=== PATIENT | male | born 1940 | race Caucasian/White ===

== ENCOUNTER 2016-07-24 09:44 | Inpatient (IN) ==
--- NOTE | 2016-07-21 21:35 | Discharge Summary ---
<Kady Fan - Last Filed: 07/23/16 16:41> Date of Encounter: 07/23/16 - Discharge Diagnosis (1) Loosening of shoulder joint prosthesis Priority: Primary Status: Acute Qualifiers: Encounter type: initial encounter Qualified Code(s): T84.038A - Mechanical loosening of other internal prosthetic joint, initial encounter; Z96.619 - Presence of unspecified artificial shoulder joint (2) CAD (coronary artery disease) Priority: Secondary Status: Chronic Qualifiers: Coronary Disease-Associated Artery/Lesion type: unspecified vessel or lesion type [place] vs. transplanted heart: unspecified whether [place] or transplanted heart Associated angina: angina presence unspecified Qualified Code(s): I25.10 - Atherosclerotic heart disease of [place] coronary artery without angina pectoris (3) MICHAEL (obstructive sleep apnea) Priority: Secondary Status: Chronic Comments: CPAP use at hospital (4) Asthma Priority: Secondary Status: Chronic Qualifiers: Asthma severity: unspecified severity Asthma complication type: uncomplicated Qualified Code(s): J45.909 - Unspecified asthma, uncomplicated (5) GERD (gastroesophageal reflux disease) Priority: Secondary Status: Chronic Qualifiers: Esophagitis presence: esophagitis presence not specified Qualified Code(s) : K21.9 - Gastro-esophageal reflux disease without esophagitis (6) HTN (hypertension) Priority: Secondary Status: Chronic Qualifiers: Hypertension type: essential hypertension Qualified Code(s): I10 - Essential (primary) hypertension - Discharge Medications Home Medications: OxyCODONE Immed Rel [Roxicodone 5 MG] 5 - 10 mg PO Q6HR PRN #40 tablet 07/21/16 [Rx] Acitretin [Soriatane] 10 mg PO DAILY 07/24/16 [History] Atorvastatin [Lipitor] 40 mg PO HS 07/24/16 [History] Cephalexin [Keflex] 500 mg PO BID 07/24/16 [History] Ciclopirox [Loprox] 120 ml TP 3XW 07/24/16 [History] Ergocalciferol (VITAMIN D2) [Vitamin D2] 50,000 unit PO FLORES 07/24/16 [History] Finasteride [Proscar] 5 mg PO DAILY 07/24/16 [History] FluocinoNIDE 0.05% CRM [Lidex] 1 appl TP 3XW 07/24/16 [History] Fluticasone/Salmeterol [Advair Hfa 230-21 Mcg Inhaler] 2 puff IH BID 07/24/16 [ History] Hydrochlorothiazide 25 mg PO DAILY 07/24/16 [History] Ipratropium/Albuterol Neb [Duoneb] 3 ml IH Q6HR PRN 07/24/16 [History] Isosorbide MONOnitrate (24 HR) [Imdur] 60 mg PO DAILY 07/24/16 [History] Levothyroxine [Synthroid] 50 mcg PO 0630 07/24/16 [History] NIFEdipine XL (24 HR) [Procardia XL] 60 mg PO DAILY 07/24/16 [History] Nitroglycerin [Nitrostat] 0.4 mg SL Q5M PRN 07/24/16 [History] Omeprazole [PriLOSEC] 20 mg PO DAILY 07/24/16 [History] Potassium Chloride [Klor-Con] 20 meq PO DAILY 07/24/16 [History] Allergies/Adverse Reactions: Allergies No Known Allergies Allergy (Verified 07/24/16 11:57) Primary care physician: Noel Petty - Patient Status Disposition: Home, Self-Care Condition: Good - Discharge Instructions Follow Up With: Marcellus Butler MD [Partnered Physician] - 08/01/16 1:00 pm Noel Petty DO [Primary Care Provider] - Additional Instructions: Discharge Instructions: Total Shoulder Please call [facility] ([phone]), your Primary Care Physician, or report to the Emergency Room if you have any of the following symptoms: Nausea, vomiting, fever greater that 101.5, swelling, chest pain, shortness of breath, increased pain/redness/drainage/odor for your incision site, numbness/ tingling, or any other concerning symptoms. ACTIVITY: Always keep your arm in the sling. Do not raise your arm away from your body. Do not use your arm to help with getting in or out of bed. No weight bearing permitted. Only perform those exercises given to you by your therapist. MEDICATIONS: Upon discharge resume your home medications. Take all the medications as prescribed. Take a stool softener if taking narcotic pain medications. Stool softeners are only effective if you drink enough fluids. Drink 6-8 glass of water or fluids a day, unless this is not allowed for another health problem. Despite using stool softeners, if you haven't had a bowel movement in 3 days, please switch to a gentle laxative. Gentle laxatives are sold over the counter. You should have a bowel movement within 24 hours, if not call the office. You will be discharged from the hospital with a prescription for pain medication. You are encouraged to decrease the use of narcotic pain medication as tolerated. Should you require a refill, please call the office. [facility] prescribes narcotic pain medication for only 4-6 weeks after surgery. If you require pain medication beyond this time period, you may be referred to your Primary Care Physician or to the Pain Clinic for further evaluation. Plan ahead for refills on pain medication as many narcotics either need to be picked up at the office or mailed. It is best to call 48-72 hours in advance of needing a prescription refill so you don't run out of medication. To help control the post-operative pain, you may take NSAIDs (Aleve,Advil, Motrin, ibuprofen, naprosyn) or Tylenol as prescribed on the bottle in addition to the pain medication. WOUND CARE: Leave the dressing on for 7 days. You may change the dressing if it becomes saturated greater than 50%. You can shower but not a tub bath or submerge your incision in water. Wash your hands with antibacterial soap, rinse and dry prior to any wound care. If you have tiffani the visiting nurse or rehab facility can remove the stapes 10-14 days after surgery and place steri -strips across the wound. Leave the steri-strips in place until they fall off on their won. You may let water from the shower run on top of the steri- stirips. If you do not have a visiting nurse or rehab facility, you will need to return to the office at 10-14 days for the tiffani to be removed. FOLLOW-UP: Please follow up with your surgeon in the orthopedic clinic, as scheduled - Hospital Course Hospital course: Mr. Mazariegos is a 75 year old male - Time Spent with Patient Total time spent providing and/or coordinating discharge services: <Marcellus Butler - Last Filed: 07/25/16 08:40> Date of Encounter: 07/25/16 Time of Encounter: 08:39 - Discharge Diagnosis (1) Loosening of shoulder joint prosthesis Priority: Primary Status: Acute Qualifiers: Encounter type: subsequent encounter Qualified Code(s): T84.038D - Mechanical loosening of other internal prosthetic joint, subsequent encounter; Z96.619 - Presence of unspecified artificial shoulder joint (2) Asthma Priority: Secondary Status: Chronic Qualifiers: Asthma severity: unspecified severity Asthma complication type: uncomplicated Qualified Code(s): J45.909 - Unspecified asthma, uncomplicated (3) CAD (coronary artery disease) Priority: Secondary Status: Chronic Qualifiers: Coronary Disease-Associated Artery/Lesion type: [place] artery [place] vs. transplanted heart: unspecified whether [place] or transplanted heart Associated angina: angina presence unspecified Qualified Code(s): I25.10 - Atherosclerotic heart disease of [place] coronary artery without angina pectoris (4) GERD (gastroesophageal reflux disease) Priority: Secondary Status: Chronic Qualifiers: Esophagitis presence: esophagitis presence not specified Qualified Code(s) : K21.9 - Gastro-esophageal reflux disease without esophagitis (5) HTN (hypertension) Priority: Secondary Status: Chronic Qualifiers: Hypertension type: essential hypertension Qualified Code(s): I10 - Essential (primary) hypertension (6) MICHAEL (obstructive sleep apnea) Priority: Secondary Status: Chronic Primary care physician: Noel Petty - Patient Status Functional capacity at discharge: independent ambulation Overall status at discharge: patient is progressing back to baseline - Hospital Course Hospital course: Mr. Mazariegos is a 75 year old male The patient had an uneventful postoperative course. They received antibiotics and physical therapy and were discharged in stable condition. There will follow -up in the office in 2 weeks. - Time Spent with Patient Total time spent providing and/or coordinating discharge services:
--- NOTE | 2016-07-24 10:04 | History & Physical Report ---
Date of Encounter: 07/24/16 Time of Encounter: 10:03 24 Hour HP Update - Instructions Instructions: If the History and Physical is less than 30 days old and was completed prior to A.M. admission and or procedure and has NOT been updated on calendar day of procedure please complete this update prior to performing procedure. - Update Patient reports changes in Medical Condition: No Changes in assessment/condition: No Changes in Medication: No Preop tests/diagnostics Reviewed: Yes Surgery Remains Indicated: Yes Consent for Planned Operative Procedure(s) Verified: Yes - Pre-Operative Checklist Preoperative Checklist Indicated: No Prophylactic Antibiotic Ordered: Yes Is VTE Prophylaxis Indicated?: Yes
[2016-07-24] MEDS ORDERED: Albuterol 2.5 MG/3 ML NEBULIZER IH ONE (10:10)
[2016-07-24] MEDS ORDERED: CeFAZolin Pre 2,000 MG/100 ML 2,000 MG/100 ML BAG IVPB ONE (10:10)
--- NOTE | 2016-07-24 10:14 | Anesthesia Evaluation PreOp ---
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: Denies Any Significant HX Other Medical History: Denies Any Significant HX, GERD, Other (Skin CA) Anesthesia History: No Prior Anesthetic Complications, Past Anesthesia Alcohol Use: unknown Drug use: none Medications and Allergies Atorvastatin 02/15/15 [History] Clopidogrel 02/15/15 [History] Cyclobenzaprine [Flexeril] 10 mg PO HS PRN #7 tablet 02/15/15 [Rx] Finasteride 02/15/15 [History] Hydrochlorothiazide 02/15/15 [History] Hydrocodone/Acetaminophen [[place] 5-325 Tablet] 1 tab PO Q6H PRN #10 tab [Rx] Levothyroxine 02/15/15 [History] NIFEdipine 02/15/15 [History] Omeprazole 02/15/15 [History] Sulfamethoxazole/Trimeth 02/15/15 [History] Albuterol Sulfate [Albuterol Inhaler] 2 puff IH QID 2 Days 09/06/15 [Rx] Benzonatate [Tessalon] 200 mg PO TID PRN #20 capsule 09/06/15 [Rx] Doxycycline 100 mg PO BID 7 Days 09/06/15 [Rx] MethylPREDNISolone [Medrol] 4 mg PO DAILY 6 Days 09/06/15 [Rx] OxyCODONE Immed Rel [Roxicodone 5 MG] 5 - 10 mg PO Q6HR PRN #40 tablet 07/21/16 [Rx] Allergies No Known Allergies Allergy (Unverified 01/03/15 08:26) - Meds/Allergy Pre-op Review Medications Reviewed: Yes Allergies Reviewed: Yes Beta Blockers on Current Med List: Yes If Beta Blockers taken, Date/Time (Last Dose taken): 07:00 07/24/2016 Anesthesia Results - Labs Laboratory Tests 07/15/16 07/15/16 07/15/16 08:26 08:26 08:26 WBC 8.9 Hgb 12.5 L Hct 38.6 Plt Count 256 INR 1.1 Sodium 140 Potassium 3.7 Chloride 102 Carbon Dioxide 27 BUN 28 H Creatinine 1.53 H Stress 01/03/2015 EFD - 70% No ischemis Echo 01/03/2015 EF 60-65% Mild diastolic dysfunction - Imaging EKG: image reviewed (SR, frequent PVC's and supraventricular premature complexes , RBBB, LAFB, LVH) Anesthesia Exam O2 Sat Height 1.68 m Height 1.68 m Weight 70.307 kg Weight 70.307 kg O2 Sat by Pulse Oximetry 100 Vital Signs Temp Pulse Resp BP Pulse Ox 98.6 F 97 18 157/87 100 07/24/16 10:07 07/24/16 10:07 07/24/16 10:07 07/24/16 10:07/24/16 10:07 - HEENT Pupil (Motor): Pupils equal, EOMI Mallampati: III Teeth: Normal Oral Opening: Greater than 3 - CALCINER OPERATOR LOC: Oriented CALCINER OPERATOR Motor: Normal RUE, Normal LUE, Normal RLE, Normal LLE, Normal Face CALCINER OPERATOR Sensory: Normal: RUE, LUE, RLE, LLE, Face - Cardiac Rhythm: Regular Murmur: None JVD: No Carotid Bruit: No - Pulmonary Breath Sounds: bilateral Clear Respiratory Effort: Symmetrical Anesthesia Assess/Plan ASA Score: 3 Modified [place] Scale for Level of Consciousness: Cooperative, oriented, and tranquil Anesthetic Plan: General, Regional (Left Brachial Plexus Block) Autologous Blood: Yes Monitoring Plan: Standard Monitors Recovery Plan: PACU
[2016-07-24] MEDS ORDERED: Ringers Solution, Lactated 1,000 ML IVC SCH ×3 (10:15→15:29)
[2016-07-24] MEDS ORDERED: *HR* FentaNYL (PF) 100 MCG/2 ML VIAL ONE (10:57)
[2016-07-24] MEDS ORDERED: *HR* Midazolam HCl 2 MG/2 ML VIAL ONE (10:57)
[2016-07-24] MEDS ORDERED: *HR* Propofol 200 MG/20 ML VIAL IVP ONE ×2 (10:58→11:38)
[2016-07-24] MEDS ORDERED: Lidocaine -MPF 2% 2 ML VIAL ONE (10:59)
[2016-07-24] MEDS ORDERED: ROPIVACAINE HCL/PF 0.5% 30 ML VIAL ONE (11:24)
--- NOTE | 2016-07-24 11:42 | Anesthesia Procedures ---
Date of Encounter: 07/24/16 Time of Encounter: 11:40 Procedures: Anesthesia - Nerve Block Procedure Date: 07/24/16 Time: 11:30 Allergies/Adv Reactions: NKA Pre-op Diagnosis: Left Shoulder arthritis Surgical Procedure: Left total shoulder reverse Checklist: Correct Patient Identifier, Correct procedure, History checked Correct side: Left Blood Thinner: No Monitor Applied: EKG, BP, Pulse Oximetry Supplemental Oxygen via Nasal Cannula (L/min): 2 Sedation: Versed (mg): 2 Sedation: Fentanyl (mcg): 100 Indication: Post Op Analgesia Pre-op Neuro Deficits: No Block Type: Supraclavicular, Other (SCP) Catheter placed: No Sterile Technique: Yes Ultrasound used: Yes Anatomy identified: Yes Visual spread of Local: Yes Neuro Stimulation: Yes Nerve Stimulator Range: 0.2 - 0.4 mA Blood on Needle Aspiration: No Smooth Injection of Local: Yes Pain with Injection of Local: No Prep: Chlorhexadine Needle: 22 x 50 mm Stimuplex Local: Ropivacaine (0.5% ) Volume (cc): 30ml Number of Attempts: 1 Complications: None/effective block Vitals: Vital Signs Temperature 98.6 F 07/24/16 10:07 Pulse Rate 97 07/24/16 10:07 Respiratory Rate 18 07/24/16 10:07 Blood Pressure 157/87 07/24/16 10:07 O2 Sat by Pulse Oximetry 100 07/24/16 10:07 Temperature 98.6 F 07/24/16 10:21 Pulse Rate 102 07/24/16 11:36 Respiratory Rate 16 07/24/16 11:36 Blood Pressure 146/79 07/24/16 11:36 O2 Sat by Pulse Oximetry 96 07/24/16 11:36
[2016-07-24] MEDS ORDERED: *HR* Morphine 2 MG/ML SYRINGE IVP PRN (11:43)
[2016-07-24] MEDS ORDERED: *HR* Promethazine 25 MG/ML VIAL IVP PRN (11:43)
[2016-07-24] MEDS ORDERED: Ondansetron 4 MG/2 ML VIAL ONE (13:12)
[2016-07-24] MEDS ORDERED: Dexamethasone 4 MG/ML VIAL ONE (13:12)
--- NOTE | 2016-07-24 13:18 | Orthopedic Operative Note ---
Date of procedure: 07/24/16 Pre-op diagnosis: Catastrophic loosening glenoid component left shoulder Post-op diagnosis: same Procedure: Procedure: Left Revision Total Shoulder replacement reverse Estimated blood loss: 200 cc Hardware: Arthrex: Small glenoid baseplate to 4.5 screws, one 6.5 screw, 5 stem , 15 mL spacer 6 constrained poly-spacer. 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 Patient had a significant cement mantle around humeral component.. Operative procedure: The patient was brought to the operating room and placed on the operating room table. The patient was placed in the modified beachchair position. All pressure points were padded appropriately. And the head was stabilized in the neutral position. The operative extremity was prepped and draped in the sterile surgical fashion. The patient received IV antibiotics prior to skin incision. A standard deltopectoral approach was made to the operative shoulder. Incision was made to the skin and subcutaneous tissue through the old incision,,hemo stasis was obtained with Bovie cautery. Using careful blunt dissection the deltopectoral interval was developed.. The deltopectoral interval was developed and the clavipectoral fascia was incised. An extensive debridement was performed, and the shoulder was dislocated. Cultures were obtained. Using an osteotome to clear out the soft tissue, the humeral component the head was removed first followed by the stem. The patient significant proximal bone loss. Anterior and posterior Bankart retractors were used to expose the glenoid , the glenoid component was removed without incident was completely displaced and fractured. The patient had poor glenoid bone stock. Decision was made to proceed with reverse shoulder replacement. The glenoid guide was seated the centering hole was made the glenoid was reamed with the appropriate reamer. This was positioned with an inferior tilt. The glenoid baseplate was seated and secured and locked in place with the locking screws. The baseplate was irrigated and dried the 36 lateral glenosphere was seated and secured. Attention was then turned to the humeral side. Bone cement was removed with the Stevie. This allowed for seating of a 5 stem. Had good rotational stability in 20 degrees of retroversion. Trial reduction found the shoulder to be relocatable and stable with the 15 metal and 6 constrained Veronika. The trial implants were removed the real implants were seated and secured in the shoulder was reduced. The patient had excellent motion and excellent stability no shuck. Fluoroscopy was used to confirm position of the glenoid component as well as the humeral stem within the humeral shaft. The deep tissue was irrigated with pulse irrigation deltopectoral interval was closed with #2 PDS suture. Superficially the subcutaneous tissue was closed with 0 PDS suture, the skin was closed with Dermabond. The patient placed sterile dressing, postoperative brace extubated and transferred to the recovery room in stable condition. Anesthesia: GETA Surgeon: Marcellus Butler Condition: stable Disposition: PACU
[2016-07-24 14:31] LABS: Hematocrit 36.5 % (37.5-50.1); Hemoglobin 11.9 g/dL (12.9-16.9)
--- NOTE | 2016-07-24 14:35 | Anesthesia Evaluation Post Op ---
Date of Encounter: 07/24/16 Time of Encounter: 14:34 - Vital Signs Vital Signs: Vital Signs/O2 Sat, Most Current Temp Pulse Resp BP Pulse Ox 97.4 F L 85 16 147/89 97 07/24/16 14:25 07/24/16 14:25 07/24/16 14:25 07/24/16 14:25 07/24/16 14:25 - Lungs Lungs: Clear Ascult./Percussion - Airway Airway: Non-obstructed - Cardiovascular Regular Rate - Mental Status Mental Status: Alert & Oriented, Answers Appropriately - Pain Pain Scale: 0 Pain Scale used: Numeric (1 - 10) - Nausea Vomiting Nausea Vomiting: Not Present - Hydration Hydration: Tolerates oral liquids, Has not voided - Discharge PostOp Status: Transfer Patient to floor
[2016-07-24] MEDS ORDERED: Sennosides 8.6 MG TABLET PO PRN (15:29)
[2016-07-24] MEDS ORDERED: *HR* OxyCODONE Immed Rel 5 MG TABLET PO PRN (15:29)
[2016-07-24] MEDS ORDERED: *HR* HYDROmorphone (PF) 1 MG/ML SYRINGE IVP PRN (15:29)
[2016-07-24] MEDS ORDERED: Ondansetron 4 MG/2 ML VIAL IVP PRN (15:29)
[2016-07-24] MEDS ORDERED: Acetaminophen 325 MG TABLET PO PRN (15:29)
[2016-07-24] MEDS ORDERED: MOM Conc 10 ML UD.LIQ PO PRN (15:29)
[2016-07-24] MEDS ORDERED: Naloxone 0.4 MG/ML INJ IVP PRN (15:29)
[2016-07-24] MEDS ORDERED: Temazepam 15 MG CAPSULE PO PRN (15:29)
[2016-07-24] MEDS ORDERED: Nitroglycerin 0.4 MG TAB.SUBL SL PRN (15:29)
[2016-07-24] MEDS ORDERED: Ipratropium/Albuterol Neb 3 ML IH PRN (16:00)
[2016-07-24] MEDS: *HR* OxyCODONE Immed Rel 5 MG TABLET PO PRN (16:39)
[2016-07-24] MEDS ORDERED: *HR* Enoxaparin 30 MG/0.3 ML SYRINGE SQ SCH (18:00)
[2016-07-24] MEDS: ceFAZolin 2,000 MG in D5% in Water 100 ML IVPB SCH (18:26)
[2016-07-24] MEDS: *HR* Enoxaparin 30 MG/0.3 ML SYRINGE SQ SCH (18:26)
[2016-07-24] MEDS: Budesonide/Formoterol 160/4.5 MDI IH SCH (22:18)
[2016-07-25] MEDS: ceFAZolin 2,000 MG in D5% in Water 100 ML IVPB SCH (01:15)
[2016-07-25] MEDS: *HR* OxyCODONE Immed Rel 5 MG TABLET PO PRN ×2 (05:30→09:55)
[2016-07-25] MEDS: *HR* Enoxaparin 30 MG/0.3 ML SYRINGE SQ SCH (05:30)
[2016-07-25 05:41] LABS: Hemoglobin 10.9 g/dL (12.9-16.9)
[2016-07-25 06:27] VITALS: BP 134/87
[2016-07-25] MEDS: Budesonide/Formoterol 160/4.5 MDI IH SCH (08:20)
--- NOTE | 2016-07-25 08:40 | Orthopedics Progress Note ---
Date of Encounter: 07/25/16 Time of Encounter: 08:40 - Assessment and Plan (1) Loosening of shoulder joint prosthesis Current Visit: Yes Status: Acute Qualifiers: Encounter type: subsequent encounter Qualified Code(s): T84.038D - Mechanical loosening of other internal prosthetic joint, subsequent encounter; Z96.619 - Presence of unspecified artificial shoulder joint (2) Asthma Current Visit: Yes Status: Chronic Qualifiers: Asthma severity: unspecified severity Asthma complication type: uncomplicated Qualified Code(s): J45.909 - Unspecified asthma, uncomplicated (3) CAD (coronary artery disease) Current Visit: Yes Status: Chronic Qualifiers: Coronary Disease-Associated Artery/Lesion type: [place] artery [place] vs. transplanted heart: unspecified whether [place] or transplanted heart Associated angina: angina presence unspecified Qualified Code(s): I25.10 - Atherosclerotic heart disease of [place] coronary artery without angina pectoris (4) GERD (gastroesophageal reflux disease) Current Visit: Yes Status: Chronic Qualifiers: Esophagitis presence: esophagitis presence not specified Qualified Code(s) : K21.9 - Gastro-esophageal reflux disease without esophagitis (5) HTN (hypertension) Current Visit: Yes Status: Chronic Qualifiers: Hypertension type: essential hypertension Qualified Code(s): I10 - Essential (primary) hypertension (6) MICHAEL (obstructive sleep apnea) Current Visit: Yes Status: Chronic Subjective Interval history: Patient was seen this morning doing well without complaints. Afebrile vital signs stable. Operative extremity: Neurovascularly intact Dressing clean dry and intact Calves nontender Assessment and plan: Continue with postoperative care Discharged today Objective Vital signs: Vital Signs Temp Pulse Resp BP Pulse Ox 07/25/16 06:25 98.8 F 57 14 134/87 96 07/25/16 03:50 97.4 F L 70 14 134/80 98 07/25/16 00:16 17 96 07/25/16 00:01 98.1 F 92 18 155/88 98 07/24/16 22:20 16 94 L 07/24/16 19:49 98.1 F 95 15 108/58 95 07/24/16 16:33 98 F 108 15 113/70 96 07/24/16 16:02 98 F 82 14 143/79 94 L 07/24/16 15:26 98.1 F 79 12 149/84 97 07/24/16 15:20 98.1 F 79 12 149/84 97 07/24/16 14:25 97.4 F L 85 16 147/89 97 07/24/16 14:15 86 16 148/91 96 07/24/16 14:05 98.0 F 79 16 153/82 97 07/24/16 13:55 85 16 144/89 98 07/24/16 13:45 81 16 149/85 98 07/24/16 13:35 97.0 F L 93 18 150/83 95 07/24/16 11:48 94 16 148/82 96 07/24/16 11:36 102 16 146/79 96 07/24/16 11:13 94 16 157/80 94 L 07/24/16 10:21 98.6 F 97 18 157/87 100 07/24/16 10:07 98.6 F 97 18 157/87 100 Intake and Output 07/24/16 07/25/16 07/25/16 23:59 07:59 15:59 Intake Total 220 / 220 240 / 240 Output Total 150 / 150 Balance 220 / 220 -150 / -150 240 / 240 Intake: IV Fluids 100 / 100 Ancef 2,000 MG In 100 / 100 Dextrose 5% 100 ML @ 200 mls/hr IVPB Q8HR [facility] Rx#: [id number] Oral 120 / 120 240 / 240 Output: Urine 150 / 150 Other: Meal Dinner Breakfast Percent of Meal Consumed 100% 95% - Labs CBC & BMP: 07/25/16 05:15 Labs: Abnormal lab results Hgb 10.9 g/dL (12.9-16.9) L 07/25/16 05:15 Hct 33.0 % (37.5-50.1) L 07/25/16 05:15 POC Glucose 157 (58-89) H 07/24/16 23:48 - VTE Documentation of Mechanical Device: Venous foot pump, device Consult Discharge Plan - Plan Additional Instructions: Discharge Instructions: Total Shoulder Please call [facility] ([phone]), your Primary Care Physician, or report to the Emergency Room if you have any of the following symptoms: Nausea, vomiting, fever greater that 101.5, swelling, chest pain, shortness of breath, increased pain/redness/drainage/odor for your incision site, numbness/ tingling, or any other concerning symptoms. ACTIVITY: Always keep your arm in the sling. Do not raise your arm away from your body. Do not use your arm to help with getting in or out of bed. No weight bearing permitted. Only perform those exercises given to you by your therapist. MEDICATIONS: Upon discharge resume your home medications. Take all the medications as prescribed. Take a stool softener if taking narcotic pain medications. Stool softeners are only effective if you drink enough fluids. Drink 6-8 glass of water or fluids a day, unless this is not allowed for another health problem. Despite using stool softeners, if you haven't had a bowel movement in 3 days, please switch to a gentle laxative. Gentle laxatives are sold over the counter. You should have a bowel movement within 24 hours, if not call the office. You will be discharged from the hospital with a prescription for pain medication. You are encouraged to decrease the use of narcotic pain medication as tolerated. Should you require a refill, please call the office. [facility] prescribes narcotic pain medication for only 4-6 weeks after surgery. If you require pain medication beyond this time period, you may be referred to your Primary Care Physician or to the Pain Clinic for further evaluation. Plan ahead for refills on pain medication as many narcotics either need to be picked up at the office or mailed. It is best to call 48-72 hours in advance of needing a prescription refill so you don't run out of medication. To help control the post-operative pain, you may take NSAIDs (Aleve,Advil, Motrin, ibuprofen, naprosyn) or Tylenol as prescribed on the bottle in addition to the pain medication. WOUND CARE: Leave the dressing on for 7 days. You may change the dressing if it becomes saturated greater than 50%. You can shower but not a tub bath or submerge your incision in water. Wash your hands with antibacterial soap, rinse and dry prior to any wound care. If you have tiffani the visiting nurse or rehab facility can remove the stapes 10-14 days [address] surgery [address] steri -strips across the wound. Leave the steri-strips in place until they fall off on their won. You may let water from the shower run on top of the steri- stirips. If you do not have a visiting nurse or rehab facility, you will need to return to the office at 10-14 days for the tiffani to be removed. FOLLOW-UP: Please follow up with your surgeon in the orthopedic clinic, as scheduled Referrals: Marcellus Butler MD [Partnered Physician] - 08/01/16 1:00 pm Noel Petty DO [Primary Care Provider] -
[2016-07-25] MEDS ORDERED: Isosorbide MONOnitrate (24 HR) 60 MG TAB.ER.24H PO SCH (09:00)
[2016-07-25] MEDS ORDERED: hydroCHLOROthiazide 25 MG TABLET PO SCH (09:00)
[2016-07-25] MEDS ORDERED: NIFEdipine XL (24 HR) 60 MG TAB.ER.24 PO SCH (09:00)
[2016-07-25] MEDS ORDERED: ACITRETIN 10 MG PO SCH (09:00)
[2016-07-25] MEDS ORDERED: Finasteride 5 MG TABLET PO SCH (09:00)
[2016-07-26] MEDS ORDERED: FluocinoNIDE 0.05% CRM 15 GM TUBE TP SCH (09:00)
== END 2016-07-25 11:35 | disposition home or self-care (01) | DRG 483 ==
LOC: SAMDAY 09:44 → 3NENU 15:10
PROVIDERS: ADMIT Orthopaedic Surgery; ATTEND Orthopaedic Surgery

== ENCOUNTER 2016-11-14 02:59 | Observation (INO) ==
[2016-11-14] MEDS ORDERED: 0.9 % Sodium Chloride 1,000 ML IVC ONE (03:31)
[2016-11-14] MEDS ORDERED: GI Cocktail 40 ML EACH PO ONE (03:31)
[2016-11-14] MEDS ORDERED: *HR* Promethazine 25 MG/ML VIAL IVP ONE (03:31)
--- NOTE | 2016-11-14 03:35 | Emergency Department Note ---
Disposition Clinical Impression: Chest pain Qualifiers: Chest pain type: unspecified Qualified Code(s): R07.9 - Chest pain, unspecified Disposition: Admitted As Inpatient Condition: Fair Referrals: Noel Petty DO [Primary Care Provider] - Forms: ED Satisfaction Letter Time of Disposition: 06:48 General Adult HPI - General Chief complaint: ED Chest Pain Stated complaint: Heartburn Time Seen by Provider: 11/14/16 03:25 Source: patient Mode of arrival: wheelchair Limitations: no limitations Nursing Notes Reviewed: Yes Vital Signs Reviewed: Yes - History of Present Illness HPI Narrative: Patient is brought to the emergency department tonight with complaints upper epigastric pain possible chest pain. He states that these symptoms have been ongoing for about 10 days. He states that he has had no fever he does have nausea and severe intense abdominal pain that radiate into the right and left upper quadrant of his abdomen. He denies any diaphoresis at this time. Past medical history is significant for hypertension and is also had a history of ulcers in the past. No abdominal surgeries noted. Onset (ago): week(s) (2) Location: chest, abdomen Radiation: non-radiation Pain Severity: severe Pain Scale: 10 Quality: stabbing Consistency: intermittent Improves with: medication (pEPTO-bISMOL AND/OR ANTACIDS) Worsens with: nothing Associated symptoms: Reports: chest pain, diaphoresis, loss of appetite, nausea/ vomiting. Denies: cough, fever/chills, headaches, malaise, rash, seizure, shortness of breath, syncope, weakness - Related Data Home Medications Medication Instructions Recorded Confirmed Acitretin [Soriatane] 10 mg PO DAILY 07/24/16 07/24/16 Atorvastatin [Lipitor] 40 mg PO HS 07/24/16 07/24/16 Ciclopirox [Loprox] 120 ml TP 3XW 07/24/16 07/24/16 Ergocalciferol (VITAMIN D2) 50,000 unit PO FLORES 07/24/16 07/24/16 [Vitamin D2] Finasteride [Proscar] 5 mg PO DAILY 07/24/16 07/24/16 FluocinoNIDE 0.05% CRM [Lidex] 1 appl TP 3XW 07/24/16 07/24/16 Fluticasone/Salmeterol [Advair Hfa 2 puff IH BID 07/24/16 07/24/16 230-21 Mcg Inhaler] Ipratropium/Albuterol Neb [Duoneb] 3 ml IH Q6HR PRN 07/24/16 07/24/16 Isosorbide MONOnitrate (24 HR) 60 mg PO DAILY 07/24/16 07/24/16 [Imdur] Levothyroxine [Synthroid] 50 mcg PO 0630 07/24/16 07/24/16 NIFEdipine XL (24 HR) [Procardia 60 mg PO DAILY 07/24/16 07/24/16 XL] Nitroglycerin [Nitrostat] 0.4 mg SL Q5M PRN 07/24/16 07/24/16 Omeprazole [PriLOSEC] 20 mg PO DAILY 07/24/16 07/24/16 Potassium Chloride [Klor-Con] 20 meq PO DAILY 07/24/16 07/24/16 cephALEXin [Keflex] 500 mg PO BID 07/24/16 07/24/16 hydroCHLOROthiazide 25 mg PO DAILY 07/24/16 07/24/16 [Hydrochlorothiazide] Previous Rx's Medication Instructions Recorded OxyCODONE Immed Rel [Roxicodone 5 5 - 10 mg PO Q6HR PRN #40 tablet 07/21/16 MG] GI Cocktail [Gi Cocktail] 40 ml PO ONCE 7 Days 11/08/16 Omeprazole [PriLOSEC] 40 mg PO DAILY #30 cap 11/08/16 Sucralfate [Carafate] 1 gm PO QIDAC #120 tablet 11/08/16 Allergies Allergy/AdvReac Type Severity Reaction Status Date / Time No Known Allergies Allergy Verified 11/14/16 03:04 All systems ED: reviewed and negative except as stated. Constitutional: Denies: fever, chills, weakness, weight change Eyes: Denies: eye pain, eye discharge, vision change ENT ED: Denies: ear pain, throat pain, dental pain, hearing loss, epistaxis, congestion, dysphagia Cardiovascular: Reports: chest pain. Denies: palpitations, dyspnea on exertion , orthopnea, paroxysmal nocturnal dyspnea Respiratory: Denies: cough, dyspnea, wheezes, hemoptysis, stridor Gastrointestinal: Reports: abdominal pain, nausea. Denies: vomiting, diarrhea, hematemesis, melena, hematochezia Musculoskeletal: Denies: back pain, neck pain, arthralgia, myalgia Integumentary: Denies: rash, abrasion, lesions Neurological: Denies: headache, weakness, numbness, paresthesias, confusion, abnormal gait, vertigo Psychiatric: Denies: anxiety, depression, suicidal thoughts, homicidal thoughts , auditory hallucinations, visual hallucinations Endocrine: Denies: fatigue Past Medical History - Past Medical History Attestation: Yes The following information was validated with the patient. Source: patient, nursing notes reviewed Medical history: Reports: arthritis, GERD, hyperlipidemia, hypertension Surgical history: Reports: orthopedic, other Psychiatric history: Reports: no psych history - Social History Smoking Status: Never smoker Smokeless Tobacco Status: No Alcohol use: Reports: none Drug use: Reports: none Physical Exam - General Limitations: no limitations General appearance: alert - Head Head exam: atraumatic, normocephalic, normal inspection - Eye Eye exam: Present: normal appearance, PERRL, EOMI - ENT ENT exam: normal exam, normal oropharynx, mucous membranes moist - Neck Neck exam: Present: normal inspection, full ROM, trachea midline - Chest Chest inspection: Present: normal inspection, symmetric chest wall rise - Respiratory Respiratory exam: Present: normal lung sounds bilaterally - Cardiovascular Cardiovascular exam: Present: regular rate, normal rhythm, tachycardia, normal heart sounds. Absent: systolic murmur, diastolic murmur, JVD - Abdominal Exam Abdominal exam: Present: tenderness, diminished bowel sounds. Absent: distention, guarding, rebound Abdominal tenderness: Present: RUQ, LUQ, epigastrium - Extremities Exam Extremities exam: Present: normal inspection, full ROM. Absent: tenderness, pedal edema - Back Exam Back exam: Present: normal inspection, full ROM. Absent: tenderness, muscle spasm - Neurological Exam Neurological exam: Present: alert, oriented X3, CN II-XII intact, normal gait, reflexes normal. Absent: motor sensory deficit - Psychiatric Psychiatric exam: Present: normal affect, normal mood. Absent: depressed, agitated, anxious - Skin Skin exam: Present: warm, dry, intact, normal color Course - Consultations Consultation #1: [id number] paged hospitalist 3 times over the next hour. Once she called back she advised to consult with cardiology. [address] Underwood and she will notify Dr. Gonzales, and admit to hospitalist. Advised hospitalist to admit patient to the hospital . Report to Marine Mcneal PA-C who will assume care of patient in the ED. Time: 06:47 Vital Signs Temperature 97.8 F 11/14/16 03:00 Pulse Rate 104 11/14/16 03:00 Respiratory Rate 18 11/14/16 03:00 Blood Pressure 174/77 11/14/16 03:00 O2 Sat by Pulse Oximetry 98 11/14/16 03:00 Temperature 97.8 F 11/14/16 03:00 Pulse Rate 84 11/14/16 06:12 Respiratory Rate 18 11/14/16 06:12 Blood Pressure 144/93 11/14/16 06:12 O2 Sat by Pulse Oximetry 99 11/14/16 06:12 Oxygen Delivery Oxygen Delivery Room Air Medical Decision Making - MDM Narrative Medical decision making narrative: chest pain abdominal pain - Lab Data Lab results reviewed: Yes I reviewed the patient's lab results. Result diagrams: 11/14/16 03:17 11/14/16 03:17 Lab Results 11/14/16 11/14/16 11/14/16 Range/Units 03:17 03:17 03:17 WBC 9.9 (4.3-11.1) K/mcL RBC 5.04 (4.19-5.50) M/mcL Hgb 13.1 (12.9-16.9) g/dL Hct 41.3 (37.5-50.1) % MCV 81.9 L (83.0-100.0) fL MCH 26.0 L (28.0-33.3) pg MCHC 31.7 (31.6-35.5) g/dL RDW 16.9 H (11.5-14.5) % Plt Count 229 (140-400) K/mcL MPV 10.0 (9.4-12.4) fL Immature Gran % 0.3 (0-4) % Seg Neutrophils % 58.9 % Lymphocytes % 32.0 % Monocytes % 7.3 % Eosinophils % 0.9 % Basophils % 0.6 % Neutrophils # 5.9 (1.6-8.9) K/mcL Lymphocytes # 3.2 (0.6-4.6) K/mcL Monocytes # 0.7 (0.0-1.3) K/mcL Eosinophils # 0.1 (0.0-0.6) K/mcL Basophils # 0.1 (0.0-0.2) K/mcL Sodium 140 (136-145) mEq/L Potassium 3.9 (3.5-4.5) mEq/L Chloride 103 (98-109) mEq/L Carbon Dioxide 25 (19-29) mEq/L BUN 34 H (8-26) mg/dL Creatinine 1.90 H (0.72-1.25) mg/dL Est GFR ( Amer) 42 L (> 60) Est GFR (Non-Af Amer) 34 L (> 60) BUN/Creatinine Ratio 18 (6-26) Glucose 97 (70-99) mg/dL Calculated Osmolality 298 (280-300) Calcium 9.4 (8.6-10.8) mg/dL Total Bilirubin 0.2 (0.2-1.2) mg/dL Direct Bilirubin 0.1 (0.0-0.5) mg/dL Indirect Bilirubin 0.1 (0.0-1.2) mg/dL AST 31 (5-34) Units/L ALT 19 (0-55) Units/L Alkaline Phosphatase 70 (38-126) Units/L Troponin I 0.04 H* (0-0.03) ng/mL Serum Total Protein 6.9 (6.0-8.3) g/dL Albumin 3.7 (3.5-5.0) g/dL Globulin 3.2 (2.4-3.5) g/dL Albumin/Globulin Ratio 1.2 (1.1-2.2) Amylase 70 (25-125) Units/L Lipase 21 (8-78) Units/L Urine Color (Yellow) Urine Clarity (Clear) Urine pH (5.0-8.0) pH Units Ur Specific [place] (1.010-1.025) Urine Protein (Neg-Trace) mg/dL Urine Glucose (UA) (Normal) mg/dL Urine Ketones (Negative) mg/dL Urine Blood (Negative) Urine Nitrite (Negative) Urine Bilirubin (Negative) Urine Urobilinogen (Normal) mg/dL Ur Leukocyte Esterase (Negative) Ur Culture Indicated? (NO) 11/14/16 Range/Units 03:47 WBC (4.3-11.1) K/mcL RBC (4.19-5.50) M/mcL Hgb (12.9-16.9) g/dL Hct (37.5-50.1) % MCV (83.0-100.0) fL MCH (28.0-33.3) pg MCHC (31.6-35.5) g/dL RDW (11.5-14.5) % Plt Count (140-400) K/mcL MPV (9.4-12.4) fL Immature Gran % (0-4) % Seg Neutrophils % % Lymphocytes % % Monocytes % % Eosinophils % % Basophils % % Neutrophils # (1.6-8.9) K/mcL Lymphocytes # (0.6-4.6) K/mcL Monocytes # (0.0-1.3) K/mcL Eosinophils # (0.0-0.6) K/mcL Basophils # (0.0-0.2) K/mcL Sodium (136-145) mEq/L Potassium (3.5-4.5) mEq/L Chloride (98-109) mEq/L Carbon Dioxide (19-29) mEq/L BUN (8-26) mg/dL Creatinine (0.72-1.25) mg/dL Est GFR ( Amer) (> 60) Est GFR (Non-Af Amer) (> 60) BUN/Creatinine Ratio (6-26) Glucose (70-99) mg/dL Calculated Osmolality (280-300) Calcium (8.6-10.8) mg/dL Total Bilirubin (0.2-1.2) mg/dL Direct Bilirubin (0.0-0.5) mg/dL Indirect Bilirubin (0.0-1.2) mg/dL AST (5-34) Units/L ALT (0-55) Units/L Alkaline Phosphatase (38-126) Units/L Troponin I (0-0.03) ng/mL Serum Total Protein (6.0-8.3) g/dL Albumin (3.5-5.0) g/dL Globulin (2.4-3.5) g/dL Albumin/Globulin Ratio (1.1-2.2) Amylase (25-125) Units/L Lipase (8-78) Units/L Urine Color Yellow (Yellow) Urine Clarity Clear (Clear) Urine pH 6.5 (5.0-8.0) pH Units Ur Specific [place] 1.020 (1.010-1.025) Urine Protein Negative (Neg-Trace) mg/dL Urine Glucose (UA) Normal (Normal) mg/dL Urine Ketones Negative (Negative) mg/dL Urine Blood Negative (Negative) Urine Nitrite Negative (Negative) Urine Bilirubin Negative (Negative) Urine Urobilinogen Normal (Normal) mg/dL Ur Leukocyte Esterase Negative (Negative) Ur Culture Indicated? NO (NO) - Radiology Data Radiology results reviewed: Yes I reviewed the patient's radiology results. Attestation Statement - Attestation Attestation: I, Wiliam Garcia, examined this patient and my medical decision-making was reviewed with the MOTORCYCLE SERVICE TECHNICIAN/PA/Advanced Practice Nurse/Resident Physician. I agree with the documented findings, disposition and treatment plan as described except to the extent set forth below. 76-year-old male presents with concerns of pain in his epigastrium. Patient states he has associated shortness of breath, nausea and diaphoresis with this pain. Has a history of coronary artery disease with multiple cardiac catheterizations however he denies history of stenting. Initial EKG showed normal sinus rhythm with a rate of 88 with multiple PACs and PVCs. Initial troponin returned at 0.04. Patient had a repeat episode of chest pain emergency department had a repeat EKG that showed normal sinus rhythm with rate of 96 with PACs however it also showed increased ST depression in V3 and V4. Patient will be admitted to the hospital for further care and evaluation. He is given aspirin emergency department. Cardiology was called by the PA who agreed with the plan.
[2016-11-14 03:43] LABS: Basophils # 0.1 K/mcL (0.0-0.2); Basophils % 0.6 %; Eosinophils # 0.1 K/mcL (0.0-0.6); Eosinophils % 0.9 %; Hematocrit 41.3 % (37.5-50.1); Hemoglobin 13.1 g/dL (12.9-16.9); Immature Granulocytes % 0.3 % (0-4); Lymphocytes # 3.2 K/mcL (0.6-4.6); Mean Corpuscular HGB Conc 31.7 g/dL (31.6-35.5); Mean Corpuscular Volume 81.9 fL (83.0-100.0); Monocytes # 0.7 K/mcL (0.0-1.3); Monocytes % 7.3 %; Neutrophils # 5.9 K/mcL (1.6-8.9); Platelet Count 229 K/mcL (140-400); Red Blood Count 5.04 M/mcL (4.19-5.50); Red Cell Distribution Width 16.9 % (11.5-14.5); Segmented Neutrophils % 58.9 %
[2016-11-14 03:54] LABS: Albumin 3.7 g/dL (3.5-5.0); Albumin/Globulin Ratio 1.2 (1.1-2.2); Bilirubin,Direct 0.1 mg/dL (0.0-0.5); Bilirubin,Indirect 0.1 mg/dL (0.0-1.2); Bilirubin,Total 0.2 mg/dL (0.2-1.2); Calcium 9.4 mg/dL (8.6-10.8); Globulin 3.2 g/dL (2.4-3.5); Potassium 3.9 mEq/L (3.5-4.5); Total Protein 6.9 g/dL (6.0-8.3)
[2016-11-14 04:05] LABS: Bilirubin,Urine Negative (Negative); Blood,Urine Negative (Negative); Clarity,Urine Clear (Clear); Color,Urine Yellow (Yellow); Glucose,Urine (UA) Normal (Normal); Ketones,Urine Negative (Negative); Leukocyte Esterase,Urine Negative (Negative); Nitrite,Urine Negative (Negative); PH,Urine 6.5 pH Units (5.0-8.0); Protein,Urine Negative (Neg-Trace); Urobilinogen,Urine Normal (Normal)
[2016-11-14] MEDS ORDERED: Aspirin 325 MG TABLET PO ONE (04:06)
[2016-11-14] MEDS ORDERED: Naloxone 0.4 MG/ML INJ IVP PRN (07:57)
[2016-11-14] MEDS ORDERED: Acetaminophen 325 MG TABLET PO PRN (07:57)
[2016-11-14] MEDS ORDERED: Ondansetron 4 MG/2 ML VIAL IVP PRN (07:57)
[2016-11-14] MEDS: Finasteride 5 MG TABLET PO SCH (08:39)
[2016-11-14] MEDS: *HR* HYDROcodone/Acet 5/325 mg TABLET PO PRN ×2 (08:39→23:35)
[2016-11-14] MEDS: Pantoprazole 40 MG VIAL IVP SCH ×2 (09:00→16:46)
[2016-11-14] MEDS: *HR* Morphine 2 MG/ML SYRINGE IVP PRN ×2 (09:01→19:41)
--- NOTE | 2016-11-14 09:01 | Internal Med History&Physical ---
Date of Encounter: 11/14/16 Time of Encounter: 09:01 Assessment and Plan (1) Dyspepsia Current visit: Yes Status: Acute Patient with history of Gastric Ulcers, NSAIDS use, and abdominal pain he also endorsed dark stools No hematemesis he hasn't been scoped for years Reports worsening with meals, no nausea or vomiting Pain resolved promptly with GI cocktail Start IV PPI BID GI consult for EGD Abdomen and Pelvis CT showed diverticulosis withput diverticulitis, cholelithiasis, renal cysts, lipase is normal Continue home dose of sucralfate D/C NSAIDS Check lactate, low suspicion for bowel ischemia He is hemodynamically stable,, his Hb is stable (2) Elevated troponin Current visit: Yes Status: Acute Troponin elevated at 0.04 X2 Patient denies chest pain, nausea, dizziness, or diaphoresis he has CKD III, on review of his chart and labs His troponin elevation is unlikely due to ACS, however, will trend Will start Lipitor, ACEI, BB Continue ASA 81mg daily Check Lipid, A1C EKG showed NSR and PACs, unremarkable/non-specific T wave changes Obtain ECHO and consult cardiology prn (3) CAD (coronary artery disease) Current visit: Yes Status: Chronic Non-obstructive Previous LHC with no obstructive lesions or stents As in elevated troponin Qualifiers: Coronary Disease-Associated Artery/Lesion type: [place] artery [place] vs. transplanted heart: unspecified whether [place] or transplanted heart Associated angina: angina presence unspecified Qualified Code(s): I25.10 - Atherosclerotic heart disease of [place] coronary artery without angina pectoris (4) Asthma Current visit: Yes Status: Chronic Not in exacerbation at this time Continue home albuterol,advair, singulair Qualifiers: Asthma severity: unspecified severity Asthma complication type: uncomplicated Qualified Code(s): J45.909 - Unspecified asthma, uncomplicated (5) HTN (hypertension) Current visit: Yes Status: Chronic Controlled Resume home meds Qualifiers: Hypertension type: essential hypertension Qualified Code(s): I10 - Essential (primary) hypertension (6) MICHAEL (obstructive sleep apnea) Current visit: Yes Status: Chronic CPAP at night (7) CKD (chronic kidney disease) stage 3, GFR 30-59 ml/min Current visit: Yes Status: Chronic GFR and Cr close to baseline Avoid nephrotoxins and continue to monitor Internal Medicine - H&P: HPI Chief complaint: Abdominal pain Admitted From: Home Plans for Post Hospital Care: Home History of present illness: Mr. Mazariegos is a 76 year old male with PMH of Tinea capitis, HTN, HLD, Non- obstructive CAD, Peptic Ulcer disease, OA, Patient is seen and examined at bedside along his and son He reports a severe abdominal pain feels like a burning that arises in the infraumbilical region, radiates to the epigastric region and stays right there. When pain occurs, its sometimes colicky, and sometimes burning, he denies radiation to the back or his chest. he denies chest pain, diaphoresis, dizziness , palpitations. he has nausea when the pain starts. At time of review, he had one episode of the abdominal pain that was said to be 5-6/10, colicky and non- radiating. He denies SOB, cough, orthopnea, dyspnea, PND, or ankle swelling No change in his bowel habits Even though he has a history of Peptic Ulcer, he has been taking NSAIDs for OA- Meloxiam and Ibuprofen He endorsed black stool, no hematemesis, no weight loss, no bleeding per rectum He reports he had a similar episode of epigastric pain and went to urgent care during which he received GI cocktail that promptly resolved his pain In the ER, his work up revealed unremarkable CBC, Chem, Cr slighlty elevated above baseline, Initial EKG showed NSR, EKG was repeated during his episode of abdominal pain which showed St depression in V3, V4 1mm. Troponin was levetaed at 0.04 X2 -3 hours. Abdomen/pelvis CT showed diverticulosis without diverticulitis, cholelithiasis , no choleystitis, renal cystst, enlarged prostate with BENNETT. Past Med Surg Social Fam HX - Past Medical History Medical history: arthritis, cancer, GERD, hyperlipidemia, hypertension Psychiatric history: no psych history - Past Surgical History Surgical History: orthopedic, other - Social History Smoking Status: Never smoker Smokeless Tobacco Status: No Alcohol use: none Drug use: none - Family History Mother Living Status: Hx Family Cancer: Yes ("blood") Father Living Status: Hx Family Cardiac Disorders: Yes Internal Medicine - H&P: Meds Acitretin [Soriatane] 10 mg PO DAILY 07/24/16 [History] Atorvastatin [Lipitor] 40 mg PO HS 07/24/16 [History] Ciclopirox [Loprox] 120 ml TP 3XW 07/24/16 [History] Ergocalciferol (VITAMIN D2) [Vitamin D2] 50,000 unit PO FLORES 07/24/16 [History] Finasteride [Proscar] 5 mg PO DAILY 07/24/16 [History] FluocinoNIDE 0.05% CRM [Lidex] 1 appl TP 3XW 07/24/16 [History] Fluticasone/Salmeterol [Advair Hfa 230-21 Mcg Inhaler] 2 puff IH BID 07/24/16 [ History] Ipratropium/Albuterol Neb [Duoneb] 3 ml IH Q6HR PRN 07/24/16 [History] Isosorbide MONOnitrate (24 HR) [Imdur] 60 mg PO DAILY 07/24/16 [History] Levothyroxine [Synthroid] 50 mcg PO 0630 07/24/16 [History] NIFEdipine XL (24 HR) [Procardia XL] 60 mg PO DAILY 07/24/16 [History] Nitroglycerin [Nitrostat] 0.4 mg SL Q5M PRN 07/24/16 [History] Omeprazole [PriLOSEC] 20 mg PO DAILY 07/24/16 [History] Potassium Chloride [Klor-Con] 20 meq PO DAILY 07/24/16 [History] hydroCHLOROthiazide [Hydrochlorothiazide] 25 mg PO DAILY 07/24/16 [History] Aspirin [Lo-Dose Aspirin EC] 81 mg PO DAILY 11/14/16 [History] Calcium Carbonate [Calcium] 500 mg PO DAILY 11/14/16 [History] Fenofibrate Nanocrystallized [Tricor] 145 mg PO DAILY 11/14/16 [History] Ibuprofen [Motrin] 200 mg PO Q6HR PRN 11/14/16 [History] Magnesium Oxide [Magnesium] 400 mg PO BID 11/14/16 [History] Meloxicam [Mobic] 15 mg PO DAILY 11/14/16 [History] Metoprolol XL (24 HR) Succ [Toprol XL] 25 mg PO DAILY 11/14/16 [History] OxyCODONE Immed Rel [Roxicodone 5 MG] 5 mg PO Q6HR PRN 11/14/16 [History] Sucralfate [Carafate] 1 gm PO QIDAC 11/14/16 [History] Allergies No Known Allergies Allergy (Verified 11/14/16 03:04) All Systems PM: A 10-system review of systems was performed and is negative for pertinent findings except as documented above in the HPI. - Constitutional Constitutional: no chills, no fever(s), no night sweats - EENT Eyes: no change in vision, no discharge, no pain, no photophobia Ears: no ear discharge, no ear pain, no tinnitus Nose, mouth and throat: no dysphagia, no nasal discharge, no neck pain, no sore throat - Cardiovascular Cardiovascular ROS IM: as per HPI - Respiratory Respiratory: as per HPI - Gastrointestinal Gastrointestinal: as per HPI - Musculoskeletal Musculoskeletal ROS IM: no numbness, no tingling - Integumentary Integumentary IM: no rash, no unusual bruising - Neurological Neurological ROS: no confusion, no convulsions, no focal weakness, no numbness, no tingling, no tremor(s) - Hematologic/Lymphatic Hematologic/Lymphatic: no easy bruising - Constitutional Vitals: Temp Pulse Resp BP Pulse Ox 97.9 F 79 16 119/74 97 11/14/16 07:49 11/14/16 07:49 11/14/16 07:49 11/14/16 07:49 11/14/16 07:49 General appearance: Present: mild distress, A&O X 3, pleasant - Head Head exam: Present: atraumatic, normocephalic - Eye Eye exam: Present: PERRL, conjuntiva pink, sclera anicteric Pupils: Present: PERRL - Neck Neck exam general surgery: Present: supple, trachea midline. Absent: lymphadenopathy - Respiratory Respiratory exam: Present: CTAB. Absent: accessory muscle use, rales, rhonchi, wheezes - Cardiovascular Cardiovascular exam: Present: RRR, +S1, +S2. Absent: diastolic murmur, gallop, rubs, systolic murmur - GI/Abdominal GI/Abdominal exam: Present: normal bowel sounds, soft, no peritoneal signs. Absent: distended, tenderness - Extremities Exam Extremities exam: Present: warm, radial pulses palpable and symetrical. Absent : calf tenderness, cyanotic, pedal edema - Neurological Exam Neurological exam: Present: alert, CN II-XII intact, oriented X3, no focal deficits. Absent: pronater drift, facial droop, speech deficit - Skin Skin exam: Present: dry, intact Internal Med - H&P Results - Labs CBC & Chem 7: 11/14/16 03:17 11/14/16 03:17
[2016-11-14] MEDS ORDERED: Nitroglycerin 0.4 MG TAB.SUBL SL PRN (09:02)
[2016-11-14] MEDS: 0.9 % Sodium Chloride 1,000 ML IVC SCH (10:46)
[2016-11-14] MEDS: Sucralfate 1 GM TABLET PO SCH ×3 (10:46→22:09)
[2016-11-14 12:25] LABS: Chol/HDL Ratio 4.1 (0-4.9)
[2016-11-14 13:55] LABS: Hemoglobin A1C 5.5 %
--- NOTE | 2016-11-14 14:03 | Gastroenterology Consult Note ---
<CortesArmando winter Janine - Last Filed: 11/14/16 14:00> Date of Encounter: 11/14/16 Time of Encounter: 12:25 - Assessment and plan (1) Dyspepsia Current Visit: Yes Status: Acute Assessment and plan: Continue PPI and Carafate for now. Plan for EGD tomorrow to r/o esophagitis, gastritis, duodenitis, PUD, MW tear, or AVM. NPO at midnight. (2) CAD (coronary artery disease) Current Visit: Yes Status: Chronic Assessment and plan: Management per primary team. Qualifiers: Coronary Disease-Associated Artery/Lesion type: [place] artery [place] vs. transplanted heart: unspecified whether [place] or transplanted heart Associated angina: angina presence unspecified Qualified Code(s): I25.10 - Atherosclerotic heart disease of [place] coronary artery without angina pectoris - Time Spent With Patient Total time spent is greater than 50% in coordination of care (as documented) at patient's floor/unit and/or counseling patient: GI History of Present Illness - Data of Consult Patient: new to practice Consult date: 11/14/16 Requesting Physician: Cynthia Horvath MD - Consult Narrative Reason for consult: dyspepsia, melena History of present illness: Mr. Mazariegos is a 76 year old male with PMHx of arthritis, HTN, HLD, PUD, OA who presented to the ED with epigastric abdominal pain and episode of melena. His abdominal pain has been present for the past 2 weeks, and he states he has noticed black stools for the past 2-3 days. He denies fever, chills, chest pain , SOB, hematemesis, or hematochezia. CT A/P with diverticulosis, cholelithiasis , bilateral renal cysts. We were consulted for dyspepsia and history of gastric ulcers. Procedures: Colonoscopy 02/27/2012 Dr. Petty: BING revealed enlarged prostate otherwise colonoscopy normal. NSAIDs: Mobic, ASA, ibuprofen Anticoagulation: None Past Med Surg Social Fam HX - Past Medical History Medical history: arthritis, cancer, GERD, hyperlipidemia, hypertension Psychiatric history: no psych history - Past Surgical History Surgical History: orthopedic, other - Social History Smoking Status: Never smoker Smokeless Tobacco Status: No Alcohol use: none Drug use: none - Family History Mother Living Status: Hx Family Cancer: Yes ("blood") Father Living Status: Hx Family Cardiac Disorders: Yes - Gastrointestinal Gastrointestinal: Present: as per HPI - Constitutional Constitutional: as per HPI - EENT Eyes: as per HPI Ears: Present: as per HPI Nose, mouth and throat: Present: as per HPI - Cardiovascular Cardiovascular ROS: Present: as per HPI - Respiratory Respiratory IM: Present: as per HPI - Genitourinary Genitourinary: Absent: change in color, Urinary frequency - Neurological ROS Neurological GI: Present: as per HPI - Hematologic/Lymphatic Hematologic/Lymphatic pediatric: Present: as per HPI - Musculoskeletal Musculoskeletal ROS GI: Present: as per HPI - Integumentary Integumentary GI: Present: as per HPI - Psychiatric ROS Psychiatric GI: Present: as per HPI - Endocrine Endocrine IM: Present: as per HPI - Constitutional Vitals: Temp Pulse Resp BP Pulse Ox 97.8 F 70 16 120/62 97 11/14/16 10:59 11/14/16 10:59 11/14/16 10:59 11/14/16 10:59 11/14/16 10:59 General appearance: Present: cooperative, A&O X 3, no acute distress, answers questions appropriately - Head Head exam: Present: atraumatic, normocephalic - Eye Eye exam: Present: normal appearance, sclera anicteric - ENT ENT exam: Present: mucous membranes dry - Neck Neck exam general surgery: Present: normal inspection, trachea midline - Respiratory Respiratory exam: Present: CTAB. Absent: rales, rhonchi, wheezes - Cardiovascular Cardiovascular exam: Present: RRR, +S1, +S2 - GI/Abdominal GI/Abdominal exam: Present: soft, no peritoneal signs. Absent: distended, firm , guarding, tenderness - Rectal Rectal exam: Present: deferred - Extremities Exam Extremities exam: Present: warm - Neurological Exam Neurological exam: Present: no focal deficits - Psychiatric Psychiatric exam: Present: normal affect, normal mood - Skin Skin exam: Present: dry, intact, normal color, warm Results - Labs CBC & Chem 7: 11/14/16 03:17 11/14/16 03:17 Labs: Last Result Calcium 9.4 mg/dL (8.6-10.8) 11/14/16 03:17 Troponin I 0.03 ng/mL (0-0.03) 11/14/16 12:02 Triglycerides 104 mg/dL (< 150) 11/14/16 12:02 Entire Visit Hgb 13.1 g/dL (12.9-16.9) 11/14/16 03:17 Hct 41.3 % (37.5-50.1) 11/14/16 03:17 Total Bilirubin 0.2 mg/dL (0.2-1.2) 11/14/16 03:17 AST 31 Units/L (5-34) 11/14/16 03:17 ALT 19 Units/L (0-55) 11/14/16 03:17 Amylase 70 Units/L (25-125) 11/14/16 03:17 Lipase 21 Units/L (8-78) 11/14/16 03:17 Consult Discharge Plan - Plan Referrals: Akilah Armstrong CNP [Partnered Physician] - 11/20/16 1:25 pm <Refugio Chi - Last Filed: 11/14/16 18:18> Date of Encounter: 11/14/16 Time of Encounter: 17:00 - Time Spent With Patient Total time spent is greater than 50% in coordination of care (as documented) at patient's floor/unit and/or counseling patient: GI History of Present Illness - Data of Consult Requesting Physician: Cynthia Horvath MD - Consult Narrative History of present illness: Mr. Mazariegos is a 76 year old male - Constitutional Vitals: Temp Pulse Resp BP Pulse Ox 98.2 F 73 16 94/55 96 11/14/16 15:34 11/14/16 15:34 11/14/16 15:34 11/14/16 15:34 11/14/16 15:34 Results - Labs CBC & Chem 7: 11/14/16 03:17 11/14/16 03:17 Labs: Last Result Calcium 9.4 mg/dL (8.6-10.8) 11/14/16 03:17 Troponin I 0.03 ng/mL (0-0.03) 11/14/16 12:02 Triglycerides 104 mg/dL (< 150) 11/14/16 12:02 Entire Visit Hgb 13.1 g/dL (12.9-16.9) 11/14/16 03:17 Hct 41.3 % (37.5-50.1) 11/14/16 03:17 Total Bilirubin 0.2 mg/dL (0.2-1.2) 11/14/16 03:17 AST 31 Units/L (5-34) 11/14/16 03:17 ALT 19 Units/L (0-55) 11/14/16 03:17 Amylase 70 Units/L (25-125) 11/14/16 03:17 Lipase 21 Units/L (8-78) 11/14/16 03:17 - Attending Attestation I examined this patient and my medical decision-making was reviewed with the MANAGER CONCRETE/PA/Advanced Practice Nurse/Resident Physician. I agree with the documented findings, disposition and treatment plan as described except to the extent set forth below.
--- NOTE | 2016-11-14 17:46 | Electrocardiograph Report ---
[address] [address] Test Date: 2016-11-14 Pat Name: Gonzales Mazariegos Department: 105 Room: 2A24 Gender: M Documentation Clerk: [id number] : 1940 Requested By: Cynthia Horvath Order Number: [id number] Reading MD: Nela Underwood Measurements Intervals [place] Rate: 88 P: 56 FL: 178 QRS: -48 QRSD: 117 T: 74 QT: 356 QTc: 401 Interpretive Statements SINUS RHYTHM WITH OCCASIONAL SUPRAVENTRICULAR PREMATURE COMPLEXES INCOMPLETE RIGHT BUNDLE BRANCH BLOCK LEFT ANTERIOR FASCICULAR BLOCK VOLTAGE CRITERIA FOR LVH Electronically Signed On 11-14-2016 17:45:03 EDT by Nela Underwood
--- NOTE | 2016-11-14 17:48 | Electrocardiograph Report ---
[address] [place], [place] [address] Test Date: 2016-11-14 Pat Name: Gonzales Mazariegos Department: 105 Room: 2A24 Gender: M Mitten Stitcher: SHANNAN : 1940 Requested By: Cynthia Horvath Order Number: [id number] Reading MD: Nela Underwood Measurements Intervals [place] Rate: 96 P: 68 VA: 186 QRS: -42 QRSD: 122 T: 35 QT: 359 QTc: 412 Interpretive Statements SINUS RHYTHM WITH FREQUENT ECTOPIC PREMATURE COMPLEXES LEFT AXIS DEVIATION INTRAVENTRICULAR CONDUCTION DELAY VOLTAGE CRITERIA FOR LVH ST DEVIATION AND MODERATE T-WAVE ABNORMALITY, CONSIDER ANTERIOR ISCHEMIA Electronically Signed On 11-14-2016 17:46:39 EDT by Nela Underwood
[2016-11-14] MEDS ORDERED: Budesonide/Formoterol 160/4.5 MDI IH SCH (21:00)
[2016-11-15] MEDS: 0.9 % Sodium Chloride 1,000 ML IVC SCH (00:43)
[2016-11-15] MEDS: *HR* Morphine 2 MG/ML SYRINGE IVP PRN (01:05)
[2016-11-15] MEDS ORDERED: *HR* Morphine 2 MG/ML SYRINGE IVP PRN (03:15)
[2016-11-15] MEDS ORDERED: *HR* HYDROmorphone (PF) 1 MG/ML SYRINGE IVP PRN (03:18)
[2016-11-15] MEDS: Pantoprazole 40 MG VIAL IVP SCH (05:45)
[2016-11-15 05:51] LABS: Basophils % 0.3 %; Eosinophils # 0.1 K/mcL (0.0-0.6); Eosinophils % 1.2 %; Hematocrit 35.7 % (37.5-50.1); Immature Granulocytes % 0.4 % (0-4); Lymphocytes # 0.5 K/mcL (0.6-4.6); Lymphocytes % 6.3 %; Mean Corpuscular HGB Conc 31.1 g/dL (31.6-35.5); Mean Corpuscular Hemoglobin 25.8 pg (28.0-33.3); Mean Platelet Volume 10.1 fL (9.4-12.4); Monocytes # 0.2 K/mcL (0.0-1.3); Monocytes % 3.1 %; Neutrophils # 6.5 K/mcL (1.6-8.9); Platelet Count 172 K/mcL (140-400); Red Cell Distribution Width 17.2 % (11.5-14.5); Segmented Neutrophils % 88.7 %
[2016-11-15 06:03] LABS: Potassium 3.5 mEq/L (3.5-4.5)
[2016-11-15 06:06] LABS: Calcium 7.6 mg/dL (8.6-10.8)
[2016-11-15 06:10] LABS: Hemoglobin 11.1 g/dL (12.9-16.9)
[2016-11-15] MEDS: Sucralfate 1 GM TABLET PO SCH ×2 (07:29→11:19)
[2016-11-15] MEDS: Finasteride 5 MG TABLET PO SCH (07:30)
[2016-11-15] MEDS ORDERED: hydroCHLOROthiazide 25 MG TABLET PO SCH (09:00)
[2016-11-15] MEDS ORDERED: Isosorbide MONOnitrate (24 HR) 60 MG TAB.ER.24H PO SCH (09:00)
[2016-11-15] MEDS ORDERED: Aspirin Enteric Coated 81 MG Tablet PO SCH (09:00)
[2016-11-15] MEDS ORDERED: ACITRETIN 10 MG PO SCH (09:00)
[2016-11-15] MEDS ORDERED: Budesonide/Formoterol 160/4.5 MDI IH SCH (10:00)
--- NOTE | 2016-11-15 10:21 | Anesthesia Evaluation PreOp ---
Date of Encounter: 11/15/16 Time of Encounter: 10:19 - Past History Planned Operation: egd Cardiac History: HTN, Hyperlipidemia, Other (echo ef 65, nl rv, no valve dz....TnI elevated, trend neg, ckd) Pulmonary History: Asthma, COPD, MICHAEL Dx [employer] History: Denies Any Significant HX Other Medical History: Renal (ckd stage III), Thyroid, GERD (pud, nsaid use) Anesthesia History: No Prior Anesthetic Complications, Past Anesthesia (shoulder ) Alcohol Use: none Drug use: none Medications and Allergies Acitretin [Soriatane] 10 mg PO DAILY 07/24/16 [History] Atorvastatin [Lipitor] 40 mg PO HS 07/24/16 [History] Ciclopirox [Loprox] 120 ml TP 3XW 07/24/16 [History] Ergocalciferol (VITAMIN D2) [Vitamin D2] 50,000 unit PO FLORES 07/24/16 [History] Finasteride [Proscar] 5 mg PO DAILY 07/24/16 [History] FluocinoNIDE 0.05% CRM [Lidex] 1 appl TP 3XW 07/24/16 [History] Fluticasone/Salmeterol [Advair Hfa 230-21 Mcg Inhaler] 2 puff IH BID 07/24/16 [ History] Ipratropium/Albuterol Neb [Duoneb] 3 ml IH Q6HR PRN 07/24/16 [History] Isosorbide MONOnitrate (24 HR) [Imdur] 60 mg PO DAILY 07/24/16 [History] Levothyroxine [Synthroid] 50 mcg PO 0630 07/24/16 [History] NIFEdipine XL (24 HR) [Procardia XL] 60 mg PO DAILY 07/24/16 [History] Nitroglycerin [Nitrostat] 0.4 mg SL Q5M PRN 07/24/16 [History] Omeprazole [PriLOSEC] 20 mg PO DAILY 07/24/16 [History] Potassium Chloride [Klor-Con] 20 meq PO DAILY 07/24/16 [History] hydroCHLOROthiazide [Hydrochlorothiazide] 25 mg PO DAILY 07/24/16 [History] Aspirin [Lo-Dose Aspirin EC] 81 mg PO DAILY 11/14/16 [History] Calcium Carbonate [Calcium] 500 mg PO DAILY 11/14/16 [History] Fenofibrate Nanocrystallized [Tricor] 145 mg PO DAILY 11/14/16 [History] Ibuprofen [Motrin] 200 mg PO Q6HR PRN 11/14/16 [History] Magnesium Oxide [Magnesium] 400 mg PO BID 11/14/16 [History] Meloxicam [Mobic] 15 mg PO DAILY 11/14/16 [History] Metoprolol XL (24 HR) Succ [Toprol XL] 25 mg PO DAILY 11/14/16 [History] OxyCODONE Immed Rel [Roxicodone 5 MG] 5 mg PO Q6HR PRN 11/14/16 [History] Sucralfate [Carafate] 1 gm PO QIDAC 11/14/16 [History] Allergies No Known Allergies Allergy (Verified 11/14/16 03:04) - Meds/Allergy Pre-op Review Medications Reviewed: Yes Allergies Reviewed: Yes Beta Blockers on Current Med List: Yes If Beta Blockers taken, Date/Time (Last Dose taken): metoprolol 11/14 19:59 Anesthesia Results - Labs 11/15/16 04:35 11/15/16 04:35 - Imaging EKG: report reviewed (sr, lad, ivcd) Anesthesia Exam Vital Signs/O2 Sat/Glucose, Most Current Temp Pulse Resp BP Pulse Ox 11/15/16 10:10 983.6 F H 71 18 162/80 97 11/15/16 08:27 16 99 11/15/16 07:16 97.6 F 61 16 119/61 99 Height: 1.75 Weight: 72 NPO (# of Hours): >8 - HEENT Pupil (Motor): Pupils equal, EOMI Mallampati: III Teeth: Poor dentition Oral Opening: Greater than 3 (good underbite) - [employer] LOC: Oriented [employer] Motor: Normal RUE, Normal LUE, Normal RLE, Normal LLE, Normal Face [employer] Sensory: Normal: RUE, LUE, RLE, LLE, Face - Cardiac Rhythm: Regular Murmur: None - Pulmonary Breath Sounds: bilateral Clear Respiratory Effort: Symmetrical Anesthesia Assess/Plan ASA Score: 3 Modified Beck Scale for Level of Consciousness: Cooperative, oriented, and tranquil Anesthetic Plan: MAC Monitoring Plan: Standard Monitors Recovery Plan: Other
--- NOTE | 2016-11-15 10:53 | Event Note ---
Date of Encounter: 11/15/16 Time of Encounter: 10:00 Patient had EGD done today which was unremarkable. He will be scheduled for colonoscopy as an outpatient. We will start him on low-dose Bentyl 10 mg 2-3 times a day for his abdominal pain as needed
[2016-11-15 11:27] VITALS: BP 101/51
[2016-11-15] MEDS ORDERED: *HR* OxyCODONE Immed Rel 5 MG TABLET PO PRN (11:53)
[2016-11-15] MEDS ORDERED: Ipratropium/Albuterol Neb 3 ML IH PRN (11:55)
--- NOTE | 2016-11-15 14:31 | Discharge Summary ---
Date of Encounter: 11/15/16 Time of Encounter: 14:28 - Discharge Diagnosis (1) Abdominal pain Priority: Primary Status: Resolved Qualifiers: Abdominal location: epigastric Qualified Code(s): R10.13 - Epigastric pain (2) CKD (chronic kidney disease) stage 3, GFR 30-59 ml/min Priority: Secondary Status: Chronic (3) CAD (coronary artery disease) Priority: Secondary Status: Chronic Qualifiers: Coronary Disease-Associated Artery/Lesion type: [place] artery [place] vs. transplanted heart: unspecified whether [place] or transplanted heart Associated angina: angina presence unspecified Qualified Code(s): I25.10 - Atherosclerotic heart disease of [place] coronary artery without angina pectoris (4) MICHAEL (obstructive sleep apnea) Priority: Secondary Status: Chronic (5) Asthma Priority: Secondary Status: Chronic Qualifiers: Asthma severity: unspecified severity Asthma complication type: uncomplicated Qualified Code(s): J45.909 - Unspecified asthma, uncomplicated (6) HTN (hypertension) Priority: Secondary Status: Chronic Qualifiers: Hypertension type: essential hypertension Qualified Code(s): I10 - Essential (primary) hypertension (7) GERD (gastroesophageal reflux disease) Priority: Secondary Status: Chronic Qualifiers: Esophagitis presence: without esophagitis Qualified Code(s): K21.9 - Gastro -esophageal reflux disease without esophagitis (8) Elevated troponin Priority: Secondary Status: Resolved - Discharge Medications Prescriptions: Dicyclomine [Bentyl] 10 mg PO TID PRN #60 capsule PRN Reason: Pain Home Medications: Acitretin [Soriatane] 10 mg PO DAILY 07/24/16 [History] Atorvastatin [Lipitor] 40 mg PO HS 07/24/16 [History] Ciclopirox [Loprox] 120 ml TP 3XW 07/24/16 [History] Ergocalciferol (VITAMIN D2) [Vitamin D2] 50,000 unit PO FLORES 07/24/16 [History] Finasteride [Proscar] 5 mg PO DAILY 07/24/16 [History] FluocinoNIDE 0.05% CRM [Lidex] 1 appl TP 3XW 07/24/16 [History] Fluticasone/Salmeterol [Advair Hfa 230-21 Mcg Inhaler] 2 puff IH BID 07/24/16 [ History] Ipratropium/Albuterol Neb [Duoneb] 3 ml IH Q6HR PRN 07/24/16 [History] Isosorbide MONOnitrate (24 HR) [Imdur] 60 mg PO DAILY 07/24/16 [History] Levothyroxine [Synthroid] 50 mcg PO 0630 07/24/16 [History] NIFEdipine XL (24 HR) [Procardia XL] 60 mg PO DAILY 07/24/16 [History] Nitroglycerin [Nitrostat] 0.4 mg SL Q5M PRN 07/24/16 [History] Potassium Chloride [Klor-Con] 20 meq PO DAILY 07/24/16 [History] hydroCHLOROthiazide [Hydrochlorothiazide] 25 mg PO DAILY 07/24/16 [History] Aspirin [Lo-Dose Aspirin EC] 81 mg PO DAILY 11/14/16 [History] Calcium Carbonate [Calcium] 500 mg PO DAILY 11/14/16 [History] Fenofibrate Nanocrystallized [Tricor] 145 mg PO DAILY 11/14/16 [History] Ibuprofen [Motrin] 200 mg PO Q6HR PRN 11/14/16 [History] Magnesium Oxide [Magnesium] 400 mg PO BID 11/14/16 [History] Meloxicam [Mobic] 15 mg PO DAILY 11/14/16 [History] Metoprolol XL (24 HR) Succ [Toprol Xl] 25 mg PO DAILY 11/14/16 [History] OxyCODONE Immed Rel [Roxicodone 5 MG] 5 mg PO Q6HR PRN 11/14/16 [History] Sucralfate [Carafate] 1 gm PO QIDAC 11/14/16 [History] Dicyclomine [Bentyl] 10 mg PO TID PRN #60 capsule 11/15/16 [Rx] Omeprazole [PriLOSEC] 40 mg PO DAILY@0730 capsule. 11/15/16 [Rx] Allergies/Adverse Reactions: Allergies No Known Allergies Allergy (Verified 11/14/16 03:04) Procedures/tests Complete & Pending: Procedures Performed prior 72 hours Category Date Time Status ECG 12 lead ECG [ECG] Routine Y 11/14/16 03:14 Completed ECG 12 lead ECG [ECG] Routine Y 11/14/16 05:46 Completed EV echocardiogram Routine Y 11/14/16 08:00 Completed Date of admission: 11/14/16 06:54 Primary care physician: Noel Petty Consults: 11/14/16 09:00 Consult to Gastroenterology [CONS] Stat Consulting Provider: [facility] [place] Reason for Consult: Severe dyspepsia, hx of Gastric ulcer, taking NSAIDs, Melena. Call Completed: Yes Discharging clinician: Christian Milian Anticipated date of discharge: 11/15/16 - Patient Status Disposition: Home, Self-Care Condition: Good Functional capacity at discharge: independent ambulation Overall status at discharge: patient is progressing back to baseline - Discharge Instructions Follow Up With: Akilah Armstrong CNP [Partnered Physician] - 11/20/16 1:25 pm - Diet and Activity Activity: increase activity as tolerated Diet: advance to your usual diet Hospital course: Mr. Mazariegos is a 76 year old male with hx of CAD presented to ED with epigastric discomfort. He was evaluated and due to his prior medical history he was placed in observation. Mr. Mazariegos was placed in observation with dyspepsia. He was started on cardiac rule out MA meds as well. His troponin was static and he was seen by GI service. On 11/15 he underwent EGD which was unremarkable. He was started on Bentyl as needed. In the afternoon of 11/15 he was tolerating a diet. He was afebrile with stable vitals and felt ready for discharge home. - Time Spent with Patient Total time spent providing and/or coordinating discharge services: 35min - Constitutional Vitals: Temp Pulse Resp BP Pulse Ox 97.9 F 65 15 101/51 99 11/15/16 11:26 11/15/16 11:26 11/15/16 11:26 11/15/16 11:26 11/15/16 11:26 General appearance: Present: A&O X 3, pleasant, answers questions appropriately - Head Head exam: Present: normocephalic - Eye Eye exam: Present: EOMI, conjuntiva pink - ENT ENT exam: Present: mucous membranes moist - Respiratory Respiratory exam: Present: decreased breath sounds, CTAB. Absent: rhonchi, wheezes - Cardiovascular Cardiovascular exam: Present: RRR. Absent: tachycardia - GI/Abdominal GI/Abdominal exam: Present: soft. Absent: tenderness - Extremities Exam Extremities exam: Present: warm. Absent: tenderness - Neurological Exam Neurological exam: Present: alert, oriented X3, no focal deficits - Psychiatric Psychiatric exam: Present: normal affect, normal mood
[2016-11-15] MEDS ORDERED: Lidocaine -MPF 2% 5 ML VIAL INFILT ONE (16:14)
[2016-11-15] MEDS ORDERED: *HR* Propofol 200 MG/20 ML VIAL IVP ONE (16:14)
== END 2016-11-15 16:15 | disposition home or self-care (01) ==
LOC: 2ANU 02:59 → EMEROO 02:59 → SUATTDRO 06:54 → 2ANU 07:31
PROVIDERS: ADMIT Internal Medicine; ATTEND Internal Medicine
PROC: ENDOEBX (2016-11-15 10:15)

== ENCOUNTER 2016-12-06 13:26 | Inpatient (IN) ==
--- NOTE | 2016-12-06 13:49 | Emergency Department Note ---
Disposition Clinical Impression: Atrial flutter with rapid ventricular response Chest pain Qualifiers: Chest pain type: other chest pain Qualified Code(s): R07.89 - Other chest pain Disposition: Admitted As Inpatient Condition: Fair Time of Disposition: 14:56 Chest Pain HPI - General Chief Complaint: ED Arrhythmia/Palpitations Stated Complaint: chest pain, a-flutter Source: patient, family Limitations: no limitations Vital Signs Reviewed: Yes Nursing Notes Reviewed: Yes - History of Present Illness HPI Narrative: 76-year-old who comes in complaining of pain in his abdomen that starts in his suprapubic region and then it goes up into his chest. He states he's had this for about a month and has had a several evaluations including endoscopy that showed some rawness in his stomach according to the patient. He was started on omeprazole that seemed to help. Today he went to his doctor and was found to have a a flutter with a rapid ventricular response. He was sent here for chest pain but when you talk to the pain starts in the suprapubic region and over 10 minutes goes up into his chest and then it resolves. Had a recent echo that showed an EF of 65% but no recent stress testing the last one I see in the system is from 2014 which showed no acute changes. Pt complaint: chest pain Onset (ago): Just DIRECT[employer] APPOINTMENT Duration: intermittent Onset: during rest Pain Location: other (Starts in the lower abdomen and then comes up into his chest.) Severity scale (1-10): 2 Quality: tightness, aching Pain Radiation: none Improves with: nothing Worsens with: nothing Associated symptoms: Denies: nausea, vomiting Treatments prior to arrival chest pain: none - Related Data Home Medications Medication Instructions Recorded Confirmed Acitretin [Soriatane] 10 mg PO DAILY 07/24/16 11/14/16 Atorvastatin [Lipitor] 40 mg PO HS 07/24/16 11/14/16 Ciclopirox [Loprox] 120 ml TP 3XW 07/24/16 11/14/16 Ergocalciferol (VITAMIN D2) 50,000 unit PO FLORES 07/24/16 11/14/16 [Vitamin D2] Finasteride [Proscar] 5 mg PO DAILY 07/24/16 11/14/16 FluocinoNIDE 0.05% CRM [Lidex] 1 appl TP 3XW 07/24/16 11/14/16 Fluticasone/Salmeterol [Advair Hfa 2 puff IH BID 07/24/16 11/14/16 230-21 Mcg Inhaler] Ipratropium/Albuterol Neb [Duoneb] 3 ml IH Q6HR PRN 07/24/16 11/14/16 Isosorbide MONOnitrate (24 HR) 60 mg PO DAILY 07/24/16 11/14/16 [Imdur] Levothyroxine [Synthroid] [place] [address]/24/16 11/14/16 NIFEdipine XL (24 HR) [Procardia 60 mg PO DAILY 07/24/16 11/14/16 XL] Nitroglycerin [Nitrostat] 0.4 mg SL Q5M PRN 07/24/16 11/14/16 Potassium Chloride [Klor-Con] 20 meq PO DAILY 07/24/16 11/14/16 hydroCHLOROthiazide 25 mg PO DAILY 07/24/16 11/14/16 [Hydrochlorothiazide] Aspirin [Lo-Dose Aspirin EC] 81 mg PO DAILY 11/14/16 11/14/16 Calcium Carbonate [Calcium] 500 mg PO DAILY 11/14/16 11/14/16 Fenofibrate Nanocrystallized 145 mg PO DAILY 11/14/16 11/14/16 [Tricor] Ibuprofen [Motrin] 200 mg PO Q6HR PRN 11/14/16 11/14/16 Magnesium Oxide [Magnesium] 400 mg PO BID 11/14/16 11/14/16 Meloxicam [Mobic] 15 mg PO DAILY 11/14/16 11/14/16 Metoprolol XL (24 HR) Succ [Toprol 25 mg PO DAILY 11/14/16 11/14/16 Xl] OxyCODONE Immed Rel [Roxicodone 5 5 mg PO Q6HR PRN 11/14/16 11/14/16 MG] Sucralfate [Carafate] 1 gm PO QIDAC 11/14/16 11/14/16 Previous Rx's Medication Instructions Recorded Dicyclomine [Bentyl] 10 mg PO TID PRN #60 capsule 11/15/16 Omeprazole [PriLOSEC] 40 mg PO DAILY@0730 capsule. 11/15/16 Allergies Allergy/AdvReac Type Severity Reaction Status Date / Time No Known Allergies Allergy Verified 11/14/16 03:04 All systems ED: reviewed and negative except as stated. Constitutional: Denies: fever, chills, weakness, weight change Eyes: Denies: eye pain, eye discharge, vision change ENT ED: Denies: ear pain, throat pain, dental pain, hearing loss, epistaxis, congestion, dysphagia Cardiovascular: Reports: chest pain. Denies: palpitations, dyspnea on exertion , edema, syncope Respiratory: Denies: cough, dyspnea, wheezes, hemoptysis, stridor Gastrointestinal: Reports: abdominal pain. Denies: nausea, vomiting, diarrhea, constipation, hematemesis, melena, hematochezia Genitourinary: Denies: urgency, dysuria, frequency, hematuria Musculoskeletal: Denies: back pain, neck pain, arthralgia, myalgia Integumentary: Denies: rash, abrasion, lesions Neurological: Denies: headache, weakness, numbness, paresthesias, confusion, abnormal gait, vertigo Psychiatric: Denies: anxiety, depression, suicidal thoughts, homicidal thoughts , auditory hallucinations, visual hallucinations Endocrine: Denies: fatigue Hematological/Lymphatic: Denies: easy bleeding, easy bruising Allergic/Immunologic: Denies: facial swelling, urticaria Chest Pain PMH - Past Medical History Medical history: Reports: arthritis, cancer, GERD, hyperlipidemia, hypertension Surgical history: Reports: orthopedic, other Psychiatric history: Reports: no psych history - Social History Smoking Status: Never smoker Alcohol use: Reports: none Drug use: Reports: none Physical Exam - General Limitations: no limitations General appearance: alert - Head Head exam: atraumatic, normocephalic, normal inspection - Eye Eye exam: Present: normal appearance, PERRL, EOMI - ENT ENT exam: normal exam, normal oropharynx, mucous membranes moist - Neck Neck exam: Present: normal inspection, full ROM, trachea midline - Chest Chest inspection: Present: normal inspection, symmetric chest wall rise - Respiratory Respiratory exam: Present: normal lung sounds bilaterally - Cardiovascular Cardiovascular exam: Present: tachycardia - Abdominal Exam Abdominal exam: Present: soft, Non-Tender. Absent: tenderness, distention, guarding, rebound, rigidity - Extremities Exam Extremities exam: Present: normal inspection, full ROM. Absent: tenderness, pedal edema - Expanded Lower Extremity Exam Neurovascular/Tendon exam: Absent: motor deficit, sensory deficit, tendon deficit Gait: not tested/not observed - Back Exam Back exam: Present: normal inspection, full ROM. Absent: tenderness - Neurological Exam Neurological exam: Present: alert, oriented X3 - Psychiatric Psychiatric exam: Present: normal affect, normal mood - Skin Skin exam: Present: warm, dry, intact, normal color Course - Reevaluation(s) Reevaluation #1: 76-year-old who comes in complaining of some chest pain along with pain is had about a month that starts in his lower abdomen does up into his epigastrium. A workup of his abdominal pain is included a PA and also a CT of the abdomen which is negative. He was found by his family doctor today to be in a flutter with rapid ventricular response. Workup here included a elevated troponin of 0.16. Time: 14:52 Reevaluation #2: Dr Gonzales here evaluating the patient. Time: 15:28 Reevaluation #3: Magnesium came back at less than 0.7, discussed with Dr. Gonzales, recommends 4 g of magnesium. Time: 15:48 - Consultations Consultation #1: Discussed with Dr. Gonzales, recommends heparin and Cardizem and admission. I did review patient's CT scan of his abdomen has no issues there. Time: 14:51 Consultation #2: Discussed with Dr. Horvath, admit. Time: 15:28 Vital Signs Temperature 98.9 F 12/06/16 13:31 Pulse Rate 143 12/06/16 13:31 Respiratory Rate 16 12/06/16 13:31 Blood Pressure 149/98 12/06/16 13:31 O2 Sat by Pulse Oximetry 93 12/06/16 13:31 Temperature 98.9 F 12/06/16 13:31 Pulse Rate 146 12/06/16 14:25 Respiratory Rate 16 12/06/16 14:25 Blood Pressure 129/104 12/06/16 14:25 O2 Sat by Pulse Oximetry 99 12/06/16 14:25 Oxygen Delivery Oxygen Delivery Room Air Chest Pain - Lab Data Lab results reviewed: Yes I reviewed the patient's lab results. Result diagrams: 12/06/16 13:45 12/06/16 13:45 Lab Results 12/06/16 12/06/16 12/06/16 Range/Units 13:45 13:45 13:45 WBC 8.7 (4.3-11.1) K/mcL RBC 4.82 (4.19-5.50) M/mcL Hgb 12.5 L (12.9-16.9) g/dL Hct 39.4 (37.5-50.1) % MCV 81.7 L (83.0-100.0) fL MCH 25.9 L (28.0-33.3) pg MCHC 31.7 (31.6-35.5) g/dL RDW 17.0 H (11.5-14.5) % Plt Count 237 (140-400) K/mcL MPV 10.1 (9.4-12.4) fL Immature Gran % 0.3 (0-4) % Seg Neutrophils % 65.9 % Lymphocytes % 24.8 % Monocytes % 8.5 % Eosinophils % 0.2 % Basophils % 0.3 % Neutrophils # 5.7 (1.6-8.9) K/mcL Lymphocytes # 2.2 (0.6-4.6) K/mcL Monocytes # 0.7 (0.0-1.3) K/mcL Eosinophils # 0.0 (0.0-0.6) K/mcL Basophils # 0.0 (0.0-0.2) K/mcL PT 12.4 H (9.4-12.1) Seconds INR 1.1 APTT 24.7 L (26.0-36.0) Seconds Sodium 142 (136-145) mEq/L Potassium 3.1 L (3.5-4.5) mEq/L Chloride 109 (98-109) mEq/L Carbon Dioxide 24 (19-29) mEq/L BUN 34 H (8-26) mg/dL Creatinine 1.81 H (0.72-1.25) mg/dL Est GFR ( Amer) 44 L (> 60) Est GFR (Non-Af Amer) 36 L (> 60) BUN/Creatinine Ratio 19 (6-26) Glucose 77 (70-99) mg/dL Calculated Osmolality 300 (280-300) Calcium 8.7 (8.6-10.8) mg/dL Magnesium < 0.7 L (1.6-2.6) mg/dL Troponin I (0-0.03) ng/mL 12/06/16 Range/Units 13:45 WBC (4.3-11.1) K/mcL RBC (4.19-5.50) M/mcL Hgb (12.9-16.9) g/dL Hct (37.5-50.1) % MCV (83.0-100.0) fL MCH (28.0-33.3) pg MCHC (31.6-35.5) g/dL RDW (11.5-14.5) % Plt Count (140-400) K/mcL MPV (9.4-12.4) fL Immature Gran % (0-4) % Seg Neutrophils % % Lymphocytes % % Monocytes % % Eosinophils % % Basophils % % Neutrophils # (1.6-8.9) K/mcL Lymphocytes # (0.6-4.6) K/mcL Monocytes # (0.0-1.3) K/mcL Eosinophils # (0.0-0.6) K/mcL Basophils # (0.0-0.2) K/mcL PT (9.4-12.1) Seconds INR APTT (26.0-36.0) Seconds Sodium (136-145) mEq/L Potassium (3.5-4.5) mEq/L Chloride (98-109) mEq/L Carbon Dioxide (19-29) mEq/L BUN (8-26) mg/dL Creatinine (0.72-1.25) mg/dL Est GFR ( Amer) (> 60) Est GFR (Non-Af Amer) (> 60) BUN/Creatinine Ratio (6-26) Glucose (70-99) mg/dL Calculated Osmolality (280-300) Calcium (8.6-10.8) mg/dL Magnesium (1.6-2.6) mg/dL Troponin I 0.16 H* (0-0.03) ng/mL - Radiology Data Radiology results reviewed: Yes I reviewed the patient's radiology results. Chest X-Ray 12/06/16 13:38 IMPRESSION: Stable borderline cardiomegaly. Minimal pulmonary vascular congestion. D/ / Abhishek Royal MD / Abhishek Royal MD Interpreting Provider: Abhishek Royal MD Heart Score - Score History: Moderately Suspicious EKG: Non Specific repolarisation Disturbance Age: Greater than 65 Risk Factors: Equal/Greater than 3 risk factor or history of atherosclerotic disease Troponin: 1-3x normal limit HEART Score Total: 7 Critical Care Time Critical Care Time: Yes Total Critical Care Time: 30 Attestation: The high probability of a clinically significant, sudden or life threatening deterioration of the [cardiovascular] system(s) required my full and direct attention, intervention and personal management. The aggregate critical care time was [30] minutes. This time is in addition to time spent performing reported procedures but includes the following: [x] Data Review and interpretation [x] Patient assessment and monitoring of vital signs [x] Documentation [x] Medication orders and management
[2016-12-06 13:57] LABS: Basophils % 0.3 %; Eosinophils % 0.2 %; Hematocrit 39.4 % (37.5-50.1); Hemoglobin 12.5 g/dL (12.9-16.9); Immature Granulocytes % 0.3 % (0-4); Lymphocytes # 2.2 K/mcL (0.6-4.6); Lymphocytes % 24.8 %; Mean Corpuscular HGB Conc 31.7 g/dL (31.6-35.5); Mean Corpuscular Hemoglobin 25.9 pg (28.0-33.3); Mean Corpuscular Volume 81.7 fL (83.0-100.0); Mean Platelet Volume 10.1 fL (9.4-12.4); Monocytes # 0.7 K/mcL (0.0-1.3); Monocytes % 8.5 %; Neutrophils # 5.7 K/mcL (1.6-8.9); Platelet Count 237 K/mcL (140-400); Red Blood Count 4.82 M/mcL (4.19-5.50); Segmented Neutrophils % 65.9 %
[2016-12-06 14:03] LABS: INR 1.1; Prothrombin Time 12.4 Seconds (9.4-12.1)
[2016-12-06 14:06] LABS: Activated Partial Thrombo Time 24.7 Seconds (26.0-36.0)
[2016-12-06 14:10] LABS: BUN/Creatinine Ratio 19 (6-26); Blood Urea Nitrogen 34 mg/dL (8-26); Calcium 8.7 mg/dL (8.6-10.8); Carbon Dioxide 24 mEq/L (19-29); Chloride 109 mEq/L (98-109); Glucose 77 mg/dL (70-99); Osmolality,Calculated 300 (280-300); Potassium 3.1 mEq/L (3.5-4.5); Sodium 142 mEq/L (136-145); eGFR For African Americans 44 (> 60); eGFR For Non-African Americans 36 (> 60)
--- NOTE | 2016-12-06 15:15 | Cardiology Consult Note ---
Date of Encounter: 12/06/16 Time of Encounter: 14:45 Assessment and Plan (1) Atrial flutter with rapid ventricular response Current Visit: Yes Status: Acute Per cardiology: -New onset atrial flutter with RVR. -HRs currently 140s. -Cardizem drip has been ordered, however not started yet. -CHads 2vasc score 4 (age, HTN, vascular disease). Recommend local [employer] anticoagulation. Per discussion with ER physician, patient will be started on heparin drip. Will determine mcc anticoagulation pending clinical coarse. -K 3.1. -Agree with cardizem drip and heparin drip. -Will replace potassium. -Will check magnesium and TSH. -Will continue to monitor BP and HR. -Will start beta violet. (2) Elevated troponin Current Visit: No Status: Acute Per cardiology: -Troponin 0.16. -ECG with atrial flutter. -Patient being started on heparin drip. -Admits to pain, however states starts in abdomen and travels to chest. States pain is relieved by omeprazole. -Echo 11/14/16 with LVEF 65%, mild concentric LVH, mild diastolic dysufnction. -Recommend trending troponins. -Will continue to monitor. (3) CAD (coronary artery disease) Current Visit: No Status: Chronic Per cardiology: -Known CAD with [facility] 10/2013 with 50% mid LAD diffusely diseased, 30% proximal circumflex, 50% mid circ small vessel, 50% OM1, 60% proximal RCA with FFR 0.95, 40% distal RCA, 40% PDA, 40% PL. -On asa at home. -Intolerant to statins. -Will continue to monitor. -Will start beta violet. (4) Chest pain Current Visit: Yes Status: Acute Per cardiology: -Patient admits to pain that starts in abdomen and travels to chest. -Pateint states he has had this pain intermittently for 2 months. -Pateint states pain is relieved by omeprazole. -Will trend troponins and continue to monitor. Discussion w patient/family: The assessment and plan as outlined above was discussed with the patient and/or family members who expressed understanding and agreement. All questions were answered. Thank you for involving us in the care of your patient. Please call with any questions. Discussed and reviewed with . History of Present Illness Consult date: 12/06/16 Requesting physician: Karthikeyan Shah Consult reason: a.flutter RVR Chief complaint: abdominal/chest pain History of present illness: Mr. Mazariegos is a 76 year old male with a relevant past medical history of CAD , HTN, hyperlipidemia, GERD, barretts esophagus, MICHAEL. Patient states he has been having intermittent abdominal pain that radiates to his chest for the past two months. Patient was recently admitted for this pain. Patient was at his PCPs office today when he was noted to be tachycardic. ECG was done at PCPs office and noted to be atrial flutter with RVR. Patient was sent to ER. Cardiology has been consulted for a.flutter. Patient denies palpitations/ fluttering. Patient admits to pain that starts in lower abdomen and radiates to his chest. Patient states omeprazole is the only thing that relieves pain. Patient states he has taken nitro for pain before with no relief. Patient denies aggervating factors. Patient denies bleeding or blood loss. Past Med Surg Social Fam HX - Past Medical History Attestation: Yes The following information was validated with the patient. Source: patient, old records reviewed, obtained from family Medical history: arthritis, cancer, GERD, hyperlipidemia, hypertension Psychiatric history: no psych history - Past Surgical History Surgical History: orthopedic, other - Social History Smoking Status: Never smoker Smokeless Tobacco Status: No Alcohol use: none Drug use: none - Family History Mother Living Status: Hx Family Cancer: Yes ("blood") Father Living Status: Hx Family Cardiac Disorders: Yes Medications and Allergies Acitretin [Soriatane] 10 mg PO DAILY 07/24/16 [History] Atorvastatin [Lipitor] 40 mg PO HS 07/24/16 [History] Ciclopirox [Loprox] 120 ml TP 3XW 07/24/16 [History] Ergocalciferol (VITAMIN D2) [Vitamin D2] 50,000 unit PO FLORES 07/24/16 [History] Finasteride [Proscar] 5 mg PO DAILY 07/24/16 [History] FluocinoNIDE 0.05% CRM [Lidex] 1 appl TP 3XW 07/24/16 [History] Fluticasone/Salmeterol [Advair Hfa 230-21 Mcg Inhaler] 2 puff IH BID 07/24/16 [ History] Ipratropium/Albuterol Neb [Duoneb] 3 ml IH Q6HR PRN 07/24/16 [History] Isosorbide MONOnitrate (24 HR) [Imdur] 60 mg PO DAILY 07/24/16 [History] Levothyroxine [Synthroid] 50 mcg PO 0630 07/24/16 [History] NIFEdipine XL (24 HR) [Procardia XL] 60 mg PO DAILY 07/24/16 [History] Nitroglycerin [Nitrostat] 0.4 mg SL Q5M PRN 07/24/16 [History] Potassium Chloride [Klor-Con] 20 meq PO DAILY 07/24/16 [History] hydroCHLOROthiazide [Hydrochlorothiazide] 25 mg PO DAILY 07/24/16 [History] Aspirin [Lo-Dose Aspirin EC] 81 mg PO DAILY 11/14/16 [History] Calcium Carbonate [Calcium] 500 mg PO DAILY 11/14/16 [History] Fenofibrate Nanocrystallized [Tricor] 145 mg PO DAILY 11/14/16 [History] Ibuprofen [Motrin] 200 mg PO Q6HR PRN 11/14/16 [History] Magnesium Oxide [Magnesium] 400 mg PO BID 11/14/16 [History] Meloxicam [Mobic] 15 mg PO DAILY 11/14/16 [History] Metoprolol XL (24 HR) Succ [Toprol Xl] 25 mg PO DAILY 11/14/16 [History] OxyCODONE Immed Rel [Roxicodone 5 MG] 5 mg PO Q6HR PRN 11/14/16 [History] Sucralfate [Carafate] 1 gm PO QIDAC 11/14/16 [History] Dicyclomine [Bentyl] 10 mg PO TID PRN #60 capsule 11/15/16 [Rx] Omeprazole [PriLOSEC] 40 mg PO DAILY@0730 capsule. 11/15/16 [Rx] Allergies No Known Allergies Allergy (Verified 11/14/16 03:04) All Systems Review: A 10-system review of systems was performed and is negative for pertinent findings except as documented above in the HPI. - Cardiovascular Cardiovascular: as per HPI - Gastrointestinal Gastrointestinal: abdominal pain Physical Examination Vital Signs, Last 4 Hours Temp Pulse Resp BP Pulse Ox 12/06/16 14:25 146 16 129/104 99 12/06/16 13:31 98.9 F 143 16 149/98 93 General: Conversant, No Apparent Distress HEENT: Atraumatic, Normocephaly, Mucus Membranes Moist Neck: No JVD, Normal carotid pulses Cardiac: Other (Irregularly, irregular. Tachycardic. ) Lungs: Normal Breath Sounds, No Wheeze, Rales, Rhonchi Neuro: Alert and responsive, No focal deficits noted Abdomen: Soft, Other (Abdomen tender to palpation. ) Skin: No rashes noted on visualized skin Musculoskeletal: No Chest Wall Tenderness Extremities: No Clubbing, No Cyanosis, No Edema, Normal Pulses Results 12/06/16 13:45 12/06/16 13:45 Lab Results Impressions Chest X-Ray 12/06/16 13:38 IMPRESSION: Stable borderline cardiomegaly. Minimal pulmonary vascular congestion. D/ / Abhishek Royal MD / Abhishek Royal MD Interpreting Provider: Abihshek Royal MD Active Medications Diltiazem HCl 125 mg/ Dextrose 125 mls @ 5 mls/hr IVC .Q24H THELMA; 5 MG/HR PRN Reason: Protocol Stop: 06/07/17 14:01 Laboratory Tests 11/14/16 11/15/16 12/06/16 03:17 04:35 13:45 Hgb 12.5 L Potassium Creatinine 1.90 H 2.13 H Troponin I 12/06/16 12/06/16 13:45 13:45 Hgb Potassium 3.1 L Creatinine 1.81 H Troponin I 0.16 H* - Imaging and Cardiology Chest Xray: report reviewed Echo: report reviewed Cardiac cath: report reviewed - EKG Interpretation EKG results cardiology: personally reviewed (ECG with atrial flutter with RVR, HR 145.) Consult Discharge Plan - Plan Referrals: Noel Petty DO [Primary Care Provider] -
[2016-12-06] MEDS ORDERED: *HR* Heparin 5,000 UNIT/ML VIAL IVP PRN ×3 (15:25→15:43)
[2016-12-06] MEDS ORDERED: *HR* Heparin 5,000 UNIT/ML VIAL IVP ONE (15:25)
[2016-12-06] MEDS ORDERED: Heparin 25,000 UNIT/500 ML D5W 25,000 UNIT/500 ML MLS IVC SCH (15:30)
[2016-12-06 15:45] LABS: Magnesium < 0.7 mg/dL (1.6-2.6)
[2016-12-06] MEDS ORDERED: Magnesium Sulfate 4 GM in D5% in Water 100 ML IVPB ONE (15:47)
[2016-12-06 16:17] LABS: Thyroid Stimulating Hormone 2.092 mcIU/mL (0.350-4.840)
[2016-12-06] MEDS: Heparin 25,000 UNIT/500 ML D5W 25,000 UNIT/500 ML MLS IVC SCH (16:56)
[2016-12-06] MEDS ORDERED: Ondansetron 4 MG/2 ML VIAL IVP PRN (16:56)
[2016-12-06] MEDS ORDERED: Acetaminophen 325 MG TABLET PO PRN (16:56)
[2016-12-06] MEDS ORDERED: Naloxone 0.4 MG/ML INJ IVP PRN (16:56)
[2016-12-06] MEDS ORDERED: Nitroglycerin 0.4 MG TAB.SUBL SL PRN (17:05)
[2016-12-06] MEDS: Magnesium Sulfate 2 GM in D5% in Water 100 ML IVPB SCH ×2 (17:22→18:20)
[2016-12-06] MEDS ORDERED: *HR* Morphine 2 MG/ML SYRINGE IVP PRN (17:26)
--- NOTE | 2016-12-06 17:34 | Internal Med History&Physical ---
Date of Encounter: 12/06/16 Time of Encounter: 16:00 Assessment and Plan (1) Epigastric pain Current visit: Yes Status: Acute Etiology is undetermined. Patient was admitted recently and workup including EGD has been done. - Continue antiacid treatment. - Troponin elevated, need to rule out ACS, will trend 3 sets of troponin. Cardiology on this case already (2) HTN (hypertension) Current visit: No Status: Chronic Continue home medication and the patient is on Cardizem drip. Closely monitor blood pressure Qualifiers: Hypertension type: essential hypertension Qualified Code(s): I10 - Essential (primary) hypertension (3) Dyspepsia Current visit: No Status: Acute Continue antiacid medication with omeprazole and Carafate (4) Elevated troponin Current visit: No Status: Acute Probably due to rapid ventricular response caused demand ischemia. However, patient has epigastric pain, also need to rule out ACS. We will trend 3 sets of troponin. (5) Atrial flutter with rapid ventricular response Current visit: Yes Status: Acute We will continue Cardizem drip and heparin drip for anticoagulation. - Cardiology consult appreciated, recommendation will be followed. (6) DVT prophylaxis Current visit: Yes Status: Acute Patient is on heparin drip Internal Medicine - H&P: HPI Chief complaint: Epigastric pain Admitted From: Home Plans for Post Hospital Care: Home History of present illness: Mr. Mazariegos is a 76 year old male seen the from primary care doctor office to ER for high blood pressure. Patient complaining of epigastric pain for 2 months. He was recently admitted to our hospital and serial workup has been done including echo and EGD. Patient said that the pain is intermittent, sharp , cramping, starting from the lower abdominal and goes to epigastric area, with nausea, lasts about 10 minutes, and a come back every 1-1/2 hour. Patient said that he has shortness of breath and diaphoresis along with the pain. Pain is responding to omeprazole but not nitroglycerin. Patient went to see PCP today and was found BP is high, he was suggested to go to emergency room. In ER, his BP is acceptable, however, he was found A flatter with rapid ventricular response and elevated troponin. Cardio consult was called, Cardizem and heparin drip was started per cardiology. Patient was admitted for A flutter with RVR and elevated troponin. Past Med Surg Social Fam HX - Past Medical History Medical history: arthritis, cancer, GERD, hyperlipidemia, hypertension Psychiatric history: no psych history - Past Surgical History Surgical History: orthopedic, other - Social History Smoking Status: Never smoker Smokeless Tobacco Status: No Alcohol use: none Drug use: none - Family History Mother Living Status: Hx Family Cancer: Yes ("blood") Father Living Status: Hx Family Cardiac Disorders: Yes Internal Medicine - H&P: Meds Acitretin [Soriatane] 10 mg PO BID 07/24/16 [History] Atorvastatin [Lipitor] 40 mg PO HS 07/24/16 [History] Ciclopirox [Loprox] 120 ml TP 3XW 07/24/16 [History] Ergocalciferol (VITAMIN D2) [Vitamin D2] 50,000 unit PO FLORES 07/24/16 [History] Finasteride [Proscar] 5 mg PO DAILY 07/24/16 [History] FluocinoNIDE 0.05% CRM [Lidex] 1 appl TP 3XW 07/24/16 [History] Fluticasone/Salmeterol [Advair Hfa 230-21 Mcg Inhaler] 2 puff IH BID 07/24/16 [ History] Isosorbide MONOnitrate (24 HR) [Imdur] 60 mg PO DAILY 07/24/16 [History] Levothyroxine [Synthroid] 50 mcg PO 0630 07/24/16 [History] NIFEdipine XL (24 HR) [Procardia XL] 60 mg PO DAILY 07/24/16 [History] Nitroglycerin [Nitrostat] 0.4 mg SL Q5M PRN 07/24/16 [History] Potassium Chloride [Klor-Con] 20 meq PO DAILY 07/24/16 [History] hydroCHLOROthiazide [Hydrochlorothiazide] 25 mg PO DAILY 07/24/16 [History] Aspirin [Lo-Dose Aspirin EC] 81 mg PO DAILY 11/14/16 [History] Fenofibrate Nanocrystallized [Tricor] 145 mg PO DAILY 11/14/16 [History] Ibuprofen [Motrin] 200 mg PO Q6HR PRN 11/14/16 [History] Metoprolol XL (24 HR) Succ [Toprol Xl] 25 mg PO DAILY 11/14/16 [History] Sucralfate [Carafate] 1 gm PO QIDAC 11/14/16 [History] Dicyclomine [Bentyl] 10 mg PO TID PRN #60 capsule 11/15/16 [Rx] Omeprazole [PriLOSEC] 40 mg PO DAILY@0730 capsule. 11/15/16 [Rx] Albuterol Neb [Proventil Neb] 2.5 mg IH BID 12/06/16 [History] cephALEXin [Keflex] 500 mg PO BID 12/06/16 [History] Allergies No Known Allergies Allergy (Verified 11/14/16 03:04) All Systems PM: A 10-system review of systems was performed and is negative for pertinent findings except as documented above in the HPI. - Constitutional Vitals: Temp Pulse Resp BP Pulse Ox 98.9 F 146 16 140/113 99 12/06/16 13:31 12/06/16 14:25 12/06/16 16:20 12/06/16 16:20 12/06/16 14:25 - Head Head exam: Present: atraumatic, normocephalic - Eye Eye exam: Present: PERRL, conjuntiva pink, sclera anicteric Pupils: Present: PERRL - Neck Neck exam general surgery: Present: supple, trachea midline. Absent: lymphadenopathy - Respiratory Respiratory exam: Present: CTAB. Absent: accessory muscle use, rales, rhonchi, wheezes - Cardiovascular Cardiovascular exam: Present: RRR, +S1, +S2, tachycardia. Absent: diastolic murmur, gallop, rubs, systolic murmur - GI/Abdominal GI/Abdominal exam: Present: normal bowel sounds, soft, tenderness (Epigastric tenderness), no peritoneal signs. Absent: distended - Extremities Exam Extremities exam: Present: warm, radial pulses palpable and symetrical. Absent : calf tenderness, cyanotic, pedal edema - Neurological Exam Neurological exam: Present: CN II-XII intact, oriented X3, no focal deficits. Absent: pronater drift, facial droop, speech deficit - Skin Skin exam: Present: dry, intact Internal Med - H&P Results - Labs CBC & Chem 7: 12/06/16 13:45 12/06/16 13:45
[2016-12-06] MEDS ORDERED: ACITRETIN 10 MG PO SCH (21:00)
[2016-12-06] MEDS: Sucralfate 1 GM TABLET PO SCH (21:39)
[2016-12-06] MEDS ORDERED: Albuterol 2.5 MG/3 ML NEBULIZER IH SCH (22:00)
[2016-12-06] MEDS ORDERED: Budesonide/Formoterol 160/4.5 MDI IH SCH (22:00)
[2016-12-06] MEDS ORDERED: 0.9 % Sodium Chloride 500 ML ONE (23:36)
[2016-12-07 04:27] LABS: Basophils % 0.4 %; Eosinophils # 0.1 K/mcL (0.0-0.6); Eosinophils % 0.9 %; Hematocrit 40.2 % (37.5-50.1); Immature Granulocytes % 0.4 % (0-4); Lymphocytes % 23.2 %; Mean Corpuscular HGB Conc 32.3 g/dL (31.6-35.5); Mean Corpuscular Hemoglobin 26.5 pg (28.0-33.3); Mean Corpuscular Volume 81.9 fL (83.0-100.0); Mean Platelet Volume 10.4 fL (9.4-12.4); Monocytes # 0.6 K/mcL (0.0-1.3); Monocytes % 7.5 %; Neutrophils # 5.8 K/mcL (1.6-8.9); Platelet Count 230 K/mcL (140-400); Red Blood Count 4.91 M/mcL (4.19-5.50); Segmented Neutrophils % 67.6 %
[2016-12-07 07:04] LABS: Calcium 9.3 mg/dL (8.6-10.8)
[2016-12-07 07:15] LABS: Activated Partial Thrombo Time 120.6 Seconds (26.0-36.0)
[2016-12-07 07:29] LABS: Heparin anti-factor XA UFH 0.64 IU/mL (0.30-0.70)
[2016-12-07] MEDS: Sucralfate 1 GM TABLET PO SCH ×4 (07:39→21:01)
[2016-12-07] MEDS ORDERED: Magnesium Sulfate 1 GM in D5% in Water 100 ML IVPB ONE (07:45)
[2016-12-07] MEDS ORDERED: Metoprolol XL (24 HR) Succ 25 MG TAB.ER.24H PO SCH (09:00)
[2016-12-07] MEDS ORDERED: Isosorbide MONOnitrate (24 HR) 60 MG TAB.ER.24H PO SCH (09:00)
[2016-12-07] MEDS ORDERED: hydroCHLOROthiazide 25 MG TABLET PO SCH (09:00)
[2016-12-07] MEDS: Finasteride 5 MG TABLET PO SCH (09:33)
[2016-12-07] MEDS: Fenofibrate 54 MG TABLET PO SCH (09:33)
[2016-12-07] MEDS: Aspirin Enteric Coated 81 MG Tablet PO SCH (09:33)
--- NOTE | 2016-12-07 09:42 | Cardiology Progress Note ---
Date of Encounter: 12/07/16 Time of Encounter: 09:00 Assessment and Plan (1) Atrial flutter with rapid ventricular response Current Visit: Yes Status: Acute Per cardiology: -New onset atrial flutter with RVR. -Average HR previous 12 hours noted to be 118, atrial flutter. -Cardizem drip at 10mg/hour. -CHads 2vasc score 4 (age, HTN, vascular disease). 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 On heparin drip. -K 3.1 on admission and was replaced. -Magnesium <0.7 on admission, today 1.4. Was given 4gm magnesium in ER and another rider ordered this morning. -TSH within normal limits. -Beta violet was started yesterday, however it appears this was discontinued. -BPs 100-120s systolic. -Recommend titrating cardizem drip. -Will start beta violet. -Will continue to monitor BP and HR. (2) Elevated troponin Current Visit: No Status: Acute Per cardiology: -Troponin 0.16, 0.14, 0.19. -ECG with atrial flutter. -Patient being started on heparin drip. -Admits to pain, however states starts in abdomen and travels to chest. States pain is relieved by omeprazole. Patient denies pain today. -Echo 11/14/16 with LVEF 65%, mild concentric LVH, mild diastolic dysufnction. -DO not suspect NSTEMI, suspect demand ischemia related to atrial flutter with RVR. No cardiac rehab warranted. (3) CAD (coronary artery disease) Current Visit: No Status: Chronic Per cardiology: -Known CAD with [facility] 10/2013 with 50% mid LAD diffusely diseased, 30% proximal circumflex, 50% mid circ small vessel, 50% OM1, 60% proximal RCA with FFR 0.95, 40% distal RCA, 40% PDA, 40% PL. -On asa at home. -Intolerant to statins. -Will continue to monitor. -Will start beta violet. Qualifiers: Coronary Disease-Associated Artery/Lesion type: [place] artery [place] vs. transplanted heart: [place] heart Associated angina: angina presence unspecified Qualified Code(s): I25.10 - Atherosclerotic heart disease of [place] coronary artery without angina pectoris (4) Chest pain Current Visit: Yes Status: Acute Per cardiology: -Patient admits to pain that starts in abdomen and travels to chest. -Pateint states he has had this pain intermittently for 2 months. -Pateint states pain is relieved by omeprazole. -Pateint denies pain today. Discussion w patient/family: The assessment and plan as outlined above was discussed with the patient who expressed understanding and agreement. All questions were answered. Thank you for involving us in the care of your patient. Please call with any questions. Discussed and reviewed with . Subjective Principal diagnosis: atrial flutter Interval history: Patient currently on cardizem drip. Patient states he feels better today. Patient denies palpitations or fluttering. Patient states pain is imrpoved. Objective Vital Signs, Last 4 Hours Temp Pulse Resp BP Pulse Ox 12/07/16 09:25 110 117/72 100 12/07/16 07:33 97.9 F 147 18 100/71 98 General: Conversant, No Apparent Distress HEENT: Atraumatic, Normocephaly, Mucus Membranes Moist Neck: No JVD, Normal carotid pulses Cardiac: Normal S1 and S2, No Murmur, Other (Irregularly, irregular. ) Lungs: Normal Breath Sounds, No Wheeze, Rales, Rhonchi Neuro: Alert and responsive, No focal deficits noted Abdomen: Soft, Non-Tender Skin: No rashes noted on visualized skin Musculoskeletal: No Chest Wall Tenderness Extremities: No Clubbing, No Cyanosis, No Edema, Normal Pulses Results 12/07/16 04:00 12/07/16 06:39 Lab Results Impressions Chest X-Ray 12/06/16 13:38 IMPRESSION: Stable borderline cardiomegaly. Minimal pulmonary vascular congestion. D/ / Abhishek Royal MD / Abhishek Royal MD Interpreting Provider: Abhishek Royal MD Active Medications Acetaminophen (Tylenol) 650 mg PO Q6HR PRN PRN Reason: Mild Pain (1-3) Stop: 06/07/17 16:57 Aspirin (Aspirin Ec) 81 mg PO DAILY [facility] Stop: 06/08/17 09:01 Last Admin: 12/07/16 09:33 Dose: 81 mg Atorvastatin Calcium (Lipitor) 40 mg PO HS [facility] Stop: 06/07/17 21:01 Last Admin: 12/06/16 21:39 Dose: 40 mg Dicyclomine HCl (Bentyl) 10 mg PO TID PRN PRN Reason: Pain Stop: 06/07/17 17:06 Fenofibrate (Tricor) 162 mg PO DAILY [facility] Stop: 06/08/17 09:01 Last Admin: 12/07/16 09:33 Dose: 162 mg Finasteride (Proscar) 5 mg PO DAILY [facility] PRN Reason: Protocol Stop: 06/08/17 09:01 Last Admin: 12/07/16 09:33 Dose: 5 mg Heparin Sodium (Porcine) (Heparin) 5,200 unit 70 unit/kg (5200 unit) IVP Q6HR PRN PRN Reason: SEE COMMENTS Stop: 06/07/17 15:44 Heparin Sodium (Porcine) (Heparin) 2,600 unit 35 unit/kg (2600 unit) IVP Q6H PRN PRN Reason: SEE COMMENTS Stop: 06/07/17 15:44 Diltiazem HCl 125 mg/ Dextrose 125 mls @ 5 mls/hr IVC .Q24H [facility]; 5 MG/HR PRN Reason: Protocol Stop: 06/07/17 14:01 Last Admin: 12/07/16 02:13 Dose: 10 mg/hr, 10 mls/hr Heparin Sodium/Dextrose (Heparin 25,000 Unit/500 Ml D5w) 25,000 unit in 500 mls @ 20.956 mls/hr IVC .[id number] [facility]; 14 UNIT/KG/HR PRN Reason: Protocol Stop: 06/07/17 15:46 Last Titration: 12/07/16 09:15 Dose: 8 unit/kg/hr, 11.975 mls/hr Ipratropium [place] (Atrovent Neb) 0.5 mg IH [id number] [facility] Stop: 06/08/17 10:01 Levalbuterol HCl (Xopenex) 0.63 mg IH [id number] [facility] Stop: 06/08/17 10:01 Levothyroxine Sodium (Synthroid) 50 mcg PO 0630 [facility] Stop: 06/08/17 06:31 Last Admin: 12/07/16 05:31 Dose: 50 mcg Naloxone HCl (Narcan) 0.4 mg IVP Q2MIN PRN PRN Reason: Opioid Reversal Stop: 06/07/17 16:57 Nitroglycerin (Nitroglycerin) 0.4 mg SL Q5M PRN PRN Reason: Chest Pain Stop: 06/07/17 17:06 Omeprazole (Prilosec) 40 mg PO DAILY@0730 [facility] PRN Reason: Protocol Stop: 06/08/17 07:31 Last Admin: 12/07/16 07:39 Dose: 40 mg Ondansetron HCl (Zofran) 4 mg IVP Q8HR PRN PRN Reason: Nausea And Vomiting Stop: 06/07/17 16:57 Potassium Chloride (Potassium Chloride) 20 meq PO DAILY [facility] Stop: 06/08/17 09:01 Last Admin: 12/07/16 09:33 Dose: 20 meq Sucralfate (Carafate) 1 gm PO QIDAC [facility] Stop: 06/07/17 22:01 Last Admin: 12/07/16 07:39 Dose: 1 gm Laboratory Tests 11/14/16 11/15/16 12/06/16 03:17 04:35 13:45 Hgb Potassium 3.1 L Creatinine 1.90 H 2.13 H 1.81 H Magnesium < 0.7 L Troponin I TSH 2.092 12/06/16 12/06/16 12/07/16 13:45 20:49 04:00 Hgb Potassium Creatinine Magnesium Troponin I 0.16 H* 0.14 H* 0.19 H* TSH 12/07/16 12/07/16 12/07/16 04:00 04:00 06:39 Hgb 13.0 Potassium 4.0 Creatinine 1.79 H Magnesium 1.4 L Troponin I TSH - Imaging and Cardiology Chest Xray: report reviewed Echo: report reviewed - EKG Interpretation EKG results cardiology: other (Telemetry reviewed with average HR 118, atrial flutter. PVCs noted.) Consult Discharge Plan - Plan Referrals: Noel Petty DO [Primary Care Provider] -
[2016-12-07] MEDS: Metoprolol XL (24 HR) Succ 25 MG TAB.ER.24H PO SCH (11:47)
[2016-12-07] MEDS: Levalbuterol Neb 0.63 MG/3 ML IH SCH ×2 (12:15→16:33)
[2016-12-07] MEDS: Ipratropium Neb 0.5 MG NEBULIZER IH SCH ×2 (12:15→16:33)
--- NOTE | 2016-12-07 14:00 | Internal Med Progress Note ---
Date of Encounter: 12/07/16 Time of Encounter: 10:45 - Assessment and plan (1) Atrial flutter with rapid ventricular response Current Visit: Yes Status: Acute Assessment and plan: new onset afib. cHADs-VASC score is 4. appreciate cardioogy input. HR still not controlled. continue cardizem and heparin drip. resume metoprolol home dose. 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 continue home meds. Qualifiers: Coronary Disease-Associated Artery/Lesion type: [place] artery [place] vs. transplanted heart: [place] heart Associated angina: angina presence unspecified Qualified Code(s): I25.10 - Atherosclerotic heart disease of [place] coronary artery without angina pectoris (4) CKD (chronic kidney disease) stage 3, GFR 30-59 ml/min Current Visit: No Status: Chronic Assessment and plan: at baseline. (5) HTN (hypertension) Current Visit: No Status: Chronic Assessment and plan: controlled. Qualifiers: Hypertension type: essential hypertension Qualified Code(s): I10 - Essential (primary) hypertension (6) MICHAEL (obstructive sleep apnea) Current Visit: No Status: Chronic (7) Hypomagnesemia Current Visit: Yes Status: Acute Assessment and plan: replete (8) Hypokalemia Current Visit: Yes Status: Acute Assessment and plan: replete - Subjective Interval history: patient reports chest palpitations. - Constitutional Vitals: Temp Pulse Resp BP Pulse Ox 97.9 F 146 18 95/75 95 12/07/16 12:01 12/07/16 13:31 12/07/16 12:01 12/07/16 13:31 12/07/16 13:31 General appearance: Present: cooperative, A&O X 3, pleasant, no acute distress, answers questions appropriately - Neck Neck exam general surgery: Present: supple, trachea midline. Absent: lymphadenopathy - Respiratory Respiratory exam: Present: CTAB - Cardiovascular Cardiovascular exam: Present: irregular rhythm, tachycardia - GI/Abdominal GI/Abdominal exam: Present: normal bowel sounds, soft. Absent: distended, tenderness - Extremities Exam Extremities exam: Absent: pedal edema - Neurological Exam Neurological exam: Present: alert, oriented X3. Absent: facial droop, speech deficit Internal Medicine: Result - Labs CBC & Chem 7: 12/07/16 04:00 12/07/16 06:39 Labs: Short CBC 12/07/16 Range/Units 04:00 WBC 8.5 (4.3-11.1) K/mcL Hgb 13.0 (12.9-16.9) g/dL Hct 40.2 (37.5-50.1) % Plt Count 230 (140-400) K/mcL Neutrophils # 5.8 (1.6-8.9) K/mcL BMP 12/07/16 06:39 Sodium 140 Potassium 4.0 Chloride 106 Carbon Dioxide 26 BUN 30 H Creatinine 1.79 H Glucose 96 Calcium 9.3 Cardiac Enzymes 12/06/16 12/07/16 Range/Units 20:49 04:00 Troponin I 0.14 H* 0.19 H* (0-0.03) ng/mL - ABG Interpretation ABG results: PT/INR, D-dimer PT 12.4 Seconds (9.4-12.1) H 12/06/16 13:45 Consult Discharge Plan - Plan Referrals: Noel Petty DO [Primary Care Provider] -
[2016-12-07] MEDS: Heparin 25,000 UNIT/500 ML D5W 25,000 UNIT/500 ML MLS IVC SCH (15:30)
[2016-12-07] MEDS ORDERED: Levalbuterol Neb 0.63 MG/3 ML IH PRN (16:54)
[2016-12-07] MEDS ORDERED: Ipratropium Neb 0.5 MG NEBULIZER IH PRN (16:54)
[2016-12-07 18:40] LABS: Magnesium 1.5 mg/dL (1.6-2.6); Potassium 3.8 mEq/L (3.5-4.5)
[2016-12-07] MEDS ORDERED: Magnesium Sulfate 2 GM in D5% in Water 100 ML IVPB ONE (18:46)
[2016-12-07] MEDS: *HR* Heparin 5,000 UNIT/ML VIAL IVP PRN (21:52)
[2016-12-08 01:09] LABS: Basophils # 0.1 K/mcL (0.0-0.2); Basophils % 0.6 %; Eosinophils # 0.1 K/mcL (0.0-0.6); Eosinophils % 1.4 %; Hematocrit 37.1 % (37.5-50.1); Hemoglobin 11.6 g/dL (12.9-16.9); Immature Granulocytes % 0.4 % (0-4); Lymphocytes % 25.3 %; Mean Corpuscular HGB Conc 31.3 g/dL (31.6-35.5); Mean Platelet Volume 10.1 fL (9.4-12.4); Monocytes # 0.7 K/mcL (0.0-1.3); Monocytes % 8.4 %; Neutrophils # 5.1 K/mcL (1.6-8.9); Platelet Count 227 K/mcL (140-400); Red Blood Count 4.47 M/mcL (4.19-5.50); Red Cell Distribution Width 17.2 % (11.5-14.5); Segmented Neutrophils % 63.9 %
[2016-12-08 01:25] LABS: Calcium 8.6 mg/dL (8.6-10.8)
[2016-12-08] MEDS: Finasteride 5 MG TABLET PO SCH (07:23)
[2016-12-08] MEDS: Sucralfate 1 GM TABLET PO SCH ×4 (07:24→21:09)
[2016-12-08] MEDS: Fenofibrate 54 MG TABLET PO SCH (07:24)
[2016-12-08] MEDS: Metoprolol XL (24 HR) Succ 25 MG TAB.ER.24H PO SCH (07:24)
[2016-12-08] MEDS: Aspirin Enteric Coated 81 MG Tablet PO SCH (07:24)
--- NOTE | 2016-12-08 10:22 | Cardiology Progress Note ---
Date of Encounter: 12/08/16 Time of Encounter: 09:30 Assessment and Plan (1) Atrial flutter with rapid ventricular response Current Visit: Yes Status: Acute Per cardiology: -New onset atrial flutter with RVR. -Average HR previous 12 hours noted to be 118, atrial flutter. -Cardizem drip at 20mg/hour. -CHads 2vasc score 4 (age, HTN, vascular disease). 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 On heparin drip. -K 3.1 on admission and was replaced. -Magnesium <0.7 on admission, today 2. -TSH within normal limits. -ON beta violet. -BPs 80-100s systolic. -Unable to titrate beta violet further due to hypotension. -Will make NPO after midnight for possible cardioversion in am. -Will continue to monitor. (2) Elevated troponin Current Visit: No Status: Acute Per cardiology: -Troponin 0.16, 0.14, 0.19. -ECG with atrial flutter. -Patient being started on heparin drip. -Admits to pain, however states starts in abdomen and travels to chest. States pain is relieved by omeprazole. Patient denies pain today. -Echo 11/14/16 with LVEF 65%, mild concentric LVH, mild diastolic dysufnction. -DO not suspect NSTEMI, suspect demand ischemia related to atrial flutter with RVR. No cardiac rehab warranted. (3) CAD (coronary artery disease) Current Visit: No Status: Chronic Per cardiology: -Known CAD with [facility] 10/2013 with 50% mid LAD diffusely diseased, 30% proximal circumflex, 50% mid circ small vessel, 50% OM1, 60% proximal RCA with FFR 0.95, 40% distal RCA, 40% PDA, 40% PL. -On asa and beta violet. -Intolerant to statins. -Will continue to monitor. (4) Chest pain Current Visit: Yes Status: Acute Per cardiology: -Patient admits to pain that starts in abdomen and travels to chest. -Pateint states he has had this pain intermittently for 2 months. -Pateint states pain is relieved by omeprazole. -Pateint denies pain today. Discussion w patient/family: The assessment and plan as outlined above was discussed with the patient who expressed understanding and agreement. All questions were answered. Thank you for involving us in the care of your patient. Please call with any questions. Discussed and reviewed with . Subjective Principal diagnosis: atrial flutter Interval history: Patient currently on cardizem drip. Patient states he feels better today. Patient denies palpitations or fluttering. Patient states pain is gone today. Average HR overnight on telemetry noted to be 118, atrial flutter. Objective Vital Signs, Last 4 Hours Temp Pulse Resp BP Pulse Ox 12/08/16 07:19 98.0 F 125 16 86/72 98 12/08/16 07:00 112 12/08/16 06:53 24 100 General: Conversant, No Apparent Distress HEENT: Atraumatic, Normocephaly, Mucus Membranes Moist Neck: No JVD, Normal carotid pulses Cardiac: No Murmur, Other (Irregularly irregular) Lungs: Normal Breath Sounds, No Wheeze, Rales, Rhonchi Neuro: Alert and responsive, No focal deficits noted Abdomen: Soft, Non-Tender Skin: No rashes noted on visualized skin Musculoskeletal: No Chest Wall Tenderness Extremities: No Clubbing, No Cyanosis, No Edema, Normal Pulses Results 12/08/16 00:53 12/08/16 00:53 Lab Results Active Medications Acetaminophen (Tylenol) 650 mg PO Q6HR PRN PRN Reason: Mild Pain (1-3) Stop: 06/07/17 16:57 Aspirin (Aspirin Ec) 81 mg PO DAILY [facility] Stop: 06/08/17 09:01 Last Admin: 12/08/16 07:24 Dose: 81 mg Atorvastatin Calcium (Lipitor) 40 mg PO HS [facility] Stop: 06/07/17 21:01 Last Admin: 12/07/16 21:01 Dose: 40 mg Dicyclomine HCl (Bentyl) 10 mg PO TID PRN PRN Reason: Pain Stop: 06/07/17 17:06 Fenofibrate (Tricor) 162 mg PO DAILY [facility] Stop: 06/08/17 09:01 Last Admin: 12/08/16 07:24 Dose: 162 mg Finasteride (Proscar) 5 mg PO DAILY [facility] PRN Reason: Protocol Stop: 06/08/17 09:01 Last Admin: 12/08/16 07:23 Dose: 5 mg Guaifenesin (Mucinex) 600 mg PO BID [facility] Stop: 06/09/17 09:31 Heparin Sodium (Porcine) (Heparin) 5,200 unit 70 unit/kg (5200 unit) IVP Q6HR PRN PRN Reason: SEE COMMENTS Stop: 06/07/17 15:44 Heparin Sodium (Porcine) (Heparin) 2,600 unit 35 unit/kg (2600 unit) IVP Q6H PRN PRN Reason: SEE COMMENTS Stop: 06/07/17 15:44 Last Admin: 12/07/16 21:52 Dose: 2,600 unit Diltiazem HCl 125 mg/ Dextrose 125 mls @ 5 mls/hr IVC .Q24H [facility]; 5 MG/HR PRN Reason: Protocol Stop: 06/07/17 14:01 Last Admin: 12/08/16 07:49 Dose: 20 mg/hr, 20 mls/hr Heparin Sodium/Dextrose (Heparin 25,000 Unit/500 Ml D5w) 25,000 unit in 500 mls @ 20.956 mls/hr IVC .[id number] [facility]; 14 UNIT/KG/HR PRN Reason: Protocol Stop: 06/07/17 15:46 Last Titration: 12/08/16 10:15 Dose: 10 unit/kg/hr, 14.969 mls/hr Ipratropium [place] (Atrovent Neb) 0.5 mg IH [id number] PRN PRN Reason: Tachyarrhythmias Stop: 06/08/17 10:01 Last Admin: 12/08/16 06:53 Dose: 0.5 mg Levalbuterol HCl (Xopenex) 0.63 mg IH [id number] PRN PRN Reason: Tachyarrhythmias Stop: 06/08/17 10:01 Last Admin: 12/08/16 06:53 Dose: 0.63 mg Levothyroxine Sodium (Synthroid) 50 mcg PO 0630 [facility] Stop: 06/08/17 06:31 Last Admin: 12/08/16 06:00 Dose: 50 mcg Metoprolol Succinate (Toprol Xl) 12.5 mg PO DAILY [facility] Stop: 06/08/17 10:01 Last Admin: 12/08/16 07:24 Dose: 12.5 mg Naloxone HCl (Narcan) 0.4 mg IVP Q2MIN PRN PRN Reason: Opioid Reversal Stop: 06/07/17 16:57 Nitroglycerin (Nitroglycerin) 0.4 mg SL Q5M PRN PRN Reason: Chest Pain Stop: 06/07/17 17:06 Omeprazole (Prilosec) 40 mg PO DAILY@0730 [facility] PRN Reason: Protocol Stop: 06/08/17 07:31 Last Admin: 12/08/16 07:24 Dose: 40 mg Ondansetron HCl (Zofran) 4 mg IVP Q8HR PRN PRN Reason: Nausea And Vomiting Stop: 06/07/17 16:57 Potassium Chloride (Potassium Chloride) 20 meq PO DAILY [facility] Stop: 06/08/17 09:01 Last Admin: 12/08/16 07:24 Dose: 20 meq Sucralfate (Carafate) 1 gm PO QIDAC [facility] Stop: 06/07/17 22:01 Last Admin: 12/08/16 07:24 Dose: 1 gm - Imaging and Cardiology Chest Xray: report reviewed Echo: report reviewed - EKG Interpretation EKG results cardiology: other (Telemetry reviewed with average HR previous 12 hours noted to be 118 atrial flutter. PVCs and couplets noted.) Consult Discharge Plan - Plan Referrals: Noel Petty DO [Primary Care Provider] -
--- NOTE | 2016-12-08 15:30 | Electrocardiograph Report ---
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
--- NOTE | 2016-12-08 16:39 | Internal Med Progress Note ---
Date of Encounter: 12/08/16 Time of Encounter: 07:45 - Assessment and plan (1) Atrial flutter with rapid ventricular response Current Visit: Yes Status: Acute Assessment and plan: new onset afib. cHADs-VASC score is 4. 6/: Echocardiogram showed LVEF 65%, mild concentric LVH, mild LV diastolic dysfunction appreciate cardioogy input. HR still not controlled. plan for DCCV/ANTONINO. 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 continue home meds. Qualifiers: Coronary Disease-Associated Artery/Lesion type: [place] artery [place] vs. transplanted heart: [place] heart Associated angina: angina presence unspecified Qualified Code(s): I25.10 - Atherosclerotic heart disease of [place] coronary artery without angina pectoris (4) CKD (chronic kidney disease) stage 3, GFR 30-59 ml/min Current Visit: No Status: Chronic Assessment and plan: at baseline. (5) HTN (hypertension) Current Visit: No Status: Chronic Assessment and plan: controlled. Qualifiers: Hypertension type: essential hypertension Qualified Code(s): I10 - Essential (primary) hypertension (6) MICHAEL (obstructive sleep apnea) Current Visit: No Status: Chronic (7) Hypomagnesemia Current Visit: Yes Status: Resolved Assessment and plan: replete (8) Hypokalemia Current Visit: Yes Status: Resolved Assessment and plan: replete - Subjective Interval history: patient denies any chest pain. He had an episode of shortness of breath this morning that resolved with nebs. - Constitutional Vitals: Temp Pulse Resp BP Pulse Ox 97.7 F 141 16 104/80 94 12/08/16 15:10 12/08/16 16:00 12/08/16 15:10 12/08/16 16:00 12/08/16 15:10 General appearance: Present: cooperative, A&O X 3, pleasant, no acute distress, answers questions appropriately - Respiratory Respiratory exam: Present: CTAB - Cardiovascular Cardiovascular exam: Present: irregular rhythm, tachycardia - GI/Abdominal GI/Abdominal exam: Present: normal bowel sounds, soft. Absent: distended, tenderness - Extremities Exam Extremities exam: Absent: pedal edema - Back Exam Back exam: Absent: CVA tenderness (L), CVA tenderness (R) - Neurological Exam Neurological exam: Present: alert, oriented X3, strengths equal and symetr throughout. Absent: facial droop, speech deficit Internal Medicine: Result - Labs CBC & Chem 7: 12/08/16 00:53 12/08/16 00:53 Labs: Short CBC 12/08/16 Range/Units 00:53 WBC 8.0 (4.3-11.1) K/mcL Hgb 11.6 L (12.9-16.9) g/dL Hct 37.1 L (37.5-50.1) % Plt Count 227 (140-400) K/mcL Neutrophils # 5.1 (1.6-8.9) K/mcL BMP 12/07/16 12/08/16 18:26 00:53 Sodium 140 Potassium 3.8 4.0 Chloride 109 Carbon Dioxide 25 BUN 34 H Creatinine 2.06 H Glucose 99 Calcium 8.6 - ABG Interpretation ABG results: PT/INR, D-dimer PT 12.4 Seconds (9.4-12.1) H 12/06/16 13:45 Consult Discharge Plan - Plan Referrals: Noel Petty DO [Primary Care Provider] -
[2016-12-08] MEDS: *HR* Heparin 5,000 UNIT/ML VIAL IVP PRN (19:42)
[2016-12-09 02:05] LABS: Basophils # 0.1 K/mcL (0.0-0.2); Basophils % 0.5 %; Eosinophils # 0.2 K/mcL (0.0-0.6); Eosinophils % 2.5 %; Hematocrit 40.2 % (37.5-50.1); Hemoglobin 12.5 g/dL (12.9-16.9); Immature Granulocytes % 0.3 % (0-4); Lymphocytes # 2.6 K/mcL (0.6-4.6); Lymphocytes % 28.7 %; Mean Corpuscular HGB Conc 31.1 g/dL (31.6-35.5); Mean Corpuscular Volume 83.6 fL (83.0-100.0); Mean Platelet Volume 10.4 fL (9.4-12.4); Monocytes # 0.7 K/mcL (0.0-1.3); Monocytes % 7.7 %; Neutrophils # 5.5 K/mcL (1.6-8.9); Platelet Count 268 K/mcL (140-400); Red Blood Count 4.81 M/mcL (4.19-5.50); Red Cell Distribution Width 17.2 % (11.5-14.5); Segmented Neutrophils % 60.3 %
[2016-12-09 02:18] LABS: Calcium 9.2 mg/dL (8.6-10.8); Magnesium 1.4 mg/dL (1.6-2.6); Potassium 4.2 mEq/L (3.5-4.5)
[2016-12-09] MEDS: Heparin 25,000 UNIT/500 ML D5W 25,000 UNIT/500 ML MLS IVC SCH (05:39)
[2016-12-09] MEDS: Metoprolol XL (24 HR) Succ 25 MG TAB.ER.24H PO SCH (08:08)
[2016-12-09] MEDS: Fenofibrate 54 MG TABLET PO SCH (08:08)
[2016-12-09] MEDS: Finasteride 5 MG TABLET PO SCH (08:09)
[2016-12-09] MEDS: Sucralfate 1 GM TABLET PO SCH ×4 (08:09→20:54)
[2016-12-09] MEDS: Aspirin Enteric Coated 81 MG Tablet PO SCH (08:09)
--- NOTE | 2016-12-09 09:37 | Electrophysiology Consult Note ---
Date of Encounter: 12/09/16 Time of Encounter: 09:00 Assessment and Plan (1) Atrial flutter with rapid ventricular response Current Visit: Yes Status: Acute Per electrophysiology: Atrial flutter with RVR. Timing of onset unknown. he is asymptomatic. EKG one month ago showed SR with PAC. Previous cardiac testing: TTE 11/14/16: EF 65%, mild LVH, normal RV, no significant valvular disease, no pulmonary hypertension. Pharmacologic Stress test 01/03/15: Negative for ischemia or infarct. Gated EF 70 %. 24 hour telemetry review shows avg HR 135 bpm over last 12 hours. Currently on cardizem drip at 20mg/hour and toprol XL 12.5 mg BID. B/p marginal. Electrolytes replaced. Magnesium 1.5. Continue to replace. TSH normal. Discussed possible ANTONINO with DCCV today. Indications, benefits and risks discussed. Patient agrees. In regards to anticoagulation CHADs vasc score = 4 (age, HTN, CAD). Currently on heparin gtt. I discussed nursing home anticoagulation. Patient has NICO on CKD currently. Candidate for eliquis 5 mg BID. Will need wilder check. Discussion w patient/family: The assessment and plan as outlined above was discussed with the patient and/or family members who expressed understanding and agreement. All questions were answered. Thank you for involving us in the care of your patient. Please call with any questions. History of Present Illness Consult date: 12/09/16 Requesting physician: Armando Gonzales Consult reason: Atrial flutter with RVR Chief complaint: Abdominal pain History of present illness: Mr. Mazariegos is a 76 year old male with a past medical history of moderate non -obstructive CAD, HTN, CKD, hypothyroidism< MICHAEL untreated, and asthma who presented to his PCP with abdominal pain. He was seen to have atrial flutter with RVR and sent to the hospital. He reports being told by a nurse three months ago he had an irregular heart rhythm. He denies palpitations. Denies chest pain currently. He does admit to mid-sternal chest tightness with ambulation that is relieved with rest associated with SOB. He c/o right groin pain radiating to his abdomen on admission. His pain is now relieved. On admission to the hospital he was found to have electrolyte derangement. Potassium was 3.1 and magnesium was <0.7. His potassium and magnesium was replaced. EGD was completed in October. Liver US showed no evidence of cholecytitis. His abdominal pain is resolved. He was found to have mild adynamic troponin elevation. NSTEMI not suspected, likely demand ischemia due to atrial flutter per primary cardiology team. Previous cardiac testing. TTE 11/14/16: EF 65%, mild LVH, normal RV, no significant valvular disease, no pulmonary hypertension. Pharmacologic Stress test 01/03/15: Negative for ischemia or infarct. Gated EF 70 %. [facility] 10/2013: 50% stenosis mLAD, 30% stenosis pCX, 50% stenosis m CX, 50% stenosis OM1, 60% pRCA (FFR 0.95), 40% stenosis dRCA, 40% stenosis PDA, 40% stenosis in the PL. Past Med Surg Social Fam HX - Past Medical History Medical history: arthritis, cancer, coronary artery disease, GERD, hyperlipidemia, hypertension Psychiatric history: no psych history - Past Surgical History Surgical History: orthopedic, other - Social History Smoking Status: Never smoker Smokeless Tobacco Status: No Alcohol use: none Drug use: none - Family History Mother Name: HARRIS MAZARIEGOS Living Status: Age at : 56 Cause of : CANCER (BLOOD) Hx Family Cancer: Yes ("blood") Father Name: JACQUELINE MAZARIEGOS Living Status: Age at : 57 Cause of : CVA Hx Family Cardiac Disorders: Yes Hx Family Respiratory Disorders: No Hx Family Cancer: No Hx Family GI Disorders: No Hx Family Genitourinary Disorders: No Hx Family Endocrine Disorder: No (GRANDMOTHER WAS DIABETIC) Hx Family Musculoskeletal Disorders: No Hx Family Neuromuscular Disorders: No Hx Family Neurologic Disorders: No Hx Family HEENT Disorders: No Hx Family Autoimmune Disorders: No Hx Family Reproductive Disorders: No Hx Family Psychosocial Disorders: No Hx Family Medical Disorders: No Medications and Allergies Acitretin [Soriatane] 10 mg PO BID 07/24/16 [History] Atorvastatin [Lipitor] 40 mg PO HS 07/24/16 [History] Ciclopirox [Loprox] 120 ml TP 3XW 07/24/16 [History] Ergocalciferol (VITAMIN D2) [Vitamin D2] 50,000 unit PO FLORES 07/24/16 [History] Finasteride [Proscar] 5 mg PO DAILY 07/24/16 [History] FluocinoNIDE 0.05% CRM [Lidex] 1 appl TP 3XW 07/24/16 [History] Fluticasone/Salmeterol [Advair Hfa 230-21 Mcg Inhaler] 2 puff IH BID 07/24/16 [ History] Isosorbide MONOnitrate (24 HR) [Imdur] 60 mg PO DAILY 07/24/16 [History] Levothyroxine [Synthroid] 50 mcg PO 0630 07/24/16 [History] NIFEdipine XL (24 HR) [Procardia XL] 60 mg PO DAILY 07/24/16 [History] Nitroglycerin [Nitrostat] 0.4 mg SL Q5M PRN 07/24/16 [History] Potassium Chloride [Klor-Con] 20 meq PO DAILY 07/24/16 [History] hydroCHLOROthiazide [Hydrochlorothiazide] 25 mg PO DAILY 07/24/16 [History] Aspirin [Lo-Dose Aspirin EC] 81 mg PO DAILY 11/14/16 [History] Fenofibrate Nanocrystallized [Tricor] 145 mg PO DAILY 11/14/16 [History] Ibuprofen [Motrin] 200 mg PO Q6HR PRN 11/14/16 [History] Metoprolol XL (24 HR) Succ [Toprol Xl] 25 mg PO DAILY 11/14/16 [History] Sucralfate [Carafate] 1 gm PO QIDAC 11/14/16 [History] Dicyclomine [Bentyl] 10 mg PO TID PRN #60 capsule 11/15/16 [Rx] Omeprazole [PriLOSEC] 40 mg PO DAILY@0730 capsule. 11/15/16 [Rx] Albuterol Neb [Proventil Neb] 2.5 mg IH BID 12/06/16 [History] cephALEXin [Keflex] 500 mg PO BID 12/06/16 [History] Allergies No Known Allergies Allergy (Verified 11/14/16 03:04) All Systems Review: A 10-system review of systems was performed and is negative for pertinent findings except as documented above in the HPI. Physical Examination Vital Signs, Last 4 Hours Temp Pulse Resp BP Pulse Ox 12/09/16 08:20 98.6 F 142 18 109/78 98 12/09/16 07:56 98.6 F 142 18 107/90 98 General: Conversant, No Apparent Distress HEENT: Atraumatic, Normocephaly, Mucus Membranes Moist Neck: No JVD, Normal carotid pulses Cardiac: Other (Irregularly irregular) Lungs: Normal Breath Sounds, No Wheeze, Rales, Rhonchi Neuro: Alert and responsive, No focal deficits noted Abdomen: Soft, Non-Tender Skin: No rashes noted on visualized skin Musculoskeletal: No Chest Wall Tenderness Extremities: No Clubbing, No Cyanosis, No Edema, Other (2/4+ pulses in RLE, 1/4 + Pulses LLE. ) Results 12/09/16 01:38 12/09/16 01:38 Lab Results 12/08/16 12/08/16 12/09/16 09:16 18:17 01:38 WBC 9.1 Hgb 12.5 L Hct 40.2 Plt Count 268 APTT 58.7 H 54.0 H Sodium Potassium Chloride Carbon Dioxide BUN Creatinine Glucose Calcium Magnesium 12/09/16 12/09/16 01:38 01:38 WBC Hgb Hct Plt Count APTT 94.1 H D Sodium 138 Potassium 4.2 Chloride 107 Carbon Dioxide 22 BUN 36 H Creatinine 2.21 H Glucose 88 Calcium 9.2 Magnesium 1.4 L - Imaging and Cardiology Stress Test: report reviewed Echo: report reviewed Cardiac cath: report reviewed - EKG Interpretation EKG results cardiology: personally reviewed (Atrial flutter with RVR, HR 145, incomplete RBBB. Compared to previous EKG from 10/2016 patient had baseline EKG changes in leads V2-V5 that are more pronounced with current EKG in the setting of tachycardia.) Consult Discharge Plan - Plan Referrals: Noel Petty DO [Primary Care Provider] -
[2016-12-09] MEDS ORDERED: Magnesium Sulfate 2 GM in D5% in Water 100 ML IVPB ONE (10:16)
--- NOTE | 2016-12-09 13:33 | Internal Med Progress Note ---
Date of Encounter: 12/09/16 Time of Encounter: 10:30 - Assessment and plan (1) Atrial flutter with rapid ventricular response Current Visit: Yes Status: Acute Assessment and plan: new onset afib. cHADs-VASC score is 4. 6/: Echocardiogram showed LVEF 65%, mild concentric LVH, mild LV diastolic dysfunction Appreciate cardiology input. HR still not controlled. plan for DCCV/ANTONINO today. continue cardizem drip ,heparin drip and metoprolol home dose. nurse monitoring (2) Acute worsening of stage 3 chronic kidney disease Current Visit: Yes Status: Acute Assessment and plan: could be secondary to dehydration +/- cardiorenal from afib rvr. BUN and cr are trending up. Start gentle Iv fluid hydration. repeat BMP in the afternoon. Good urine output. (3) Elevated troponin Current Visit: No Status: Acute Assessment and plan: due to demand ischemia (4) CAD (coronary artery disease) Current Visit: No Status: Chronic Assessment and plan: stable. continue home meds. Qualifiers: Coronary Disease-Associated Artery/Lesion type: [place] artery [place] vs. transplanted heart: [place] heart Associated angina: angina presence unspecified Qualified Code(s): I25.10 - Atherosclerotic heart disease of [place] coronary artery without angina pectoris (5) HTN (hypertension) Current Visit: No Status: Chronic Assessment and plan: controlled. Qualifiers: Hypertension type: essential hypertension Qualified Code(s): I10 - Essential (primary) hypertension (6) MICHAEL (obstructive sleep apnea) Current Visit: No Status: Chronic (7) Hypomagnesemia Current Visit: Yes Status: Resolved Assessment and plan: replete (8) Hypokalemia Current Visit: Yes Status: Resolved Assessment and plan: replete - Subjective Interval history: Patient denies any chest pain, shortness of breath or dizziness. - Constitutional Vitals: Temp Pulse Resp BP Pulse Ox 98.4 F 139 20 111/86 97 12/09/16 12:30 12/09/16 12:30 12/09/16 12:30 12/09/16 12:30 12/09/16 12:30 General appearance: Present: cooperative, A&O X 3, pleasant, no acute distress, answers questions appropriately - Neck Neck exam general surgery: Present: supple, trachea midline. Absent: lymphadenopathy - Respiratory Respiratory exam: Present: CTAB - Cardiovascular Cardiovascular exam: Present: RRR - GI/Abdominal GI/Abdominal exam: Present: normal bowel sounds, soft. Absent: distended, tenderness - Extremities Exam Extremities exam: Absent: pedal edema - Back Exam Back exam: Absent: CVA tenderness (L), CVA tenderness (R) - Neurological Exam Neurological exam: Present: alert, oriented X3, no focal deficits, strengths equal and symetr throughout. Absent: facial droop, speech deficit - Skin Skin exam: Absent: rash Internal Medicine: Result - Labs CBC & Chem 7: 12/09/16 01:38 12/09/16 01:38 Labs: Short CBC 12/09/16 Range/Units 01:38 WBC 9.1 (4.3-11.1) K/mcL Hgb 12.5 L (12.9-16.9) g/dL Hct 40.2 (37.5-50.1) % Plt Count 268 (140-400) K/mcL Neutrophils # 5.5 (1.6-8.9) K/mcL BMP 12/09/16 01:38 Sodium 138 Potassium 4.2 Chloride 107 Carbon Dioxide 22 BUN 36 H Creatinine 2.21 H Glucose 88 Calcium 9.2 - ABG Interpretation ABG results: PT/INR, D-dimer PT 12.4 Seconds (9.4-12.1) H 12/06/16 13:45 Consult Discharge Plan - Plan Referrals: Noel Petty DO [Primary Care Provider] - 12/18/16 10:00 am ()
[2016-12-09 17:48] LABS: Calcium 9.1 mg/dL (8.6-10.8); Potassium 4.3 mEq/L (3.5-4.5)
[2016-12-09] MEDS: dilTIAZem HCl 60 MG TABLET PO SCH (23:59)
[2016-12-10 06:11] LABS: Basophils % 0.5 %; Eosinophils # 0.1 K/mcL (0.0-0.6); Eosinophils % 1.7 %; Hematocrit 37.6 % (37.5-50.1); Immature Granulocytes % 0.1 % (0-4); Lymphocytes # 2.4 K/mcL (0.6-4.6); Lymphocytes % 29.7 %; Mean Corpuscular HGB Conc 31.9 g/dL (31.6-35.5); Mean Corpuscular Hemoglobin 26.6 pg (28.0-33.3); Mean Corpuscular Volume 83.4 fL (83.0-100.0); Mean Platelet Volume 11.4 fL (9.4-12.4); Monocytes # 0.6 K/mcL (0.0-1.3); Monocytes % 7.6 %; Neutrophils # 4.9 K/mcL (1.6-8.9); Platelet Count 231 K/mcL (140-400); Red Blood Count 4.51 M/mcL (4.19-5.50); Red Cell Distribution Width 17.2 % (11.5-14.5); Segmented Neutrophils % 60.4 %
[2016-12-10 06:21] LABS: Calcium 9.2 mg/dL (8.6-10.8); Magnesium 1.5 mg/dL (1.6-2.6); Potassium 4.5 mEq/L (3.5-4.5)
[2016-12-10] MEDS: Aspirin Enteric Coated 81 MG Tablet PO SCH (08:11)
[2016-12-10] MEDS: Metoprolol XL (24 HR) Succ 25 MG TAB.ER.24H PO SCH (08:11)
[2016-12-10] MEDS: dilTIAZem HCl 60 MG TABLET PO SCH ×3 (08:11→22:01)
--- NOTE | 2016-12-10 08:54 | Event Note ---
Date of Encounter: 12/10/16 Time of Encounter: 08:30 - Cardiology Event Note Patient with a.flutter with RVR, difficult to rate control due to labile blood pressures. HR currently 130-140s. BP 100-110s systolic. However, BP dropped to 80 systolic this am with cardizen drip at 20mg/hour. Cardizem now at 10mg/hour. Plan for ANTONINO/Cardioversion today due to difficult to rate control. Milligan check for eliquis sent to pharmacy. Risk versus benefits of ANTONINO and cardioversion explained to patient and family. Patient agreeable to proceed with ANTONINO and cardioversion. Mg today 1.5, replaced. Further recommendations pending ANTONINO/ CArdioversion.
[2016-12-10] MEDS ORDERED: Magnesium Sulfate 2 GM in D5% in Water 100 ML IVPB ONE (08:55)
[2016-12-10] MEDS ORDERED: Tetracaine/Benzocaine/Butamben 200MG/SPRAY (100SPY/BOT) MM ONE (09:19)
[2016-12-10] MEDS ORDERED: 0.9 % Sodium Chloride 500 ML IVC ONE (09:19)
[2016-12-10] MEDS: *HR* Midazolam HCl 5 MG/5 ML VIAL IVP PRN ×2 (10:30→10:35)
[2016-12-10] MEDS: *HR* FentaNYL (PF) 100 MCG/2 ML VIAL IVP PRN ×2 (10:30→10:35)
[2016-12-10] MEDS: Heparin 25,000 UNIT/500 ML D5W 25,000 UNIT/500 ML MLS IVC SCH (12:15)
--- NOTE | 2016-12-10 15:14 | Internal Med Progress Note ---
Date of Encounter: 12/10/16 Time of Encounter: 14:00 - Assessment and plan (1) Epigastric pain Current Visit: Yes Status: Acute Assessment and plan: Resolved now. Patient had EGD on last admission recently. Results is unremarkable. (2) HTN (hypertension) Current Visit: No Status: Chronic Assessment and plan: controlled. Qualifiers: Hypertension type: essential hypertension Qualified Code(s): I10 - Essential (primary) hypertension (3) Dyspepsia Current Visit: No Status: Acute Assessment and plan: We will continue PPI and Carafate. (4) Elevated troponin Current Visit: No Status: Acute Assessment and plan: due to demand ischemia (5) Atrial flutter with rapid ventricular response Current Visit: Yes Status: Acute Assessment and plan: new onset afib. cHADs-VASC score is 4. 6/: Echocardiogram showed LVEF 65%, mild concentric LVH, mild LV diastolic dysfunction Appreciate cardiology input. HR controlled after cardiac conversion. Patient is on heparin drip. Need a long-term anticoagulation upon discharge. The patient is at high risk because he is on heparin drip. Need to closely monitoring (6) DVT prophylaxis Current Visit: Yes Status: Acute Assessment and plan: Patient is on heparin drip - Time Spent With Patient Greater than 35 minutes - Subjective Interval history: Patient came with epigastric pain, a flutter with a rapid ventricular response. I saw and examined patient after cardiac conversion. Patient feels fine. Denies chest pain, shortness of breath, abdominal pain. Heart rate 47. BP is stable. Will continue current treatment. Closely monitor patient. - Constitutional Vitals: Temp Pulse Resp BP Pulse Ox 97.9 F 47 18 103/60 98 12/10/16 12:00 12/10/16 12:00 12/10/16 12:00 12/10/16 12:12/10/16 12:00 General appearance: Present: cooperative, A&O X 3, pleasant, no acute distress, answers questions appropriately - Head Head exam: Present: atraumatic, normocephalic - Eye Eye exam: Present: PERRL, conjuntiva pink, sclera anicteric Pupils: Present: PERRL - Neck Neck exam general surgery: Present: supple, trachea midline. Absent: lymphadenopathy - Respiratory Respiratory exam: Present: CTAB. Absent: accessory muscle use, rales, rhonchi, wheezes - Cardiovascular Cardiovascular exam: Present: RRR, +S1, +S2. Absent: diastolic murmur, gallop, rubs, systolic murmur - GI/Abdominal GI/Abdominal exam: Present: normal bowel sounds, soft, no peritoneal signs. Absent: distended, tenderness - Extremities Exam Extremities exam: Present: warm, radial pulses palpable and symetrical. Absent : calf tenderness, cyanotic, pedal edema - Neurological Exam Neurological exam: Present: CN II-XII intact, oriented X3, no focal deficits. Absent: pronater drift, facial droop, speech deficit - Skin Skin exam: Present: dry, intact Internal Medicine: Result - Labs CBC & Chem 7: 12/10/16 05:19 12/10/16 05:19 Labs: Short CBC 12/10/16 Range/Units 05:19 WBC 8.2 (4.3-11.1) K/mcL Hgb 12.0 L (12.9-16.9) g/dL Hct 37.6 (37.5-50.1) % Plt Count 231 (140-400) K/mcL Neutrophils # 4.9 (1.6-8.9) K/mcL BMP 12/09/16 12/10/16 17:13 05:19 Sodium 137 137 Potassium 4.3 4.5 Chloride 108 107 Carbon Dioxide 24 21 BUN 32 H 34 H Creatinine 2.04 H 1.87 H Glucose 117 H 88 Calcium 9.1 9.2 - ABG Interpretation ABG results: PT/INR, D-dimer PT 12.4 Seconds (9.4-12.1) H 12/06/16 13:45 Consult Discharge Plan - Plan Referrals: Noel Petty DO [Primary Care Provider] - 12/18/16 10:00 am ()
--- NOTE | 2016-12-10 15:42 | Event Note ---
Date of Encounter: 12/10/16 Time of Encounter: 15:40 - Cardiology Event Note Patient is status post ANTONINO/Cardioversion. Patient in junctional bradycardia. ECG ordered. Repeat ECG ordered in am. Eliquis noted to be $88/month, unaffordable for patient. Patient agreeable for coumadin. Will order coumadin pharmacy to dose while inpatient. Will continue to follow.
[2016-12-10 17:37] LABS: Prothrombin Time 10.8 Seconds (9.4-12.1)
--- NOTE | 2016-12-10 17:47 | Electrocardiograph Report ---
[address] [address] Test Date: 2016-12-09 Pat Name: Gonzales Mazariegos Department: 110 Room: 2N07 Gender: M Manager Credit: [id number] : 1940 Requested By: Cynthia Horvath Order Number: [id number] Reading MD: Nela Underwood Measurements Intervals [place] Rate: 139 P: -48 LA: 167 QRS: -52 QRSD: 111 T: 61 QT: 278 QTc: 359 Interpretive Statements CONSIDER ATRIAL FLUTTER WITH RVR INCOMPLETE RIGHT BUNDLE BRANCH BLOCK POSSIBLE LEFT VENTRICULAR HYPERTROPHY ST DEVIATION AND MODERATE T-WAVE ABNORMALITY, CONSIDER ANTEROLATERAL ISCHEMIA Electronically Signed On 12-10-2016 17:45:19 EDT by Nela Underwood
[2016-12-10] MEDS ORDERED: Warfarin perPT PO PRN (18:00)
--- NOTE | 2016-12-10 18:10 | Electrocardiograph Report ---
[place] [address] Test Date: 2016-12-10 Pat Name: Gonzales Mazariegos Department: 110 Room: 2N07 Gender: M Care Worker: [id number] : [id number] Requested By: Cynthia Horvath Order Number: [id number] Reading MD: Adina Taylor Measurements Intervals [place] Rate: 140 P: 110 TN: 137 QRS: -57 QRSD: 138 T: 119 QT: 286 QTc: 368 Interpretive Statements SINUS TACHYCARDIA, POSSIBLE ATRIAL FLUTTER RIGHT BUNDLE BRANCH BLOCK LEFT ANTERIOR FASCICULAR BLOCK LEFT VENTRICULAR HYPERTROPHY AND ST-T CHANGE Electronically Signed On 12-10-2016 18:08:37 EDT by Adina Taylor
[2016-12-10] MEDS: Sucralfate 1 GM TABLET PO SCH ×2 (21:39→21:52)
[2016-12-10] MEDS: *HR* Warfarin 5 MG TABLET PO SCH (22:01)
[2016-12-11 06:14] LABS: Basophils % 0.3 %; Eosinophils # 0.1 K/mcL (0.0-0.6); Eosinophils % 1.4 %; Hemoglobin 10.8 g/dL (12.9-16.9); Immature Granulocytes % 0.3 % (0-4); Lymphocytes # 1.9 K/mcL (0.6-4.6); Lymphocytes % 26.7 %; Mean Corpuscular HGB Conc 31.8 g/dL (31.6-35.5); Mean Corpuscular Hemoglobin 26.8 pg (28.0-33.3); Mean Corpuscular Volume 84.4 fL (83.0-100.0); Mean Platelet Volume 10.7 fL (9.4-12.4); Monocytes # 0.5 K/mcL (0.0-1.3); Monocytes % 7.2 %; Neutrophils # 4.6 K/mcL (1.6-8.9); Platelet Count 216 K/mcL (140-400); Red Blood Count 4.03 M/mcL (4.19-5.50); Red Cell Distribution Width 17.2 % (11.5-14.5); Segmented Neutrophils % 64.1 %
[2016-12-11 06:21] LABS: Prothrombin Time 11.1 Seconds (9.4-12.1)
[2016-12-11 06:28] LABS: Calcium 8.7 mg/dL (8.6-10.8); Magnesium 1.6 mg/dL (1.6-2.6); Potassium 4.6 mEq/L (3.5-4.5)
[2016-12-11] MEDS: Sucralfate 1 GM TABLET PO SCH ×6 (06:45→20:43)
[2016-12-11] MEDS: dilTIAZem HCl 60 MG TABLET PO SCH (07:51)
[2016-12-11] MEDS: Aspirin Enteric Coated 81 MG Tablet PO SCH (07:51)
[2016-12-11] MEDS: Metoprolol XL (24 HR) Succ 25 MG TAB.ER.24H PO SCH (07:51)
[2016-12-11] MEDS: Fenofibrate 54 MG TABLET PO SCH ×2 (07:53→19:54)
[2016-12-11] MEDS: Finasteride 5 MG TABLET PO SCH ×2 (07:54→19:53)
--- NOTE | 2016-12-11 09:47 | Cardiology Progress Note ---
Date of Encounter: 12/11/16 Time of Encounter: 09:30 Assessment and Plan (1) Atrial flutter with rapid ventricular response Current Visit: Yes Status: Acute Per cardiology: -Atrial flutter with RVR. Timing of onset unknown. he is asymptomatic. EKG one month ago showed SR with PAC. -Previous cardiac testing: -TTE 11/14/16: EF 65%, mild LVH, normal RV, no significant valvular disease, no pulmonary hypertension. -Pharmacologic Stress test 01/03/15: Negative for ischemia or infarct. Gated EF 70%. -24 hour telemetry review shows avg HR 55, sinus bradycardia. -TSH normal. -In regards to anticoagulation CHADs vasc score = 4 (age, HTN, CAD). Currently on heparin gtt. Coumadin was started yesterday. -ECG today with sinus bradycardia, HR 55. -Mg today 1.6. -Will decrease metoprolol to 12.5 BID. -WIll stop cardizem. -Coumadin clinic referral sent to cardiology office. [place] [facility]ology will monitor INR/coumadin dosing until seen by coumadin clinic. -Will defer discontinuation of heparin drip to hospitalist team. No need for bridging to coumadin from cardiology standpoint. -Cardiology will sign off and will follow in outpatient setting. Follow up set. (2) Elevated troponin Current Visit: No Status: Acute Per cardiology: -Troponin 0.16, 0.14, 0.19. -ECG with atrial flutter. -Patient being started on heparin drip. -Admits to pain, however states starts in abdomen and travels to chest. States pain is relieved by omeprazole. Patient denies pain today. -Echo 11/14/16 with LVEF 65%, mild concentric LVH, mild diastolic dysufnction. -DO not suspect NSTEMI, suspect demand ischemia related to atrial flutter with RVR. No cardiac rehab warranted. (3) CAD (coronary artery disease) Current Visit: No Status: Chronic Per cardiology: -Known CAD with [facility] 10/2013 with 50% mid LAD diffusely diseased, 30% proximal circumflex, 50% mid circ small vessel, 50% OM1, 60% proximal RCA with FFR 0.95, 40% distal RCA, 40% PDA, 40% PL. -On asa and beta violet. -Intolerant to statins. -Will continue to monitor. Qualifiers: Coronary Disease-Associated Artery/Lesion type: [place] artery [place] vs. transplanted heart: [place] heart Associated angina: angina presence unspecified Qualified Code(s): I25.10 - Atherosclerotic heart disease of [place] coronary artery without angina pectoris (4) Chest pain Current Visit: Yes Status: Acute Per cardiology: -Patient admits to pain that starts in abdomen and travels to chest. -Pateint states he has had this pain intermittently for 2 months. -Pateint states pain is relieved by omeprazole. -Pateint denies pain today. Discussion w patient/family: The assessment and plan as outlined above was discussed with the patient and family who expressed understanding and agreement. All questions were answered. Thank you for involving us in the care of your patient. Please call with any questions. Discussed and reviewed with . Subjective Principal diagnosis: atrial flutter Interval history: Patient states he feels better this morning. Patient states he is anxious to go home. Objective Vital Signs, Last 4 Hours Temp Pulse Resp BP Pulse Ox 12/11/16 08:00 98.0 F 65 18 151/90 99 General: Conversant, No Apparent Distress HEENT: Atraumatic, Normocephaly, Mucus Membranes Moist Neck: No JVD, Normal carotid pulses Cardiac: Reg Rate and Rhythm, Normal S1 and S2, No Murmur Lungs: Normal Breath Sounds, No Wheeze, Rales, Rhonchi Neuro: Alert and responsive, No focal deficits noted Abdomen: Soft, Non-Tender Skin: No rashes noted on visualized skin Musculoskeletal: No Chest Wall Tenderness Extremities: No Clubbing, No Cyanosis, No Edema, Normal Pulses Results 12/11/16 05:37 12/11/16 05:37 Lab Results Active Medications Acetaminophen (Tylenol) 650 mg PO Q6HR PRN PRN Reason: Mild Pain (1-3) Stop: 06/07/17 16:57 Aspirin (Aspirin Ec) 81 mg PO DAILY THELMA Stop: 06/08/17 09:01 Last Admin: 12/11/16 07:51 Dose: 81 mg Atorvastatin Calcium (Lipitor) 40 mg PO HS THELMA Stop: 06/07/17 21:01 Last Admin: 12/10/16 21:38 Dose: 40 mg Dicyclomine HCl (Bentyl) 10 mg PO TID PRN PRN Reason: Pain Stop: 06/07/17 17:06 Fenofibrate (Tricor) 162 mg PO DAILY [facility] Stop: 06/08/17 09:01 Last Admin: 12/11/16 07:53 Dose: 162 mg Finasteride (Proscar) 5 mg PO DAILY THELMA PRN Reason: Protocol Stop: 06/08/17 09:01 Last Admin: 12/11/16 07:54 Dose: 5 mg Guaifenesin (Mucinex) 600 mg PO BID [facility] Stop: 06/09/17 09:31 Last Admin: 12/11/16 07:53 Dose: 600 mg Heparin Sodium (Porcine) (Heparin) 5,200 unit 70 unit/kg (5200 unit) IVP Q6HR PRN PRN Reason: SEE COMMENTS Stop: 06/07/17 15:44 Heparin Sodium (Porcine) (Heparin) 2,600 unit 35 unit/kg (2600 unit) IVP Q6H PRN PRN Reason: SEE COMMENTS Stop: 06/07/17 15:44 Last Admin: 12/08/16 19:42 Dose: 2,600 unit Heparin Sodium/Dextrose (Heparin 25,000 Unit/500 Ml D5w) 25,000 unit in 500 mls @ 20.956 mls/hr IVC .[id number] THELMA; 14 UNIT/KG/HR PRN Reason: Protocol Stop: 06/07/17 15:46 Last Titration: 12/11/16 07:06 Dose: 10 unit/kg/hr, 14.969 mls/hr Sodium Chloride (0.45% Sodium Chloride 1000 Ml 1000 Ml) 1,000 mls @ 50 mls/hr IVC .Q20H THELMA Stop: 06/10/17 09:16 Last Admin: 12/11/16 03:05 Dose: 50 mls/hr Ipratropium Delight (Atrovent Neb) 0.5 mg IH [id number] PRN PRN Reason: Tachyarrhythmias Stop: 06/08/17 10:01 Last Admin: 12/08/16 06:53 Dose: 0.5 mg Levalbuterol HCl (Xopenex) 0.63 mg IH [id number] PRN PRN Reason: Tachyarrhythmias Stop: 06/08/17 10:01 Last Admin: 12/08/16 06:53 Dose: 0.63 mg Levothyroxine Sodium (Synthroid) 50 mcg PO 0630 [facility] Stop: 06/08/17 06:31 Last Admin: 12/11/16 06:45 Dose: 50 mcg Metoprolol Tartrate (Lopressor) 12.5 mg PO BID [facility] Stop: 06/12/17 21:01 Naloxone HCl (Narcan) 0.4 mg IVP Q2MIN PRN PRN Reason: Opioid Reversal Stop: 06/07/17 16:57 Nitroglycerin (Nitroglycerin) 0.4 mg SL Q5M PRN PRN Reason: Chest Pain Stop: 06/07/17 17:06 Omeprazole (Prilosec) 40 mg PO DAILY@0730 THELMA PRN Reason: Protocol Stop: 06/08/17 07:31 Last Admin: 12/11/16 06:46 Dose: 40 mg Ondansetron HCl (Zofran) 4 mg IVP Q8HR PRN PRN Reason: Nausea And Vomiting Stop: 06/07/17 16:57 Potassium Chloride (Potassium Chloride) 20 meq PO DAILY [facility] Stop: 06/08/17 09:01 Last Admin: 12/10/16 08:11 Dose: 20 meq Sucralfate (Carafate) 1 gm PO QIDAC [facility] Stop: 06/07/17 22:01 Last Admin: 12/11/16 06:45 Dose: 1 gm Warfarin Sodium (Coumadin Perpt) 1 each PO DAILY@1800 PRN PRN Reason: SEE COMMENTS Stop: 06/11/17 18:01 Warfarin Sodium (Coumadin) 5 mg PO DAILY@1800 [facility] Stop: 06/11/17 19:11 Last Admin: 12/10/16 22:01 Dose: 5 mg Laboratory Tests 12/11/16 12/11/16 05:37 05:37 Hgb 10.8 L Potassium 4.6 H Creatinine 1.81 H Magnesium 1.6 - Imaging and Cardiology Chest Xray: report reviewed Echo: report reviewed - EKG Interpretation EKG results cardiology: personally reviewed (ECG 12/11/16 with sinus bradycardia , HR 56.), other (Telemetry reviewed with average HR previous 12 hours noted to be 55, sinus bradycardia. PVCS and PACs noted. 1 6 beat run of atrial tachycardia noted.) Consult Discharge Plan - Plan Referrals: Noel Petty DO [Primary Care Provider] - 12/18/16 10:00 am ()
--- NOTE | 2016-12-11 13:48 | Electrocardiograph Report ---
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
--- NOTE | 2016-12-11 13:48 | Electrocardiograph Report ---
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
--- NOTE | 2016-12-11 14:05 | Electrocardiograph Report ---
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
--- NOTE | 2016-12-11 14:18 | Electrocardiograph Report ---
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
--- NOTE | 2016-12-11 15:19 | Internal Med Progress Note ---
Date of Encounter: 12/11/16 Time of Encounter: 10:00 - Assessment and plan (1) Epigastric pain Current Visit: Yes Status: Acute Assessment and plan: Resolved now. Patient had EGD on last admission recently. Results is unremarkable. (2) HTN (hypertension) Current Visit: No Status: Chronic Assessment and plan: controlled. Qualifiers: Hypertension type: essential hypertension Qualified Code(s): I10 - Essential (primary) hypertension (3) Dyspepsia Current Visit: No Status: Acute Assessment and plan: We will continue PPI and Carafate. (4) Elevated troponin Current Visit: No Status: Acute Assessment and plan: due to demand ischemia (5) Atrial flutter with rapid ventricular response Current Visit: Yes Status: Acute Assessment and plan: new onset afib. cHADs-VASC score is 4. 6/: Echocardiogram showed LVEF 65%, mild concentric LVH, mild LV diastolic dysfunction Appreciate cardiology input. HR controlled after cardiac conversion. Patient is on heparin drip. Need a long-term anticoagulation upon discharge. Transit to coumadin. The patient is at high risk because he is on heparin drip. Need to closely monitoring (6) DVT prophylaxis Current Visit: Yes Status: Acute Assessment and plan: Patient is on heparin drip - Time Spent With Patient Greater than 35 minutes - Subjective Interval history: Patient came with epigastric pain, a flutter with a rapid ventricular response. I saw and examined patient today. Patient feels fine. Denies chest pain, shortness of breath, abdominal pain. Heart rate 47, sinus rhythm. BP is stable. Patient cannot afford Eliquis, on heparin drip to Coumadin transition. Continue closely monitor patient. - Constitutional Vitals: Temp Pulse Resp BP Pulse Ox 98.2 F 43 16 112/61 99 12/11/16 11:57 12/11/16 11:57 12/11/16 11:57 12/11/16 11:57 12/11/16 11:57 General appearance: Present: cooperative, A&O X 3, pleasant, no acute distress, answers questions appropriately - Head Head exam: Present: atraumatic, normocephalic - Eye Eye exam: Present: PERRL, conjuntiva pink, sclera anicteric Pupils: Present: PERRL - Neck Neck exam general surgery: Present: supple, trachea midline. Absent: lymphadenopathy - Respiratory Respiratory exam: Present: CTAB. Absent: accessory muscle use, rales, rhonchi, wheezes - Cardiovascular Cardiovascular exam: Present: RRR, +S1, +S2. Absent: diastolic murmur, gallop, rubs, systolic murmur - GI/Abdominal GI/Abdominal exam: Present: normal bowel sounds, soft, no peritoneal signs. Absent: distended, tenderness - Extremities Exam Extremities exam: Present: warm, radial pulses palpable and symetrical. Absent : calf tenderness, cyanotic, pedal edema - Neurological Exam Neurological exam: Present: CN II-XII intact, oriented X3, no focal deficits. Absent: pronater drift, facial droop, speech deficit - Skin Skin exam: Present: dry, intact Internal Medicine: Result - Labs CBC & Chem 7: 12/11/16 05:37 12/11/16 05:37 Labs: Short CBC 12/11/16 Range/Units 05:37 WBC 7.2 (4.3-11.1) K/mcL Hgb 10.8 L (12.9-16.9) g/dL Hct 34.0 L (37.5-50.1) % Plt Count 216 (140-400) K/mcL Neutrophils # 4.6 (1.6-8.9) K/mcL BMP 12/11/16 05:37 Sodium 138 Potassium 4.6 H Chloride 109 Carbon Dioxide 23 BUN 35 H Creatinine 1.81 H Glucose 80 Calcium 8.7 - ABG Interpretation ABG results: PT/INR, D-dimer PT 11.1 Seconds (9.4-12.1) 12/11/16 05:37 Consult Discharge Plan - Plan Referrals: Noel Petty DO [Primary Care Provider] - 12/18/16 10:00 am ()
[2016-12-11] MEDS: *HR* Warfarin 5 MG TABLET PO SCH (16:28)
--- NOTE | 2016-12-11 17:36 | Electrocardiograph Report ---
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
[2016-12-11] MEDS: Heparin 25,000 UNIT/500 ML D5W 25,000 UNIT/500 ML MLS IVC SCH ×2 (20:44→20:54)
[2016-12-12 04:31] LABS: INR 1.1; Prothrombin Time 11.6 Seconds (9.4-12.1)
[2016-12-12 04:34] LABS: Activated Partial Thrombo Time 54.9 Seconds (26.0-36.0); Basophils % 0.5 %; Eosinophils # 0.1 K/mcL (0.0-0.6); Eosinophils % 1.4 %; Hematocrit 33.6 % (37.5-50.1); Hemoglobin 10.6 g/dL (12.9-16.9); Immature Granulocytes % 0.3 % (0-4); Lymphocytes # 1.7 K/mcL (0.6-4.6); Lymphocytes % 26.4 %; Mean Corpuscular HGB Conc 31.5 g/dL (31.6-35.5); Mean Corpuscular Hemoglobin 26.6 pg (28.0-33.3); Mean Corpuscular Volume 84.4 fL (83.0-100.0); Mean Platelet Volume 11.2 fL (9.4-12.4); Monocytes # 0.5 K/mcL (0.0-1.3); Monocytes % 7.4 %; Platelet Count 207 K/mcL (140-400); Red Blood Count 3.98 M/mcL (4.19-5.50); Red Cell Distribution Width 17.2 % (11.5-14.5)
[2016-12-12 04:56] LABS: Calcium 8.8 mg/dL (8.6-10.8); Magnesium 1.3 mg/dL (1.6-2.6); Potassium 4.2 mEq/L (3.5-4.5)
[2016-12-12] MEDS: *HR* Heparin 5,000 UNIT/ML VIAL IVP PRN ×2 (06:08→21:31)
[2016-12-12] MEDS: Fenofibrate 54 MG TABLET PO SCH (08:10)
[2016-12-12] MEDS: Aspirin Enteric Coated 81 MG Tablet PO SCH (08:10)
[2016-12-12] MEDS: Sucralfate 1 GM TABLET PO SCH ×4 (08:10→20:46)
[2016-12-12] MEDS: Finasteride 5 MG TABLET PO SCH (08:11)
[2016-12-12] MEDS: Magnesium Sulfate 2 GM in D5% in Water 100 ML IVPB SCH ×2 (08:45→19:04)
[2016-12-12] MEDS ORDERED: Metoprolol XL (24 HR) Succ 25 MG TAB.ER.24H PO SCH (09:00)
--- NOTE | 2016-12-12 10:46 | Cardiology Progress Note ---
Date of Encounter: 12/12/16 Time of Encounter: 10:00 Assessment and Plan (1) Atrial flutter with rapid ventricular response Current Visit: Yes Status: Acute Per cardiology: Atrial flutter with RVR. Timing of onset unknown. TSH normal. Status post ANTONINO/ DC cardioversion on December 10, 2016 with successful conversion to sinus rhythm. Telemetry reviewed overnight with average heart rate last 12 hours 65, sinus bradycardia to sinus rhythm. A few pauses noted mainly nocturnal, however 4.2 second pulse noted around 7 AM this morning. Reviewed and discussed with Dr. Houston and Dr. Wiliam Taylor, recommendations to proceed with 4 week ECAT Monitor at time of discharge. No pacemaker clinically warranted at this time. Cardiology will sign off, reconsult as needed, follow-up scheduled. In regards to anticoagulation CHADs vasc score = 4 (age, HTN, CAD). Currently on heparin gtt. Coumadin was started 12/10/16-- INR 1.1. Target INR 2.0-3.0. Radius notes reviewed and shows -- Coumadin clinic referral sent to cardiology office. [facility] cardiology will monitor INR/coumadin dosing until seen by coumadin clinic. Per discussion with Dr. Houston, recommend heparin drip bridging until INR therapeutic. Patient denies any active bleeding or blood loss. (2) Hypomagnesemia Current Visit: Yes Status: Acute Per Cardiology: Magnesium noted to be 1.3, being replaced by primary service. Recommend continue to monitor. Keep mag around 2.0.. (3) Elevated troponin Current Visit: No Status: Acute Per cardiology: Troponin 0.16, 0.14, 0.19 in setting of a flutter with RVR. Chest pain-free. TTE 11/14/16: EF 65%, mild LVH, normal RV, no significant valvular disease, no pulmonary hypertension. Pharmacologic Stress test 01/03/15: Negative for ischemia or infarct. Gated EF 70%. (4) CAD (coronary artery disease) Current Visit: No Status: Chronic Per cardiology: Known CAD with [facility] 10/2013 with 50% mid LAD diffusely diseased, 30% proximal circumflex, 50% mid circ small vessel, 50% OM1, 60% proximal RCA with FFR 0.95, 40% distal RCA, 40% PDA, 40% PL. On asa. Beta violet currently on hold. Previous records reviewed and shows, intolerant to statins-- currently on statin , recommend monitor closely. Qualifiers: Coronary Disease-Associated Artery/Lesion type: [place] artery [place] vs. transplanted heart: [place] heart Associated angina: angina presence unspecified Qualified Code(s): I25.10 - Atherosclerotic heart disease of [place] coronary artery without angina pectoris Discussion w patient/family: The assessment and plan as outlined above was discussed with the patient and/or family members who expressed understanding and agreement. All questions were answered. Thank you for involving us in the care of your patient. Please call with any questions. Subjective Principal diagnosis: atrial flutter Interval history: Patient denies any chest pain or palpitations. Reports chronic dizziness with position changes. Denies any syncopal events overnight. Denies any active bleeding or blood loss. Objective Vital Signs, Last 4 Hours Temp Pulse Resp BP Pulse Ox 12/12/16 08:30 97.6 F 56 18 135/72 98 12/12/16 07:38 97.6 F 56 18 135/72 98 General: Conversant, No Apparent Distress HEENT: Atraumatic, Normocephaly, Mucus Membranes Moist Cardiac: Reg Rate and Rhythm, Normal S1 and S2, No Murmur Lungs: Normal Breath Sounds, No Wheeze, Rales, Rhonchi Neuro: Alert and responsive, No focal deficits noted Skin: No rashes noted on visualized skin Musculoskeletal: No Chest Wall Tenderness Extremities: No Clubbing, No Cyanosis, No Edema Results 12/12/16 03:26 12/12/16 03:26 Lab Results Laboratory Tests 12/06/16 12/09/16 12/12/16 13:45 01:38 03:26 Hgb Hct INR 1.1 Creatinine 1.81 H 2.21 H Magnesium 12/12/16 12/12/16 03:26 03:26 Hgb 10.6 L Hct 33.6 L INR Creatinine 1.96 H Magnesium 1.3 L ITS Impressions Chest X-Ray 12/06/16 13:38 IMPRESSION: Stable borderline cardiomegaly. Minimal pulmonary vascular congestion. D/ / Abhishek Royal MD / Abhishek Royal MD Interpreting Provider: Abhishek Royal MD Active Medications Acetaminophen (Tylenol) 650 mg PO Q6HR PRN PRN Reason: Mild Pain (1-3) Stop: 06/07/17 16:57 Aspirin (Aspirin Ec) 81 mg PO DAILY [facility] Stop: 06/08/17 09:01 Last Admin: 12/12/16 08:10 Dose: 81 mg Atorvastatin Calcium (Lipitor) 40 mg PO HS [facility] Stop: 06/07/17 21:01 Last Admin: 12/11/16 20:43 Dose: 40 mg Dicyclomine HCl (Bentyl) 10 mg PO TID PRN PRN Reason: Pain Stop: 06/07/17 17:06 Fenofibrate (Tricor) 162 mg PO DAILY [facility] Stop: 06/08/17 09:01 Last Admin: 12/12/16 08:10 Dose: 162 mg Finasteride (Proscar) 5 mg PO DAILY [facility] PRN Reason: Protocol Stop: 06/08/17 09:01 Last Admin: 12/12/16 08:11 Dose: 5 mg Guaifenesin (Mucinex) 600 mg PO BID [facility] Stop: 06/09/17 09:31 Last Admin: 12/12/16 08:11 Dose: 600 mg Heparin Sodium (Porcine) (Heparin) 5,200 unit 70 unit/kg (5200 unit) IVP Q6HR PRN PRN Reason: SEE COMMENTS Stop: 06/07/17 15:44 Heparin Sodium (Porcine) (Heparin) 2,600 unit 35 unit/kg (2600 unit) IVP Q6H PRN PRN Reason: SEE COMMENTS Stop: 06/07/17 15:44 Last Admin: 12/12/16 06:08 Dose: 2,600 unit Heparin Sodium/Dextrose (Heparin 25,000 Unit/500 Ml D5w) 25,000 unit in 500 mls @ 20.956 mls/hr IVC .[id number] [facility]; 14 UNIT/KG/HR PRN Reason: Protocol Stop: 06/07/17 15:46 Last Titration: 12/12/16 06:05 Dose: 12 unit/kg/hr, 17.962 mls/hr Sodium Chloride (0.45% Sodium Chloride 1000 Ml 1000 Ml) 1,000 mls @ 50 mls/hr IVC .Q20H [facility] Stop: 06/10/17 09:16 Last Admin: 12/12/16 06:14 Dose: Not Given Magnesium Sulfate 2 gm/ (Dextrose) 104 mls @ 100 mls/hr IVPB Q12H [facility] Stop: 12/12/16 20:33 Last Admin: 12/12/16 08:45 Dose: 100 mls/hr Ipratropium [place] (Atrovent Neb) 0.5 mg IH [id number] PRN PRN Reason: Tachyarrhythmias Stop: 06/08/17 10:01 Last Admin: 12/08/16 06:53 Dose: 0.5 mg Levalbuterol HCl (Xopenex) 0.63 mg IH [id number] PRN PRN Reason: Tachyarrhythmias Stop: 06/08/17 10:01 Last Admin: 12/08/16 06:53 Dose: 0.63 mg Levothyroxine Sodium (Synthroid) 50 mcg PO 0630 [facility] Stop: 06/08/17 06:31 Last Admin: 12/12/16 06:08 Dose: 50 mcg Naloxone HCl (Narcan) 0.4 mg IVP Q2MIN PRN PRN Reason: Opioid Reversal Stop: 06/07/17 16:57 Nitroglycerin (Nitroglycerin) 0.4 mg SL Q5M PRN PRN Reason: Chest Pain Stop: 06/07/17 17:06 Omeprazole (Prilosec) 40 mg PO DAILY@0730 [facility] PRN Reason: Protocol Stop: 06/08/17 07:31 Last Admin: 12/12/16 08:10 Dose: 40 mg Ondansetron HCl (Zofran) 4 mg IVP Q8HR PRN PRN Reason: Nausea And Vomiting Stop: 06/07/17 16:57 Potassium Chloride (Potassium Chloride) 20 meq PO DAILY [facility] Stop: 06/08/17 09:01 Last Admin: 12/10/16 08:11 Dose: 20 meq Sucralfate (Carafate) 1 gm PO QIDAC [facility] Stop: 06/07/17 22:01 Last Admin: 12/12/16 08:10 Dose: 1 gm Warfarin Sodium (Coumadin Perpt) 1 each PO DAILY@1800 PRN PRN Reason: SEE COMMENTS Stop: 06/11/17 18:01 Warfarin Sodium (Coumadin) 5 mg PO DAILY@1800 [facility] Stop: 06/11/17 19:11 Last Admin: 12/11/16 16:28 Dose: 5 mg - Imaging and Cardiology Chest Xray: report reviewed - EKG Interpretation EKG results cardiology: other (24-hour telemetry reviewed shows average heart rate is 12 hours 65, evidence of 4.2 second pause noted at 7:10 AM, remains overall sinus rhythm) Consult Discharge Plan - Plan Referrals: Noel Petty DO [Primary Care Provider] - 12/18/16 10:00 am ()
--- NOTE | 2016-12-12 13:48 | Electrocardiograph Report ---
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
[2016-12-12 13:54] LABS: Heparin anti-factor XA UFH 0.6 IU/mL (0.30-0.70)
[2016-12-12 13:57] LABS: Activated Partial Thrombo Time 127.4 Seconds (26.0-36.0)
--- NOTE | 2016-12-12 14:33 | Internal Med Progress Note ---
Date of Encounter: 12/12/16 Time of Encounter: 10:00 - Assessment and plan (1) Epigastric pain Current Visit: Yes Status: Acute Assessment and plan: Resolved now. Patient had EGD on last admission recently. Results is unremarkable. (2) HTN (hypertension) Current Visit: No Status: Chronic Assessment and plan: controlled. Qualifiers: Hypertension type: essential hypertension Qualified Code(s): I10 - Essential (primary) hypertension (3) Dyspepsia Current Visit: No Status: Acute Assessment and plan: We will continue PPI and Carafate. Patient has no symptoms at this point. (4) Elevated troponin Current Visit: No Status: Acute Assessment and plan: due to demand ischemia (5) Atrial flutter with rapid ventricular response Current Visit: Yes Status: Acute Assessment and plan: new onset afib. cHADs-VASC score is 4. 6/: Echocardiogram showed LVEF 65%, mild concentric LVH, mild LV diastolic dysfunction Appreciate cardiology input. HR controlled after cardiac conversion. Patient is on heparin drip. Need a long-term anticoagulation upon discharge. Transit to coumadin. The patient is at high risk because he is on heparin drip. Need to closely monitoring (6) DVT prophylaxis Current Visit: Yes Status: Acute Assessment and plan: Patient is on heparin drip - Time Spent With Patient Greater than 35 minutes - Subjective Interval history: Patient came with epigastric pain, a flutter with a rapid ventricular response. I saw and examined patient today. Patient denies chest pain, shortness of breath, abdominal pain. Heart rate 80, sinus rhythm. BP is stable. Cardiology consult appreciated. Patient has cardiac pause, plan to place patient on ECAT monitor upon discharge per cardiology. Continue Coumadin and bridged with heparin drip until INR therapeutic. - Constitutional Vitals: Temp Pulse Resp BP Pulse Ox 98.2 F 69 18 136/69 97 12/12/16 12:00 12/12/16 12:00 12/12/16 12:12/12/16 12:12/12/16 12:00 General appearance: Present: cooperative, A&O X 3, pleasant, no acute distress, answers questions appropriately - Head Head exam: Present: atraumatic, normocephalic - Eye Eye exam: Present: PERRL, conjuntiva pink, sclera anicteric Pupils: Present: PERRL - Neck Neck exam general surgery: Present: supple, trachea midline. Absent: lymphadenopathy - Respiratory Respiratory exam: Present: CTAB. Absent: accessory muscle use, rales, rhonchi, wheezes - Cardiovascular Cardiovascular exam: Present: RRR, +S1, +S2. Absent: diastolic murmur, gallop, rubs, systolic murmur - GI/Abdominal GI/Abdominal exam: Present: normal bowel sounds, soft, no peritoneal signs. Absent: distended, tenderness - Extremities Exam Extremities exam: Present: warm, radial pulses palpable and symetrical. Absent : calf tenderness, cyanotic, pedal edema - Neurological Exam Neurological exam: Present: CN II-XII intact, oriented X3, no focal deficits. Absent: pronater drift, facial droop, speech deficit - Skin Skin exam: Present: dry, intact Internal Medicine: Result - Labs CBC & Chem 7: 12/12/16 03:26 12/12/16 03:26 Labs: Short CBC 12/12/16 Range/Units 03:26 WBC 6.3 (4.3-11.1) K/mcL Hgb 10.6 L (12.9-16.9) g/dL Hct 33.6 L (37.5-50.1) % Plt Count 207 (140-400) K/mcL Neutrophils # 4.0 (1.6-8.9) K/mcL BMP 12/12/16 03:26 Sodium 140 Potassium 4.2 Chloride 111 H Carbon Dioxide 24 BUN 34 H Creatinine 1.96 H Glucose 79 Calcium 8.8 - ABG Interpretation ABG results: PT/INR, D-dimer PT 11.6 Seconds (9.4-12.1) 12/12/16 03:26 Consult Discharge Plan - Plan Referrals: Noel Petty DO [Primary Care Provider] - 12/18/16 10:00 am ()
[2016-12-12] MEDS ORDERED: *HR* Warfarin 7.5 MG TABLET PO ONE (18:00)
[2016-12-13 04:32] LABS: INR 1.2; Prothrombin Time 13.2 Seconds (9.4-12.1)
[2016-12-13 04:35] LABS: Calcium 9.2 mg/dL (8.6-10.8); Magnesium 1.8 mg/dL (1.6-2.6); Potassium 4.2 mEq/L (3.5-4.5)
[2016-12-13 04:51] LABS: Activated Partial Thrombo Time 127.6 Seconds (26.0-36.0)
[2016-12-13 05:00] LABS: Heparin anti-factor XA UFH 0.59 IU/mL (0.30-0.70)
[2016-12-13] MEDS ORDERED: Magnesium Sulfate 2 GM in D5% in Water 100 ML IVPB ONE (07:40)
[2016-12-13] MEDS: Aspirin Enteric Coated 81 MG Tablet PO SCH (07:44)
[2016-12-13] MEDS: Fenofibrate 54 MG TABLET PO SCH (07:45)
[2016-12-13] MEDS: Sucralfate 1 GM TABLET PO SCH ×4 (07:49→20:35)
[2016-12-13] MEDS: Finasteride 5 MG TABLET PO SCH (07:49)
[2016-12-13] MEDS: NIFEdipine XL (24 HR) 60 MG TAB.ER.24 PO SCH (08:01)
[2016-12-13] MEDS: Heparin 25,000 UNIT/500 ML D5W 25,000 UNIT/500 ML MLS IVC SCH ×2 (10:19→10:22)
[2016-12-13] MEDS ORDERED: 0.9 % Sodium Chloride 500 ML ONE (14:31)
[2016-12-13] MEDS: *HR* Heparin 5,000 UNIT/ML VIAL IVP PRN (14:46)
--- NOTE | 2016-12-13 17:14 | Internal Med Progress Note ---
Date of Encounter: 12/13/16 Time of Encounter: 10:00 - Assessment and plan (1) Epigastric pain Current Visit: Yes Status: Acute Assessment and plan: Resolved now. Patient had EGD on last admission recently. Results is unremarkable. (2) HTN (hypertension) Current Visit: No Status: Chronic Assessment and plan: controlled. Qualifiers: Hypertension type: essential hypertension Qualified Code(s): I10 - Essential (primary) hypertension (3) Dyspepsia Current Visit: No Status: Acute Assessment and plan: We will continue PPI and Carafate. Patient has no symptoms at this point. (4) Elevated troponin Current Visit: No Status: Acute Assessment and plan: due to demand ischemia (5) Atrial flutter with rapid ventricular response Current Visit: Yes Status: Acute Assessment and plan: new onset afib. cHADs-VASC score is 4. 6/: Echocardiogram showed LVEF 65%, mild concentric LVH, mild LV diastolic dysfunction Appreciate cardiology input. HR controlled after cardiac conversion. Sinus rhythm now. Patient is on heparin drip. Need a long-term anticoagulation upon discharge. Transit to coumadin. The patient is at high risk because he is on heparin drip. Need to closely monitoring (6) DVT prophylaxis Current Visit: Yes Status: Acute Assessment and plan: Patient is on heparin drip - Time Spent With Patient Greater than 35 minutes - Subjective Interval history: Patient came with epigastric pain, a flutter with a rapid ventricular response. I saw and examined patient today. Patient denies chest pain, shortness of breath, abdominal pain. Heart rate 80, sinus rhythm. BP is stable. Continue Coumadin and bridged with heparin drip until INR therapeutic. - Constitutional Vitals: Temp Pulse Resp BP Pulse Ox 97.9 F 76 18 129/73 97 12/13/16 15:08 12/13/16 15:08 12/13/16 15:08 12/13/16 15:08 12/13/16 15:08 General appearance: Present: cooperative, A&O X 3, pleasant, no acute distress, answers questions appropriately - Head Head exam: Present: atraumatic, normocephalic - Eye Eye exam: Present: PERRL, conjuntiva pink, sclera anicteric Pupils: Present: PERRL - Neck Neck exam general surgery: Present: supple, trachea midline. Absent: lymphadenopathy - Respiratory Respiratory exam: Present: CTAB. Absent: accessory muscle use, rales, rhonchi, wheezes - Cardiovascular Cardiovascular exam: Present: RRR, +S1, +S2. Absent: diastolic murmur, gallop, rubs, systolic murmur - GI/Abdominal GI/Abdominal exam: Present: normal bowel sounds, soft, no peritoneal signs. Absent: distended, tenderness - Extremities Exam Extremities exam: Present: warm, radial pulses palpable and symetrical. Absent : calf tenderness, cyanotic, pedal edema - Neurological Exam Neurological exam: Present: CN II-XII intact, oriented X3, no focal deficits. Absent: pronater drift, facial droop, speech deficit - Skin Skin exam: Present: dry, intact Internal Medicine: Result - Labs CBC & Chem 7: 12/12/16 03:26 12/13/16 03:46 Labs: BMP 12/13/16 03:46 Sodium 140 Potassium 4.2 Chloride 109 Carbon Dioxide 24 BUN 29 H Creatinine 1.90 H Glucose 90 Calcium 9.2 - ABG Interpretation ABG results: PT/INR, D-dimer PT 13.2 Seconds (9.4-12.1) H 12/13/16 03:46 Consult Discharge Plan - Plan Referrals: Noel Petty DO [Primary Care Provider] - 12/18/16 10:00 am ()
[2016-12-13] MEDS ORDERED: *HR* Warfarin 5 MG TABLET PO ONE (18:00)
[2016-12-14 03:39] LABS: Basophils % 0.3 %; Eosinophils # 0.1 K/mcL (0.0-0.6); Eosinophils % 1.4 %; Hematocrit 38.3 % (37.5-50.1); Immature Granulocytes % 0.3 % (0-4); Lymphocytes # 1.4 K/mcL (0.6-4.6); Mean Corpuscular HGB Conc 31.9 g/dL (31.6-35.5); Mean Corpuscular Hemoglobin 26.5 pg (28.0-33.3); Mean Corpuscular Volume 83.1 fL (83.0-100.0); Mean Platelet Volume 9.5 fL (9.4-12.4); Monocytes # 0.6 K/mcL (0.0-1.3); Monocytes % 8.7 %; Neutrophils # 4.5 K/mcL (1.6-8.9); Platelet Count 206 K/mcL (140-400); Red Blood Count 4.61 M/mcL (4.19-5.50); Red Cell Distribution Width 17.4 % (11.5-14.5); Segmented Neutrophils % 68.3 %
[2016-12-14 03:44] LABS: Hemoglobin 12.2 g/dL (12.9-16.9)
[2016-12-14 03:47] LABS: INR 1.4; Prothrombin Time 14.9 Seconds (9.4-12.1)
[2016-12-14 03:58] LABS: Calcium 9.2 mg/dL (8.6-10.8); Magnesium 1.6 mg/dL (1.6-2.6); Potassium 4.3 mEq/L (3.5-4.5)
[2016-12-14] MEDS: Finasteride 5 MG TABLET PO SCH (08:02)
[2016-12-14] MEDS: Fenofibrate 54 MG TABLET PO SCH (08:02)
[2016-12-14] MEDS: Aspirin Enteric Coated 81 MG Tablet PO SCH (08:02)
[2016-12-14] MEDS: Sucralfate 1 GM TABLET PO SCH ×4 (08:02→21:09)
[2016-12-14] MEDS: NIFEdipine XL (24 HR) 60 MG TAB.ER.24 PO SCH (08:08)
--- NOTE | 2016-12-14 16:29 | Internal Med Progress Note ---
Date of Encounter: 12/14/16 Time of Encounter: 10:00 - Assessment and plan (1) Epigastric pain Current Visit: Yes Status: Acute Assessment and plan: Resolved now. Patient had EGD on last admission recently. Results is unremarkable. (2) HTN (hypertension) Current Visit: No Status: Chronic Assessment and plan: controlled. Qualifiers: Hypertension type: essential hypertension Qualified Code(s): I10 - Essential (primary) hypertension (3) Dyspepsia Current Visit: No Status: Acute Assessment and plan: We will continue PPI and Carafate. Patient has no symptoms at this point. (4) Elevated troponin Current Visit: No Status: Acute Assessment and plan: due to demand ischemia (5) Atrial flutter with rapid ventricular response Current Visit: Yes Status: Acute Assessment and plan: new onset afib. cHADs-VASC score is 4. 6/: Echocardiogram showed LVEF 65%, mild concentric LVH, mild LV diastolic dysfunction Appreciate cardiology input. HR controlled after cardiac conversion. Sinus rhythm now. Patient is on heparin drip. Need a long-term anticoagulation upon discharge. Transit to coumadin. Waiting for INR therapeutic. The patient is at high risk because he is on heparin drip. Need to closely monitoring (6) DVT prophylaxis Current Visit: Yes Status: Acute Assessment and plan: Patient is on heparin drip - Time Spent With Patient 25 - 35 minutes - Subjective Interval history: Patient came with epigastric pain, a flutter with a rapid ventricular response. I saw and examined patient today. Patient denies chest pain, shortness of breath, abdominal pain. Heart rate 76, sinus rhythm. BP is stable. Continue Coumadin and bridged with heparin drip until INR therapeutic. Today INR 1.4 - Constitutional Vitals: Temp Pulse Resp BP Pulse Ox 97.9 F 89 18 132/70 95 12/14/16 15:36 12/14/16 15:36 12/14/16 15:36 12/14/16 15:36 12/14/16 15:36 General appearance: Present: cooperative, A&O X 3, pleasant, no acute distress, answers questions appropriately - Head Head exam: Present: atraumatic, normocephalic - Eye Eye exam: Present: PERRL, conjuntiva pink, sclera anicteric Pupils: Present: PERRL - Neck Neck exam general surgery: Present: supple, trachea midline. Absent: lymphadenopathy - Respiratory Respiratory exam: Present: CTAB. Absent: accessory muscle use, rales, rhonchi, wheezes - Cardiovascular Cardiovascular exam: Present: RRR, +S1, +S2. Absent: diastolic murmur, gallop, rubs, systolic murmur - GI/Abdominal GI/Abdominal exam: Present: normal bowel sounds, soft, no peritoneal signs. Absent: distended, tenderness - Extremities Exam Extremities exam: Present: warm, radial pulses palpable and symetrical. Absent : calf tenderness, cyanotic, pedal edema - Neurological Exam Neurological exam: Present: CN II-XII intact, oriented X3, no focal deficits. Absent: pronater drift, facial droop, speech deficit - Skin Skin exam: Present: dry, intact Internal Medicine: Result - Labs CBC & Chem 7: 12/14/16 03:27 12/14/16 03:27 Labs: Short CBC 12/14/16 Range/Units 03:27 WBC 6.5 (4.3-11.1) K/mcL Hgb 12.2 L D (12.9-16.9) g/dL Hct 38.3 (37.5-50.1) % Plt Count 206 (140-400) K/mcL Neutrophils # 4.5 (1.6-8.9) K/mcL BMP 12/14/16 03:27 Sodium 139 Potassium 4.3 Chloride 108 Carbon Dioxide 23 BUN 30 H Creatinine 1.99 H Glucose 86 Calcium 9.2 - ABG Interpretation ABG results: PT/INR, D-dimer PT 14.9 Seconds (9.4-12.1) H 12/14/16 03:27 Consult Discharge Plan - Plan Referrals: Noel Petty DO [Primary Care Provider] - 12/18/16 10:00 am ()
[2016-12-14] MEDS: Heparin 25,000 UNIT/500 ML D5W 25,000 UNIT/500 ML MLS IVC SCH (17:40)
[2016-12-14] MEDS ORDERED: *HR* Warfarin 5 MG TABLET PO ONE (18:00)
[2016-12-15 03:05] LABS: Basophils % 0.4 %; Eosinophils # 0.1 K/mcL (0.0-0.6); Eosinophils % 1.6 %; Hematocrit 38.7 % (37.5-50.1); Hemoglobin 12.4 g/dL (12.9-16.9); Immature Granulocytes % 0.3 % (0-4); Lymphocytes % 28.9 %; Mean Corpuscular Hemoglobin 26.6 pg (28.0-33.3); Mean Corpuscular Volume 82.9 fL (83.0-100.0); Mean Platelet Volume 9.7 fL (9.4-12.4); Monocytes # 0.7 K/mcL (0.0-1.3); Monocytes % 9.3 %; Neutrophils # 4.2 K/mcL (1.6-8.9); Platelet Count 250 K/mcL (140-400); Red Blood Count 4.67 M/mcL (4.19-5.50); Red Cell Distribution Width 17.3 % (11.5-14.5); Segmented Neutrophils % 59.5 %
[2016-12-15 03:09] LABS: INR 1.6; Prothrombin Time 17.5 Seconds (9.4-12.1)
[2016-12-15 03:17] LABS: Calcium 9.5 mg/dL (8.6-10.8); Magnesium 1.3 mg/dL (1.6-2.6); Potassium 4.3 mEq/L (3.5-4.5)
[2016-12-15] MEDS: Aspirin Enteric Coated 81 MG Tablet PO SCH (09:33)
[2016-12-15] MEDS: Fenofibrate 54 MG TABLET PO SCH (09:34)
[2016-12-15] MEDS: Magnesium Oxide 400 MG TABLET PO SCH (09:34)
[2016-12-15] MEDS: NIFEdipine XL (24 HR) 60 MG TAB.ER.24 PO SCH (09:34)
[2016-12-15] MEDS: Sucralfate 1 GM TABLET PO SCH ×4 (09:34→20:55)
[2016-12-15] MEDS: Finasteride 5 MG TABLET PO SCH (09:34)
[2016-12-15] MEDS: Magnesium Sulfate 2 GM in D5% in Water 100 ML IVPB SCH ×2 (09:35→18:44)
--- NOTE | 2016-12-15 15:08 | Internal Med Progress Note ---
Date of Encounter: 12/15/16 Time of Encounter: 11:00 - Assessment and plan (1) Epigastric pain Current Visit: Yes Status: Acute Assessment and plan: Resolved now. Patient had EGD on last admission recently. Results is unremarkable. (2) HTN (hypertension) Current Visit: No Status: Chronic Assessment and plan: controlled. Qualifiers: Hypertension type: essential hypertension Qualified Code(s): I10 - Essential (primary) hypertension (3) Dyspepsia Current Visit: No Status: Acute Assessment and plan: We will continue PPI and Carafate. Patient has no symptoms at this point. (4) Elevated troponin Current Visit: No Status: Acute Assessment and plan: due to demand ischemia (5) Atrial flutter with rapid ventricular response Current Visit: Yes Status: Acute Assessment and plan: new onset afib. cHADs-VASC score is 4. 6/: Echocardiogram showed LVEF 65%, mild concentric LVH, mild LV diastolic dysfunction Appreciate cardiology input. HR controlled after cardiac conversion. Sinus rhythm now. Patient is on heparin drip. Need a long-term anticoagulation upon discharge. Transit to coumadin. Waiting for INR therapeutic. The patient is at high risk because he is on heparin drip. Need to closely monitoring (6) DVT prophylaxis Current Visit: Yes Status: Acute Assessment and plan: Patient is on heparin drip and coumadin. - Time Spent With Patient Greater than 35 minutes - Subjective Interval history: Patient came with epigastric pain, a flutter with a rapid ventricular response. I saw and examined patient today. Patient denies chest pain, shortness of breath, abdominal pain. Heart rate 76, sinus rhythm. BP is stable. Continue Coumadin and bridged with heparin drip until INR therapeutic. Today INR 1.6. Low magnesium level, supplement given and pt was placed on po magnesium oxide. - Constitutional Vitals: Temp Pulse Resp BP Pulse Ox 98.2 F 74 16 120/67 93 12/15/16 11:12/15/16 11:17 12/15/16 11:17 12/15/16 11:12/15/16 11:17 General appearance: Present: cooperative, A&O X 3, pleasant, no acute distress, answers questions appropriately - Head Head exam: Present: atraumatic, normocephalic - Eye Eye exam: Present: PERRL, conjuntiva pink, sclera anicteric Pupils: Present: PERRL - Neck Neck exam general surgery: Present: supple, trachea midline. Absent: lymphadenopathy - Respiratory Respiratory exam: Present: CTAB. Absent: accessory muscle use, rales, rhonchi, wheezes - Cardiovascular Cardiovascular exam: Present: RRR, +S1, +S2. Absent: diastolic murmur, gallop, rubs, systolic murmur - GI/Abdominal GI/Abdominal exam: Present: normal bowel sounds, soft, no peritoneal signs. Absent: distended, tenderness - Extremities Exam Extremities exam: Present: warm, radial pulses palpable and symetrical. Absent : calf tenderness, cyanotic, pedal edema - Neurological Exam Neurological exam: Present: CN II-XII intact, oriented X3, no focal deficits. Absent: pronater drift, facial droop, speech deficit - Skin Skin exam: Present: dry, intact Internal Medicine: Result - Labs CBC & Chem 7: 12/15/16 02:57 12/15/16 02:57 Labs: Short CBC 12/15/16 Range/Units 02:57 WBC 7.0 (4.3-11.1) K/mcL Hgb 12.4 L (12.9-16.9) g/dL Hct 38.7 (37.5-50.1) % Plt Count 250 (140-400) K/mcL Neutrophils # 4.2 (1.6-8.9) K/mcL BMP 12/15/16 02:57 Sodium 137 Potassium 4.3 Chloride 105 Carbon Dioxide 25 BUN 37 H Creatinine 1.95 H Glucose 79 Calcium 9.5 - ABG Interpretation ABG results: PT/INR, D-dimer PT 17.5 Seconds (9.4-12.1) H 12/15/16 02:57 Consult Discharge Plan - Plan Referrals: Noel Petty DO [Primary Care Provider] - 12/18/16 10:00 am ()
[2016-12-15] MEDS ORDERED: *HR* Warfarin 5 MG TABLET PO ONE (18:00)
[2016-12-16 04:21] LABS: Basophils % 0.4 %; Eosinophils # 0.1 K/mcL (0.0-0.6); Eosinophils % 1.3 %; Hematocrit 40.3 % (37.5-50.1); Hemoglobin 12.9 g/dL (12.9-16.9); Immature Granulocytes % 0.4 % (0-4); Lymphocytes # 1.8 K/mcL (0.6-4.6); Lymphocytes % 26.3 %; Mean Corpuscular Hemoglobin 26.4 pg (28.0-33.3); Mean Corpuscular Volume 82.4 fL (83.0-100.0); Mean Platelet Volume 9.9 fL (9.4-12.4); Monocytes # 0.7 K/mcL (0.0-1.3); Monocytes % 10.7 %; Neutrophils # 4.1 K/mcL (1.6-8.9); Platelet Count 252 K/mcL (140-400); Red Blood Count 4.89 M/mcL (4.19-5.50); Red Cell Distribution Width 17.4 % (11.5-14.5); Segmented Neutrophils % 60.9 %
[2016-12-16 04:28] LABS: INR 1.5; Prothrombin Time 16.4 Seconds (9.4-12.1)
[2016-12-16 04:31] LABS: Activated Partial Thrombo Time 64.8 Seconds (26.0-36.0)
[2016-12-16 04:33] LABS: Calcium 9.6 mg/dL (8.6-10.8); Magnesium 1.8 mg/dL (1.6-2.6); Potassium 4.4 mEq/L (3.5-4.5)
[2016-12-16] MEDS: Heparin 25,000 UNIT/500 ML D5W 25,000 UNIT/500 ML MLS IVC SCH (06:04)
[2016-12-16] MEDS: NIFEdipine XL (24 HR) 60 MG TAB.ER.24 PO SCH (07:42)
[2016-12-16] MEDS: Finasteride 5 MG TABLET PO SCH (07:42)
[2016-12-16] MEDS: Aspirin Enteric Coated 81 MG Tablet PO SCH (07:43)
[2016-12-16] MEDS: Fenofibrate 54 MG TABLET PO SCH (07:43)
[2016-12-16] MEDS: Sucralfate 1 GM TABLET PO SCH ×4 (07:43→22:16)
[2016-12-16] MEDS: Magnesium Oxide 400 MG TABLET PO SCH (07:43)
[2016-12-16] MEDS ORDERED: *HR* Warfarin 7.5 MG TABLET PO ONE (18:00)
--- NOTE | 2016-12-16 18:00 | Internal Med Progress Note ---
Date of Encounter: 12/16/16 Time of Encounter: 10:00 - Assessment and plan (1) Epigastric pain Current Visit: Yes Status: Acute Assessment and plan: Resolved now. Patient had EGD on last admission recently. Results is unremarkable. (2) HTN (hypertension) Current Visit: No Status: Chronic Assessment and plan: controlled. Qualifiers: Hypertension type: essential hypertension Qualified Code(s): I10 - Essential (primary) hypertension (3) Dyspepsia Current Visit: No Status: Acute Assessment and plan: We will continue PPI and Carafate. Patient has no symptoms at this point. (4) Elevated troponin Current Visit: No Status: Acute Assessment and plan: due to demand ischemia (5) Atrial flutter with rapid ventricular response Current Visit: Yes Status: Acute Assessment and plan: new onset afib. cHADs-VASC score is 4. 6/: Echocardiogram showed LVEF 65%, mild concentric LVH, mild LV diastolic dysfunction Appreciate cardiology input. HR controlled after cardiac conversion. Sinus rhythm now. Patient is on heparin drip. Need a long-term anticoagulation upon discharge. Per cardio, transit to coumadin need heparin bridge because he had cardiac conversion. Waiting for INR therapeutic. Pt need 4 week ECAT Monitor at time of discharge, per cardio consult, need contact cardio upon discharge. The patient is at high risk because he is on heparin drip. Need to closely monitoring (6) DVT prophylaxis Current Visit: Yes Status: Acute Assessment and plan: Patient is on heparin drip and coumadin. - Time Spent With Patient Greater than 35 minutes - Subjective Interval history: Patient came with epigastric pain, a flutter with a rapid ventricular response. I saw and examined patient today. Patient denies chest pain, shortness of breath, abdominal pain. Heart rate 76, sinus rhythm. BP is stable. Continue Coumadin and bridged with heparin drip until INR therapeutic. Today INR 1.5. - Constitutional Vitals: Temp Pulse Resp BP Pulse Ox 97.6 F 77 19 110/57 97 12/15/16 23:46 12/16/16 15:00 12/16/16 15:00 12/16/16 15:00 12/16/16 15:00 General appearance: Present: cooperative, A&O X 3, pleasant, no acute distress, answers questions appropriately - Head Head exam: Present: atraumatic, normocephalic - Eye Eye exam: Present: PERRL, conjuntiva pink, sclera anicteric Pupils: Present: PERRL - Neck Neck exam general surgery: Present: supple, trachea midline. Absent: lymphadenopathy - Respiratory Respiratory exam: Present: CTAB. Absent: accessory muscle use, rales, rhonchi, wheezes - Cardiovascular Cardiovascular exam: Present: RRR, +S1, +S2. Absent: diastolic murmur, gallop, rubs, systolic murmur - GI/Abdominal GI/Abdominal exam: Present: normal bowel sounds, soft, no peritoneal signs. Absent: distended, tenderness - Extremities Exam Extremities exam: Present: warm, radial pulses palpable and symetrical. Absent : calf tenderness, cyanotic, pedal edema - Neurological Exam Neurological exam: Present: CN II-XII intact, oriented X3, no focal deficits. Absent: pronater drift, facial droop, speech deficit - Skin Skin exam: Present: dry, intact Internal Medicine: Result - Labs CBC & Chem 7: 12/16/16 04:02 12/16/16 04:02 Labs: Short CBC 12/16/16 Range/Units 04:02 WBC 6.7 (4.3-11.1) K/mcL Hgb 12.9 (12.9-16.9) g/dL Hct 40.3 (37.5-50.1) % Plt Count 252 (140-400) K/mcL Neutrophils # 4.1 (1.6-8.9) K/mcL BMP 12/16/16 04:02 Sodium 137 Potassium 4.4 Chloride 106 Carbon Dioxide 25 BUN 39 H Creatinine 2.35 H Glucose 88 Calcium 9.6 - ABG Interpretation ABG results: PT/INR, D-dimer PT 16.4 Seconds (9.4-12.1) H 12/16/16 04:02 Consult Discharge Plan - Plan Referrals: Noel Petty DO [Primary Care Provider] - 12/18/16 10:00 am ()
[2016-12-17 06:49] LABS: INR 1.8; Prothrombin Time 20.3 Seconds (9.4-12.1)
[2016-12-17 06:52] LABS: Activated Partial Thrombo Time 64.5 Seconds (26.0-36.0)
[2016-12-17 06:53] LABS: Calcium 9.2 mg/dL (8.6-10.8); Magnesium 1.3 mg/dL (1.6-2.6); Potassium 4.4 mEq/L (3.5-4.5)
[2016-12-17 07:03] LABS: Basophils % 0.6 %; Eosinophils # 0.1 K/mcL (0.0-0.6); Eosinophils % 1.4 %; Hematocrit 39.6 % (37.5-50.1); Hemoglobin 12.4 g/dL (12.9-16.9); Immature Granulocytes % 0.3 % (0-4); Lymphocytes % 27.8 %; Mean Corpuscular HGB Conc 31.3 g/dL (31.6-35.5); Mean Corpuscular Hemoglobin 26.2 pg (28.0-33.3); Mean Corpuscular Volume 83.7 fL (83.0-100.0); Monocytes # 0.7 K/mcL (0.0-1.3); Monocytes % 10.2 %; Neutrophils # 4.2 K/mcL (1.6-8.9); Platelet Count 237 K/mcL (140-400); Red Blood Count 4.73 M/mcL (4.19-5.50); Red Cell Distribution Width 17.5 % (11.5-14.5); Segmented Neutrophils % 59.7 %
[2016-12-17] MEDS: Sucralfate 1 GM TABLET PO SCH ×4 (07:48→20:31)
[2016-12-17] MEDS: Fenofibrate 54 MG TABLET PO SCH (07:49)
[2016-12-17] MEDS: NIFEdipine XL (24 HR) 60 MG TAB.ER.24 PO SCH (07:49)
[2016-12-17] MEDS: Magnesium Oxide 400 MG TABLET PO SCH (07:49)
[2016-12-17] MEDS: Finasteride 5 MG TABLET PO SCH (07:49)
[2016-12-17] MEDS: Aspirin Enteric Coated 81 MG Tablet PO SCH (07:50)
[2016-12-17] MEDS ORDERED: Magnesium Sulfate 2 GM in D5% in Water 100 ML IVPB ONE (09:22)
--- NOTE | 2016-12-17 09:32 | Discharge Summary ---
Date of Encounter: 12/18/16 Time of Encounter: 14:59 - Discharge Diagnosis (1) HTN (hypertension) Priority: Secondary Status: Chronic Qualifiers: Hypertension type: essential hypertension Qualified Code(s): I10 - Essential (primary) hypertension (2) Dyspepsia Priority: Secondary Status: Acute (3) Elevated troponin Priority: Secondary Status: Acute (4) Abdominal pain Priority: Secondary Status: Resolved Qualifiers: Abdominal location: epigastric Qualified Code(s): R10.13 - Epigastric pain (5) Atrial flutter with rapid ventricular response Priority: Primary Status: Acute (6) Hypomagnesemia Priority: Secondary Status: Acute (7) Acute worsening of stage 3 chronic kidney disease Priority: Secondary Status: Acute - Discharge Medications Home Medications: Acitretin [Soriatane] 10 mg PO BID 07/24/16 [History] Atorvastatin [Lipitor] 40 mg PO HS 07/24/16 [History] Ciclopirox [Loprox] 120 ml TP 3XW 07/24/16 [History] Ergocalciferol (VITAMIN D2) [Vitamin D2] 50,000 unit PO FLORES 07/24/16 [History] Finasteride [Proscar] 5 mg PO DAILY 07/24/16 [History] FluocinoNIDE 0.05% CRM [Lidex] 1 appl TP 3XW 07/24/16 [History] Fluticasone/Salmeterol [Advair Hfa 230-21 Mcg Inhaler] 2 puff IH BID 07/24/16 [ History] Isosorbide MONOnitrate (24 HR) [Imdur] 60 mg PO DAILY 07/24/16 [History] Levothyroxine [Synthroid] 50 mcg PO 0630 07/24/16 [History] NIFEdipine XL (24 HR) [Procardia XL] 60 mg PO DAILY 07/24/16 [History] Nitroglycerin [Nitrostat] 0.4 mg SL Q5M PRN 07/24/16 [History] Potassium Chloride [Klor-Con] 20 meq PO DAILY 07/24/16 [History] hydroCHLOROthiazide [Hydrochlorothiazide] 25 mg PO DAILY 07/24/16 [History] Aspirin [Lo-Dose Aspirin EC] 81 mg PO DAILY 11/14/16 [History] Fenofibrate Nanocrystallized [Tricor] 145 mg PO DAILY 11/14/16 [History] Ibuprofen [Motrin] 200 mg PO Q6HR PRN 11/14/16 [History] Sucralfate [Carafate] 1 gm PO QIDAC 11/14/16 [History] Dicyclomine [Bentyl] 10 mg PO TID PRN #60 capsule 11/15/16 [Rx] Omeprazole [PriLOSEC] 40 mg PO DAILY@0730 capsule. 11/15/16 [Rx] Albuterol Neb [Proventil Neb] 2.5 mg IH BID 12/06/16 [History] cephALEXin [Keflex] 500 mg PO BID 12/06/16 [History] Acetaminophen [Tylenol] 650 mg PO Q6HR PRN tab 12/17/16 [Rx] Magnesium Oxide [Mag-Ox] 400 mg PO DAILY #30 tab 12/17/16 [Rx] Warfarin perPT [Coumadin perPT] 6 mg PO DAILY@1800 PRN #30 each 12/17/16 [Rx] Allergies/Adverse Reactions: Allergies No Known Allergies Allergy (Verified 11/14/16 03:04) Date of admission: 12/06/16 17:59 Primary care physician: Noel Petty Consults: 12/07/16 05:39 Consult to Operations Lieutenant [CONS] Routine Reason for SW Consult: PT NEEDS HELP WITH ADVANCE DIRECTIVES. CANNOT UNDERSTAND THE PAPERWORK. 12/09/16 08:02 Consult to Electrophysiology (EP) [CONS] Routine Consulting Provider: Electrophysiology [place] Reason for Consult: new onset atrial flutter Call Completed: Yes 12/15/16 09:56 Consult to Nutrition [CONS] Routine Comment: Pt newly started coumadin Consulting Provider: NUTRITION Reason for Dietary Consult: Diet Education Discharging clinician: Bindu Mccartnye Anticipated date of discharge: 12/18/16 - Patient Status Disposition: Home, Self-Care Condition: Fair Overall status at discharge: patient is progressing back to baseline - Discharge Instructions Instructions: Atrial Flutter (DC), Chest Pain (DC), Asthma (DC), Chronic Kidney Disease (DC), Chronic Kidney Disease (GEN), Chronic Hypertension (DC) Follow Up With: Jean Mcclain CNP [Advanced Practice Nurse] - 01/22/17 2:00 pm Noel Petty DO [Primary Care Provider] - 12/23/16 1:45 pm () Additional Instructions: new appt requested - Diet and Activity Activity: resume usual activities as tolerated Diet: advance to your usual diet (Follow-up at Coumadin clinic follow-up periodic adjustment of Coumadin dosing) Hospital course: Mr. Mazariegos is a 76 year old male admitted with A. fib with RVR/A flutter. Patient underwent cardioversion. He has been started on anti-correlation and currently he is on IV heparin and Coumadin. INR 1.8 this morning. Plan is to send him home on Coumadin 6 mg and have him follow up with anti-correlation clinic. Product Manager Medical Device wants to keep him on IV heparin during bridging process. He also had abdominal pain and was relief with the Protonix and Carafate. Recently EGD was done and it was unremarkable. Hemoglobin is stable. - Time Spent with Patient Total time spent providing and/or coordinating discharge services: Greater than 30 minutes - Constitutional Vitals: Temp Pulse Resp BP Pulse Ox 97.7 F 68 18 140/74 97 12/17/16 08:06 12/17/16 08:06 12/17/16 08:06 12/17/16 08:06 12/17/16 08:06 General appearance: Present: cooperative, A&O X 3, pleasant, no acute distress, answers questions appropriately - Head Head exam: Present: atraumatic, normocephalic - Eye Eye exam: Present: PERRL, conjuntiva pink, sclera anicteric Pupils: Present: PERRL - Neck Neck exam general surgery: Present: supple, trachea midline. Absent: lymphadenopathy - Respiratory Respiratory exam: Present: CTAB. Absent: accessory muscle use, rales, rhonchi, wheezes - Cardiovascular Cardiovascular exam: Present: RRR, +S1, +S2. Absent: diastolic murmur, gallop, rubs, systolic murmur - GI/Abdominal GI/Abdominal exam: Present: normal bowel sounds, soft, no peritoneal signs. Absent: distended, tenderness - Extremities Exam Extremities exam: Present: warm, radial pulses palpable and symetrical. Absent : calf tenderness, cyanotic, pedal edema - Neurological Exam Neurological exam: Present: CN II-XII intact, oriented X3, no focal deficits. Absent: pronater drift, facial droop, speech deficit - Skin Skin exam: Present: dry, intact
[2016-12-17] MEDS ORDERED: *HR* Warfarin 7.5 MG TABLET PO ONE (18:00)
[2016-12-18 03:53] LABS: INR 2.3; Prothrombin Time 25.6 Seconds (9.4-12.1)
[2016-12-18] MEDS: Heparin 25,000 UNIT/500 ML D5W 25,000 UNIT/500 ML MLS IVC SCH (04:13)
[2016-12-18] MEDS: Finasteride 5 MG TABLET PO SCH (08:40)
[2016-12-18] MEDS: Fenofibrate 54 MG TABLET PO SCH (08:41)
[2016-12-18] MEDS: Magnesium Oxide 400 MG TABLET PO SCH (08:41)
[2016-12-18] MEDS: Aspirin Enteric Coated 81 MG Tablet PO SCH (08:41)
[2016-12-18] MEDS: Sucralfate 1 GM TABLET PO SCH ×2 (08:41→11:44)
[2016-12-18] MEDS: NIFEdipine XL (24 HR) 60 MG TAB.ER.24 PO SCH (08:41)
[2016-12-18 11:28] VITALS: BP 143/92
--- NOTE | 2016-12-18 14:53 | Internal Med Progress Note ---
Date of Encounter: 12/18/16 Time of Encounter: 14:51 - Assessment and plan (1) HTN (hypertension) Current Visit: No Status: Chronic Qualifiers: Hypertension type: essential hypertension Qualified Code(s): I10 - Essential (primary) hypertension (2) Dyspepsia Current Visit: No Status: Acute (3) Elevated troponin Current Visit: No Status: Acute (4) Abdominal pain Current Visit: No Status: Resolved Qualifiers: Abdominal location: epigastric Qualified Code(s): R10.13 - Epigastric pain (5) Atrial flutter with rapid ventricular response Current Visit: Yes Status: Acute (6) Hypomagnesemia Current Visit: Yes Status: Acute (7) Acute worsening of stage 3 chronic kidney disease Current Visit: Yes Status: Acute - Subjective Interval history: Mr. Mazariegos is a 76 year old male admitted with A. fib with RVR/A flutter. Patient underwent cardioversion. He has been started on anti-correlation and currently he is on IV heparin and Coumadin. INR 1.8 this morning. Plan is to send him home on Coumadin 6 mg and have him follow up with anti-correlation clinic. Drop Board Worker wants to keep him on IV heparin during bridging process. He also had abdominal pain and was relief with the Protonix and Carafate. Recently EGD was done and it was unremarkable. Hemoglobin is stable. 8/2patient is asymptomatic. INR is therapeutic. Patient can be discharged on Coumadin and Protonix.discharge summary was done yesterda. No change in plan. - Constitutional Vitals: Temp Pulse Resp BP Pulse Ox 97.5 F L 85 18 143/92 95 12/18/16 07:01 12/18/16 11:26 12/18/16 11:26 12/18/16 11:26 12/18/16 11:26 General appearance: Present: cooperative, A&O X 3, pleasant, no acute distress, answers questions appropriately - Head Head exam: Present: atraumatic, normocephalic - Eye Eye exam: Present: PERRL, conjuntiva pink, sclera anicteric Pupils: Present: PERRL - Neck Neck exam general surgery: Present: supple, trachea midline. Absent: lymphadenopathy - Respiratory Respiratory exam: Present: CTAB. Absent: accessory muscle use, rales, rhonchi, wheezes - Cardiovascular Cardiovascular exam: Present: RRR, +S1, +S2. Absent: diastolic murmur, gallop, rubs, systolic murmur - GI/Abdominal GI/Abdominal exam: Present: normal bowel sounds, soft, no peritoneal signs. Absent: distended, tenderness - Extremities Exam Extremities exam: Present: warm, radial pulses palpable and symetrical. Absent : calf tenderness, cyanotic, pedal edema - Neurological Exam Neurological exam: Present: CN II-XII intact, oriented X3, no focal deficits. Absent: pronater drift, facial droop, speech deficit - Skin Skin exam: Present: dry, intact Internal Medicine: Result - Labs CBC & Chem 7: 12/17/16 05:28 12/17/16 05:28 - ABG Interpretation ABG results: PT/INR, D-dimer PT 25.6 Seconds (9.4-12.1) H 12/18/16 03:03 Consult Discharge Plan - Plan Instructions: Atrial Flutter (DC), Chest Pain (DC), Asthma (DC), Chronic Kidney Disease (DC), Chronic Kidney Disease (GEN), Chronic Hypertension (DC) Additional Instructions: new appt requested Referrals: Jean Mcclain CNP [Advanced Practice Nurse] - 01/22/17 2:00 pm Noel Petty DO [Primary Care Provider] - 12/23/16 1:45 pm ()
[2016-12-18] MEDS ORDERED: *HR* Warfarin 3 MG TABLET PO SCH (18:00)
== END 2016-12-18 15:15 | disposition home or self-care (01) | DRG 309 ==
LOC: 2ANU 13:26 → EMEROO 13:26 → 2ANU 16:39 → 2NNU 17:57 → SUATTDRO 17:59 → 2NENU 12-13 18:11
PROVIDERS: ADMIT Internal Medicine; ATTEND Internal Medicine

== ENCOUNTER 2016-12-20 02:42 | Observation (INO) ==
[2016-12-20] MEDS ORDERED: Aspirin 81 MG TAB.CHEW PO ONE (02:52)
--- NOTE | 2016-12-20 02:56 | Emergency Department Note ---
Disposition Clinical Impression: Abnormal serum enzyme level Chest pain Qualifiers: Chest pain type: unspecified Qualified Code(s): R07.9 - Chest pain, unspecified Disposition: Admitted As Inpatient Condition: Fair Time of Disposition: 03:41 Chest Pain HPI - General Chief Complaint: ED Chest Pain Stated Complaint: CP Time Seen by Provider: 12/20/16 02:51 Source: patient, EMS Limitations: no limitations Vital Signs Reviewed: Yes Nursing Notes Reviewed: Yes - History of Present Illness HPI Narrative: Alert and oriented nontoxic-appearing 76-year-old male presents for evaluation of substernal chest pain that awoke him from his sleep just prior to arrival. The patient stated that it started as a dull ache which quickly progressed to a sharp pain. He took 2 sublingual nitroglycerin tablets at home which nearly alleviated his pain. He states that at that time, he was also slightly nauseated and short of breath. Of note, the patient was just discharged from this facility on 12/16/16 after being admitted for new onset atrial flutter with rapid ventricular response. He underwent a cardioversion with ANTONINO during that hospitalization. He is on Coumadin at this time. 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 Duration: now resolved Onset: during rest Pain Location: substernal Severity scale (1-10): 0 Quality: dull Pain Radiation: none Improves with: nitroglycerin Associated symptoms: Reports: nausea, other (Shortness of breath) Treatments prior to arrival chest pain: nitroglycerin (Nitroglycerin sublingual tablets 2 at home prior to EMS arrival) - Related Data Home Medications Medication Instructions Recorded Confirmed Acitretin [Soriatane] 10 mg PO BID 07/24/16 12/20/16 Atorvastatin [Lipitor] 40 mg PO HS 07/24/16 12/20/16 Ciclopirox [Loprox] 120 ml TP 3XW 07/24/16 12/20/16 Ergocalciferol (VITAMIN D2) 50,000 unit PO FLORES 07/24/16 12/20/16 [Vitamin D2] Finasteride [Proscar] 5 mg PO DAILY 07/24/16 12/20/16 FluocinoNIDE 0.05% CRM [Lidex] 1 appl TP 3XW 07/24/16 12/20/16 Fluticasone/Salmeterol [Advair Hfa 2 puff IH BID 07/24/16 12/20/16 230-21 Mcg Inhaler] Isosorbide MONOnitrate (24 HR) 60 mg PO DAILY 07/24/16 12/20/16 [Imdur] Levothyroxine [Synthroid] 50 mcg PO 0630 07/24/16 12/20/16 NIFEdipine XL (24 HR) [Procardia 60 mg PO DAILY 07/24/16 12/20/16 XL] Nitroglycerin [Nitrostat] 0.4 mg SL Q5M PRN 07/24/16 12/20/16 Potassium Chloride [Klor-Con] 20 meq PO DAILY 07/24/16 12/20/16 hydroCHLOROthiazide 25 mg PO DAILY 07/24/16 12/20/16 [Hydrochlorothiazide] Aspirin [Lo-Dose Aspirin EC] 81 mg PO DAILY 11/14/16 12/20/16 Fenofibrate Nanocrystallized 145 mg PO DAILY 11/14/16 12/20/16 [Tricor] Ibuprofen [Motrin] 200 mg PO Q6HR PRN 11/14/16 12/20/16 Sucralfate [Carafate] 1 gm PO QIDAC 11/14/16 12/20/16 Albuterol Neb [Proventil Neb] 2.5 mg IH BID 12/06/16 12/20/16 cephALEXin [Keflex] 500 mg PO BID 12/06/16 12/20/16 Previous Rx's Medication Instructions Recorded Dicyclomine [Bentyl] 10 mg PO TID PRN #60 capsule 11/15/16 Omeprazole [PriLOSEC] 40 mg PO DAILY@0730 capsule. 11/15/16 Acetaminophen [Tylenol] 650 mg PO Q6HR PRN tab 12/17/16 Magnesium Oxide [Mag-Ox] 400 mg PO DAILY #30 tab 12/17/16 Warfarin perPT [Coumadin perPT] 6 mg PO DAILY@1800 PRN #30 each 12/17/16 Allergies Allergy/AdvReac Type Severity Reaction Status Date / Time No Known Allergies Allergy Verified 11/14/16 03:04 All systems ED: reviewed and negative except as stated. Constitutional: Denies: fever, chills, weakness, weight change Eyes: Denies: eye pain, eye discharge, vision change ENT ED: Denies: ear pain, throat pain, dental pain, hearing loss, epistaxis, congestion, dysphagia Cardiovascular: Reports: as per HPI, chest pain. Denies: palpitations, dyspnea on exertion, edema, syncope Respiratory: Reports: as per HPI, dyspnea. Denies: cough, wheezes, hemoptysis, stridor Gastrointestinal: Reports: as per HPI, nausea. Denies: abdominal pain, vomiting , diarrhea, constipation, hematemesis, melena, hematochezia Genitourinary: Denies: urgency, dysuria, frequency, hematuria Musculoskeletal: Denies: back pain, neck pain, arthralgia, myalgia Integumentary: Denies: rash, abrasion, lesions Neurological: Denies: headache, weakness, numbness, paresthesias, confusion, abnormal gait, vertigo Psychiatric: Denies: anxiety, depression, suicidal thoughts, homicidal thoughts , auditory hallucinations, visual hallucinations Endocrine: Denies: fatigue Hematological/Lymphatic: Denies: easy bleeding, easy bruising Allergic/Immunologic: Denies: facial swelling, urticaria Chest Pain PMH - Past Medical History Medical history: Reports: arthritis, cancer, coronary artery disease, GERD, hyperlipidemia, hypertension Surgical history: Reports: orthopedic, other Psychiatric history: Reports: no psych history - Social History Smoking Status: Never smoker Alcohol use: Reports: none Drug use: Reports: none Physical Exam - General Limitations: no limitations General appearance: alert, in no apparent distress - Head Head exam: atraumatic, normocephalic, normal inspection - Eye Eye exam: Present: normal appearance, PERRL, EOMI. Absent: nystagmus - ENT ENT exam: mucous membranes moist - Neck Neck exam: Present: normal inspection, full ROM, trachea midline - Chest Chest inspection: Present: normal inspection, symmetric chest wall rise. Absent : tenderness - Respiratory Respiratory exam: Present: normal lung sounds bilaterally. Absent: respiratory distress, wheezes, stridor, accessory muscle use, prolonged expiratory phase - Cardiovascular Cardiovascular exam: Present: regular rate, normal rhythm, normal heart sounds - Abdominal Exam Abdominal exam: Present: soft, Non-Tender, normal bowel sounds. Absent: tenderness, distention, guarding, rebound, rigidity - Extremities Exam Extremities exam: Present: normal inspection, full ROM. Absent: tenderness, pedal edema - Neurological Exam Neurological exam: Present: alert, oriented X3 - Psychiatric Psychiatric exam: Present: normal affect, normal mood - Skin Skin exam: Present: warm, dry, intact, normal color Course Course Narrative: I have discussed this patient's case with Dr. Ortiz. Dr. Ortiz has had a [id number] evaluation with the patient and agrees to admit the patient to the hospitalist service after being notified of a critical high troponin of 0.04. 0355: I spoke with Dr. Maldonado of the hospitalist service who has accepted the patient for admission. Vital Signs Temperature 98.1 F 12/20/16 02:45 Pulse Rate 82 12/20/16 02:45 Respiratory Rate 20 12/20/16 02:45 Blood Pressure 141/96 12/20/16 02:45 O2 Sat by Pulse Oximetry 98 12/20/16 02:45 Temperature 98.1 F 12/20/16 02:45 Pulse Rate 71 12/20/16 03:58 Respiratory Rate 16 12/20/16 03:58 Blood Pressure 147/90 12/20/16 03:58 O2 Sat by Pulse Oximetry 96 12/20/16 03:58 Oxygen Delivery Oxygen Delivery Room Air Chest Pain - Medical Records Medical records reviewed: Yes I reviewed the patient's medical records. - Lab Data Lab results reviewed: Yes I reviewed the patient's lab results. Lab results narrative: Laboratory Last Values WBC 9.1 K/mcL (4.3-11.1) 12/20/16 02:42 RBC 4.68 M/mcL (4.19-5.50) 12/20/16 02:42 Hgb 12.3 g/dL (12.9-16.9) L 12/20/16 02:42 Hct 38.7 % (37.5-50.1) 12/20/16 02:42 MCV 82.7 fL (83.0-100.0) L 12/20/16 02:42 MCH 26.3 pg (28.0-33.3) L 12/20/16 02:42 MCHC 31.8 g/dL (31.6-35.5) 12/20/16 02:42 RDW 17.4 % (11.5-14.5) H 12/20/16 02:42 Plt Count 240 K/mcL (140-400) 12/20/16 02:42 MPV 9.6 fL (9.4-12.4) 12/20/16 02:42 Immature Gran % 0.3 % (0-4) 12/20/16 02:42 Seg Neutrophils % 67.3 % 12/20/16 02:42 Lymphocytes % 22.8 % 12/20/16 02:42 Monocytes % 8.6 % 12/20/16 02:42 Eosinophils % 0.7 % 12/20/16 02:42 Basophils % 0.3 % 12/20/16 02:42 Neutrophils # 6.1 K/mcL (1.6-8.9) 12/20/16 02:42 Lymphocytes # 2.1 K/mcL (0.6-4.6) 12/20/16 02:42 Monocytes # 0.8 K/mcL (0.0-1.3) 12/20/16 02:42 Eosinophils # 0.1 K/mcL (0.0-0.6) 12/20/16 02:42 Basophils # 0.0 K/mcL (0.0-0.2) 12/20/16 02:42 PT 31.3 Seconds (9.4-12.1) H 12/20/16 02:42 INR 2.8 12/20/16 02:42 APTT 40.0 Seconds (26.0-36.0) H D 12/20/16 02:42 Sodium 138 mEq/L (136-145) 12/20/16 02:42 Potassium 4.6 mEq/L (3.5-4.5) H 12/20/16 02:42 Chloride 104 mEq/L (98-109) 12/20/16 02:42 Carbon Dioxide 23 mEq/L (19-29) 12/20/16 02:42 BUN 42 mg/dL (8-26) H 12/20/16 02:42 Creatinine 2.11 mg/dL (0.72-1.25) H 12/20/16 02:42 Est GFR ( Amer) 37 (> 60) L 12/20/16 02:42 Est GFR (Non-Af Amer) 31 (> 60) L 12/20/16 02:42 BUN/Creatinine Ratio 20 (6-26) 12/20/16 02:42 Glucose 101 mg/dL (70-99) H 12/20/16 02:42 Calculated Osmolality 297 (280-300) 12/20/16 02:42 Calcium 9.5 mg/dL (8.6-10.8) 12/20/16 02:42 Troponin I 0.04 ng/mL (0-0.03) H* 12/20/16 02:42 Result diagrams: 12/20/16 02:42 12/20/16 02:42 Lab Results 12/20/16 12/20/16 12/20/16 Range/Units 02:42 02:42 02:42 WBC 9.1 (4.3-11.1) K/mcL RBC 4.68 (4.19-5.50) M/mcL Hgb 12.3 L (12.9-16.9) g/dL Hct 38.7 (37.5-50.1) % MCV 82.7 L (83.0-100.0) fL MCH 26.3 L (28.0-33.3) pg MCHC 31.8 (31.6-35.5) g/dL RDW 17.4 H (11.5-14.5) % Plt Count 240 (140-400) K/mcL MPV 9.6 (9.4-12.4) fL Immature Gran % 0.3 (0-4) % Seg Neutrophils % 67.3 % Lymphocytes % 22.8 % Monocytes % 8.6 % Eosinophils % 0.7 % Basophils % 0.3 % Neutrophils # 6.1 (1.6-8.9) K/mcL Lymphocytes # 2.1 (0.6-4.6) K/mcL Monocytes # 0.8 (0.0-1.3) K/mcL Eosinophils # 0.1 (0.0-0.6) K/mcL Basophils # 0.0 (0.0-0.2) K/mcL PT 31.3 H (9.4-12.1) Seconds INR 2.8 APTT 40.0 H D (26.0-36.0) Seconds Sodium 138 (136-145) mEq/L Potassium 4.6 H (3.5-4.5) mEq/L Chloride 104 (98-109) mEq/L Carbon Dioxide 23 (19-29) mEq/L BUN 42 H (8-26) mg/dL Creatinine 2.11 H (0.72-1.25) mg/dL Est GFR ( Amer) 37 L (> 60) Est GFR (Non-Af Amer) 31 L (> 60) BUN/Creatinine Ratio 20 (6-26) Glucose 101 H (70-99) mg/dL Calculated Osmolality 297 (280-300) Calcium 9.5 (8.6-10.8) mg/dL Magnesium (1.6-2.6) mg/dL Troponin I (0-0.03) ng/mL 12/20/16 12/20/16 Range/Units 02:42 02:42 WBC (4.3-11.1) K/mcL RBC (4.19-5.50) M/mcL Hgb (12.9-16.9) g/dL Hct (37.5-50.1) % MCV (83.0-100.0) fL MCH (28.0-33.3) pg MCHC (31.6-35.5) g/dL RDW (11.5-14.5) % Plt Count (140-400) K/mcL MPV (9.4-12.4) fL Immature Gran % (0-4) % Seg Neutrophils % % Lymphocytes % % Monocytes % % Eosinophils % % Basophils % % Neutrophils # (1.6-8.9) K/mcL Lymphocytes # (0.6-4.6) K/mcL Monocytes # (0.0-1.3) K/mcL Eosinophils # (0.0-0.6) K/mcL Basophils # (0.0-0.2) K/mcL PT (9.4-12.1) Seconds INR APTT (26.0-36.0) Seconds Sodium (136-145) mEq/L Potassium (3.5-4.5) mEq/L Chloride (98-109) mEq/L Carbon Dioxide (19-29) mEq/L BUN (8-26) mg/dL Creatinine (0.72-1.25) mg/dL Est GFR ( Amer) (> 60) Est GFR (Non-Af Amer) (> 60) BUN/Creatinine Ratio (6-26) Glucose (70-99) mg/dL Calculated Osmolality (280-300) Calcium (8.6-10.8) mg/dL Magnesium 1.4 L (1.6-2.6) mg/dL Troponin I 0.04 H* (0-0.03) ng/mL - Radiology Data Radiology results reviewed: Yes I reviewed the patient's radiology results. Chest X-Ray 12/20/16 02:52 IMPRESSION: No radiographic evidence of acute cardiopulmonary disease. D/ / Mickey Valentine / Mickey Valentine Interpreting Provider: Mickey Valentine - EKG Data EKG attestation: Yes I reviewed and interpreted this EKG. EKG results narrative: EKG reviewed by Dr. Ortiz as well. EKG shows a sinus rhythm with a right bundle branch block and left ventricular hypertrophy at a rate of 82 bpm. RI interval 203, QRS duration 144, QT/QTC intervals 385/424. No ectopy noted. No STEMI. Heart Score - Score History: Highly Suspicious EKG: Non Specific repolarisation Disturbance Age: Greater than 65 Risk Factors: Equal/Greater than 3 risk factor or history of atherosclerotic disease Troponin: 1-3x normal limit HEART Score Total: 8 Attestation Statement - Attestation Attestation: I, Bhaskar Ortiz MD, personally evaluated this patient and discussed their management with the midlevel provicer, PAC/PHYSICAL THERAPIST AIDE. I reviewed the midlevel provider 's note and agree with the documented findings, medical decision making, and plan of care. 76-year-old male presents to the emergency department with a complaint of substernal chest pains which started about 10 PM last evening. He states the pain comes and goes. He went to sleep and then awoke with the chest pain. He does admit to some shortness of breath and nausea and mild diaphoresis associated with the chest pain. Pain relieved with nitroglycerin. On examination patient is a well-developed well-nourished elderly male in no acute distress. He is alert and oriented 3. There is no cyanosis or diaphoresis. Chest is nontender to palpation. Breath sounds are clear and equal bilaterally. Heart regular rate and rhythm. Abdomen soft and nontender with normal bowel sounds. Labs reviewed. Troponin 0.04. Chest x-ray negative. No acute changes noted on EKG. The hospitalist, Dr. Maldonado, was consulted and accepted admission of the patient.
[2016-12-20 03:00] LABS: Basophils % 0.3 %; Eosinophils # 0.1 K/mcL (0.0-0.6); Eosinophils % 0.7 %; Hematocrit 38.7 % (37.5-50.1); Hemoglobin 12.3 g/dL (12.9-16.9); Immature Granulocytes % 0.3 % (0-4); Lymphocytes # 2.1 K/mcL (0.6-4.6); Lymphocytes % 22.8 %; Mean Corpuscular HGB Conc 31.8 g/dL (31.6-35.5); Mean Corpuscular Hemoglobin 26.3 pg (28.0-33.3); Mean Corpuscular Volume 82.7 fL (83.0-100.0); Mean Platelet Volume 9.6 fL (9.4-12.4); Monocytes # 0.8 K/mcL (0.0-1.3); Monocytes % 8.6 %; Neutrophils # 6.1 K/mcL (1.6-8.9); Platelet Count 240 K/mcL (140-400); Red Blood Count 4.68 M/mcL (4.19-5.50); Red Cell Distribution Width 17.4 % (11.5-14.5); Segmented Neutrophils % 67.3 %
[2016-12-20 03:05] LABS: INR 2.8; Prothrombin Time 31.3 Seconds (9.4-12.1)
[2016-12-20 03:15] LABS: Calcium 9.5 mg/dL (8.6-10.8)
[2016-12-20 03:16] LABS: Potassium 4.6 mEq/L (3.5-4.5)
[2016-12-20] MEDS ORDERED: Ondansetron 4 MG/2 ML VIAL IVP PRN (04:11)
[2016-12-20] MEDS ORDERED: Naloxone 0.4 MG/ML INJ IVP PRN (04:11)
[2016-12-20] MEDS ORDERED: Acetaminophen 325 MG TABLET PO PRN (04:12)
[2016-12-20] MEDS ORDERED: Magnesium Sulfate 2 GM in D5% in Water 100 ML IVPB ONE ×2 (04:15→07:46)
[2016-12-20] MEDS ORDERED: Albuterol 2.5 MG/3 ML NEBULIZER IH PRN (04:20)
--- NOTE | 2016-12-20 04:20 | Internal Med History&Physical ---
Date of Encounter: 12/20/16 Time of Encounter: 04:18 Assessment and Plan (1) Chest pain Current visit: Yes Status: Acute patient with family hx of CAD but no personally documented CAD though he has risk factors comes in with chest pain with a mixture of both typical and atypical features, it will be reasonable to order a stress test in an attempt to r/o ACS, will check A1c and Lipid profile if none performed in the past 3 months, NPO until test, admit for telemonitoring, family to take event monitor home meanwhile, cycle troponin, Qualifiers: Chest pain type: precordial pain Qualified Code(s): R07.2 - Precordial pain (2) Hypomagnesemia Current visit: Yes Status: Acute recurrent in nature with unknown etiology, he is on supplement at home but yet came in with low levels at 1.4, we will replace and follow BMP (3) Elevated troponin I level Current visit: Yes Status: Acute he has chronically elevated troponin, peak of 0.19, this is one of the lowest he has had but in the setting of concerning chest pain we cannot dismiss it, we will cycle this whilst planning a stress test (4) Hyperkalemia Current visit: Yes Status: Acute most likely from exogenous intake, we have stopped it for now, will follow BMP (5) HTN (hypertension) Current visit: Yes Status: Chronic will continue home antihypertensive regimen with BP monitoring Qualifiers: Hypertension type: essential hypertension Qualified Code(s): I10 - Essential (primary) hypertension (6) GERD (gastroesophageal reflux disease) Current visit: Yes Status: Chronic will continue PPI Qualifiers: Esophagitis presence: without esophagitis Qualified Code(s): K21.9 - Gastro -esophageal reflux disease without esophagitis (7) Atrial flutter Current visit: Yes Status: Resolved though this has resolved post cardioversion it is worth mentioning because pt is on an event monitor and systemic anticoagulation Qualifiers: Atrial flutter type: typical Qualified Code(s): I48.3 - Typical atrial flutter (8) Hypothyroidism Current visit: Yes Status: Chronic will continue home synthroid dose Qualifiers: Hypothyroidism type: acquired Qualified Code(s): E03.9 - Hypothyroidism, unspecified Internal Medicine - H&P: HPI Chief complaint: Chest pain Admitted From: Emergency Dept Plans for Post Hospital Care: Home History of present illness: Mr. Mazariegos is a 76 year old male with a history of HTN recently diagnosed Atrial flutter s/p cardioversion on systemic anticoagulation and also on an event monitor was rushed to the ER of [place] today for chest pain. He reports that he was sleeping when he was rudely awoken with chest pain. It was sudden in onset, located in the substernal area, gradually worsening in severity as time went by. It was dull in character but transformed to sharp pain and eventually squeezing. The severity was 10/10 at the peak and improved to 8/10 after he took 2 nitro tablets. There was no radiation of his pain. It was constant, associated with dyspnea, nausea but no vomiting, had associated feeling of apprehension enough for him to wake his up, he also had diaphoresis and lightheadedness. He denied palpitations. His last stress test was in 2014 and was unremarkable, he has not had any documented CAD. Father had ND in his 70's so did his brother around the same age range. 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 FAMILY HISTORY Both parents are , father had HTN, mother had cancer unknown type, father had ND in his 70's so was his brother Past Med Surg Social Fam HX - Past Medical History Medical history: arthritis, cancer, coronary artery disease, GERD, hyperlipidemia, hypertension Psychiatric history: no psych history - Past Surgical History Surgical History: orthopedic, other - Social History Smoking Status: Never smoker Smokeless Tobacco Status: No Alcohol use: none Drug use: none - Family History Mother Living Status: Hx Family Cancer: Yes ("blood") Father Living Status: Hx Family Cardiac Disorders: Yes Hx Family Respiratory Disorders: No Hx Family Cancer: No Hx Family GI Disorders: No Hx Family Endocrine Disorder: No (GRANDMOTHER WAS DIABETIC) Hx Family Neuromuscular Disorders: No Hx Family Neurologic Disorders: No Hx Family HEENT Disorders: No Hx Family Autoimmune Disorders: No Internal Medicine - H&P: Meds Acitretin [Soriatane] 10 mg PO BID 07/24/16 [History] Atorvastatin [Lipitor] 40 mg PO HS 07/24/16 [History] Ciclopirox [Loprox] 120 ml TP 3XW 07/24/16 [History] Ergocalciferol (VITAMIN D2) [Vitamin D2] 50,000 unit PO FLORES 07/24/16 [History] Finasteride [Proscar] 5 mg PO DAILY 07/24/16 [History] FluocinoNIDE 0.05% CRM [Lidex] 1 appl TP 3XW 07/24/16 [History] Fluticasone/Salmeterol [Advair Hfa 230-21 Mcg Inhaler] 2 puff IH BID 07/24/16 [ History] Isosorbide MONOnitrate (24 HR) [Imdur] 60 mg PO DAILY 07/24/16 [History] Levothyroxine [Synthroid] 50 mcg PO 0630 07/24/16 [History] NIFEdipine XL (24 HR) [Procardia XL] 60 mg PO DAILY 07/24/16 [History] Nitroglycerin [Nitrostat] 0.4 mg SL Q5M PRN 07/24/16 [History] Potassium Chloride [Klor-Con] 20 meq PO DAILY 07/24/16 [History] hydroCHLOROthiazide [Hydrochlorothiazide] 25 mg PO DAILY 07/24/16 [History] Aspirin [Lo-Dose Aspirin EC] 81 mg PO DAILY 11/14/16 [History] Fenofibrate Nanocrystallized [Tricor] 145 mg PO DAILY 11/14/16 [History] Ibuprofen [Motrin] 200 mg PO Q6HR PRN 11/14/16 [History] Sucralfate [Carafate] 1 gm PO QIDAC 11/14/16 [History] Dicyclomine [Bentyl] 10 mg PO TID PRN #60 capsule 11/15/16 [Rx] Omeprazole [PriLOSEC] 40 mg PO DAILY@0730 capsule. 11/15/16 [Rx] Albuterol Neb [Proventil Neb] 2.5 mg IH BID 12/06/16 [History] cephALEXin [Keflex] 500 mg PO BID 12/06/16 [History] Acetaminophen [Tylenol] 650 mg PO Q6HR PRN tab 12/17/16 [Rx] Magnesium Oxide [Mag-Ox] 400 mg PO DAILY #30 tab 12/17/16 [Rx] Warfarin perPT [Coumadin perPT] 6 mg PO DAILY@1800 PRN #30 each 12/17/16 [Rx] Allergies No Known Allergies Allergy (Verified 11/14/16 03:04) All Systems PM: A 10-system review of systems was performed and is negative for pertinent findings except as documented above in the HPI. - Constitutional Vitals: Temp Pulse Resp BP Pulse Ox 98.1 F 71 16 147/90 96 12/20/16 02:45 12/20/16 03:58 12/20/16 03:58 12/20/16 03:58 12/20/16 03:58 Internal Med - H&P Results - Labs CBC & Chem 7: 12/20/16 02:42 12/20/16 02:42
[2016-12-20] MEDS ORDERED: Regadenoson 0.4 MG/5 ML SYRINGE IVP ONE ×2 (06:12→13:45)
[2016-12-20] MEDS: Nitroglycerin 0.4 MG TAB.SUBL SL PRN ×3 (06:19→08:19)
[2016-12-20] MEDS ORDERED: *HR* Morphine 2 MG/ML SYRINGE ONE (08:21)
[2016-12-20] MEDS: *HR* Morphine 2 MG/ML SYRINGE IVP ONE ×2 (08:22→08:25)
[2016-12-20] MEDS: Finasteride 5 MG TABLET PO SCH (08:28)
[2016-12-20] MEDS: hydroCHLOROthiazide 25 MG TABLET PO SCH (08:28)
[2016-12-20] MEDS: 0.9 % Sodium Chloride 1,000 ML IVC SCH (08:28)
[2016-12-20] MEDS: Magnesium Oxide 400 MG TABLET PO SCH (08:28)
[2016-12-20] MEDS: Fenofibrate 54 MG TABLET PO SCH (08:28)
[2016-12-20] MEDS: Sucralfate 1 GM TABLET PO SCH ×4 (08:28→21:36)
[2016-12-20] MEDS: NIFEdipine XL (24 HR) 60 MG TAB.ER.24 PO SCH (08:28)
[2016-12-20] MEDS: Isosorbide MONOnitrate (24 HR) 60 MG TAB.ER.24H PO SCH (08:28)
[2016-12-20] MEDS: Aspirin Enteric Coated 81 MG Tablet PO SCH (08:29)
[2016-12-20] MEDS: ACITRETIN 10 MG PO SCH ×2 (08:30→21:37)
[2016-12-20] MEDS ORDERED: POTASSIUM CHLORIDE 20 MEQ PO SCH (09:00)
--- NOTE | 2016-12-20 09:15 | Cardiology Consult Note ---
Date of Encounter: 12/20/16 Time of Encounter: 08:45 Assessment and Plan (1) Chest pain, rule out acute myocardial infarction Current Visit: Yes Status: Acute Patient has history of CAD and a CHADS2 score of 4. Troponin on arrival was 0.04 , however his baseline troponin is usually elevated. EKG on arrival showed a sinus rhythm with no ST elevations and no acute changes when compared to his EKG from 12/11/2016. His last stress test was in 2014. I recommend a nuclear stress test which the primary managing team has already ordered. A stat troponin was also ordered before we proceed with the stress test. (2) History of atrial flutter Current Visit: Yes Status: Resolved Patient was cardioverted on 12/10/2016 to a junctional rhythm and has an ECAT monitor. (3) Elevated troponin I level Current Visit: Yes Status: Acute Troponin upon arrival was 0.04, but as stated he has an baseline of elevated troponin levels. Stat Troponin lab was ordered. Will continue to monitor. (4) CAD (coronary artery disease) Current Visit: No Status: Chronic Patient is currently on Coumadin. He has a CHADS2 score of 4. Nuclear stress test was ordered by primary managing team. Qualifiers: Coronary Disease-Associated Artery/Lesion type: [place] artery [place] vs. transplanted heart: [place] heart Associated angina: angina presence unspecified Qualified Code(s): I25.10 - Atherosclerotic heart disease of [place] coronary artery without angina pectoris Discussion w patient/family: The assessment and plan as outlined above was discussed with the patient and/or family members who expressed understanding and agreement. All questions were answered. Thank you for involving us in the care of your patient. Please call with any questions. History of Present Illness Consult date: 12/20/16 Requesting physician: Leslie Wood Consult reason: Chest pain, trop 0.04, cardioverted last week Chief complaint: Chest pain History of present illness: Mr. Mazariegos is a 76 year old male with a PMH of CAD and HTN that presented to the ED today for chest pain. Upon waking up this morning, he started to experience shortness of breath and intense pressure on his chest, describing it as a 10/10 on the pain scale. He denies any radiation to the jaw or upper arm. He subsequently took 2 nitroglycerin tabs and said it diminished his pain to a 8 /10. His troponin on arrival was 0.04. He was recently admitted to our hospital on 12/06/2016 for chest pain and atrial flutter RVR. He was then cardioverted to a junctional rhythm on 12/10/16 and given an ECAT monitor. Given his CHADS2 score of 4 he was discharged with coumadin. His last echo was on 11/14/16 and showed a LVEF of 65%. Current chest x-ray shows no signs of cardiopulmonary disease. He currently denies any chest pain, shortness of breath, or palpitations. Past Med Surg Social Fam HX - Past Medical History Medical history: arthritis, cancer, coronary artery disease, GERD, hyperlipidemia, hypertension Psychiatric history: no psych history - Past Surgical History Surgical History: orthopedic, other - Social History Smoking Status: Never smoker Smokeless Tobacco Status: No Alcohol use: none Drug use: none - Family History Mother Living Status: Hx Family Cancer: Yes ("blood") Father Living Status: Hx Family Cardiac Disorders: Yes Hx Family Respiratory Disorders: No Hx Family Cancer: No Hx Family GI Disorders: No Hx Family Endocrine Disorder: No (GRANDMOTHER WAS DIABETIC) Hx Family Neuromuscular Disorders: No Hx Family Neurologic Disorders: No Hx Family HEENT Disorders: No Hx Family Autoimmune Disorders: No Medications and Allergies Acitretin [Soriatane] 10 mg PO BID 07/24/16 [History] Atorvastatin [Lipitor] 40 mg PO DAILY 07/24/16 [History] Ciclopirox [Loprox] 120 ml TP 3XW 07/24/16 [History] Ergocalciferol (VITAMIN D2) [Vitamin D2] 50,000 unit PO FLORES 07/24/16 [History] Finasteride [Proscar] 5 mg PO DAILY 07/24/16 [History] FluocinoNIDE 0.05% CRM [Lidex] 1 appl TP 3XW 07/24/16 [History] Fluticasone/Salmeterol [Advair Hfa 230-21 Mcg Inhaler] 2 puff IH BID 07/24/16 [ History] Isosorbide MONOnitrate (24 HR) [Imdur] 60 mg PO DAILY 07/24/16 [History] Levothyroxine [Synthroid] 50 mcg PO DAILY 07/24/16 [History] Nitroglycerin [Nitrostat] 0.4 mg SL Q5M PRN 07/24/16 [History] Potassium Chloride [Klor-Con] 20 meq PO DAILY 07/24/16 [History] hydroCHLOROthiazide [Hydrochlorothiazide] 25 mg PO DAILY 07/24/16 [History] Aspirin [Lo-Dose Aspirin EC] 81 mg PO DAILY 11/14/16 [History] Fenofibrate Nanocrystallized [Tricor] 145 mg PO DAILY 11/14/16 [History] Ibuprofen [Motrin] 200 mg PO Q6HR PRN 11/14/16 [History] Sucralfate [Carafate] 1 gm PO QIDAC 11/14/16 [History] Dicyclomine [Bentyl] 10 mg PO TID PRN #60 capsule 11/15/16 [Rx] Albuterol Neb [Proventil Neb] 2.5 mg IH BID 12/06/16 [History] Acetaminophen [Tylenol] 650 mg PO Q6HR PRN tab 12/17/16 [Rx] Metoprolol XL (24 HR) Succ [Toprol XL] 25 mg PO DAILY 12/20/16 [History] Mupirocin [Bactroban Oint] 1 appl TP DAILY 12/20/16 [History] Omeprazole [PriLOSEC] 40 mg PO BID 12/20/16 [History] Warfarin Sodium [Coumadin] 6 mg PO DAILY 12/20/16 [History] Allergies No Known Allergies Allergy (Verified 11/14/16 03:04) All Systems Review: A 10-system review of systems was performed and is negative for pertinent findings except as documented above in the HPI. - Constitutional Constitutional: stops breathing during sleep (Patient has history of MICHAEL.), no fatigue, no headache(s), no weakness - EENT Eyes: no blurred vision - Cardiovascular Cardiovascular: no chest pain at rest, no dyspnea at rest, no irregular heart rhythm, no radiating jaw, neck or arm pain, no leg edema, no lightheadedness, no orthopnea, no palpitations, no rapid heart rate, no syncope - Respiratory Respiratory: no cough, no dyspnea - Gastrointestinal Gastrointestinal: no abdominal pain, no constipation, no diarrhea, no hematochezia, no melena, no nausea - Genitourinary Genitourinary: no hematuria - Neurological Neurological: no numbness, no tingling Physical Examination Vital Signs, Last 4 Hours Temp Pulse Resp BP Pulse Ox 12/20/16 08:26 80 146/82 12/20/16 08:19 156/102 12/20/16 07:23 81 116/71 12/20/16 07:19 85 172/100 100 12/20/16 07:16 97.7 F 95 190/109 95 12/20/16 06:58 97.7 F 71 16 154/84 98 General: Conversant Neck: No JVD, Normal carotid pulses Cardiac: Reg Rate and Rhythm, Normal S1 and S2, No Murmur Lungs: Normal Breath Sounds, No Wheeze, Rales, Rhonchi Neuro: Alert and responsive Abdomen: Soft, Non-Tender Musculoskeletal: No Chest Wall Tenderness Extremities: No Clubbing, No Cyanosis, No Edema Results 12/20/16 02:42 12/20/16 02:42 - Imaging and Cardiology Chest Xray: report reviewed ([facility] cardiopulmonary disease.) Stress Test: pending (Nuclear stress test ordered.) - EKG Interpretation EKG results cardiology: personally reviewed (Compared current EKG to one from and shows no significant changes. No ST elevations.) Consult Discharge Plan - Plan Referrals: Noel Petty DO [Primary Care Provider] -
[2016-12-20] MEDS: Budesonide/Formoterol 160/4.5 MDI IH SCH ×2 (11:25→20:44)
--- NOTE | 2016-12-20 11:44 | Internal Med Progress Note ---
Date of Encounter: 12/20/16 Time of Encounter: 08:05 - Assessment and plan (1) Chest pain Current Visit: Yes Status: Acute Assessment and plan: Pt has had multiple episodes of sharp chest pain, one of which awakened him from sleep. He had another episode while I was in the room with him this a.m. Pt became pale, clammy, nauseated, pain lasted approx 3-4 minutes and appears to have been relieved with nitro SL. He denies radiation or pain, pt was not SOB and was actually holding his breath during the episode. He has been seen by cardiology and will have a stress test today. Initial and 2nd troponins elevated to 0.04. Pt was admitted and cardioverted on 12/10/16 for a-flutter. Last echo was with an EF of 65%. Chest xray is negative for acute process. Stress pending Cardiology has been consulted Electric [employer] Inspector And Repairer labs/vital signs Qualifiers: Chest pain type: precordial pain Qualified Code(s): R07.2 - Precordial pain (2) Hypomagnesemia Current Visit: Yes Status: Acute Assessment and plan: 1.4. Pt was given Mag sulfate 2g IV. Will recheck and continue to monitor. (3) GERD (gastroesophageal reflux disease) Current Visit: Yes Status: Chronic Assessment and plan: Chronic. Continue home medications. Qualifiers: Esophagitis presence: without esophagitis Qualified Code(s): K21.9 - Gastro -esophageal reflux disease without esophagitis (4) Atrial flutter Current Visit: Yes Status: Resolved Assessment and plan: Pt was cardioverted approximately 2 weeks ago for a-flutter. He is wearing an event monitor. Pt is on Coumadin. Pharmacy is dosing. Qualifiers: Atrial flutter type: typical Qualified Code(s): I48.3 - Typical atrial flutter (5) Hypothyroidism Current Visit: Yes Status: Chronic Assessment and plan: Chronic. Continue home dose of medications. Qualifiers: Hypothyroidism type: acquired Qualified Code(s): E03.9 - Hypothyroidism, unspecified (6) HTN (hypertension) Current Visit: Yes Status: Chronic Assessment and plan: Chronic. Monitor BP closely. Continue home medications. Qualifiers: Hypertension type: essential hypertension Qualified Code(s): I10 - Essential (primary) hypertension (7) Elevated troponin I level Current Visit: Yes Status: Acute Assessment and plan: Plan as above. Flat and adynamic. Cardiology is consulted and will continue with stress test. (8) CAD (coronary artery disease) Current Visit: No Status: Chronic Assessment and plan: Continue Aspirin, IMdur, Zocor, Coumadin. Last stress in 2014. Stress today after noon. Cardiology is following. Qualifiers: Coronary Disease-Associated Artery/Lesion type: [place] artery [place] vs. transplanted heart: [place] heart Associated angina: angina presence unspecified Qualified Code(s): I25.10 - Atherosclerotic heart disease of [place] coronary artery without angina pectoris (9) DVT prophylaxis Current Visit: No Status: Acute Assessment and plan: Pt is on Coumadin, pharmacy to dose. Pt has been ambulatory. Observation pt. - Time Spent With Patient less than 15 minutes - Constitutional Vitals: Temp Pulse Resp BP Pulse Ox 97.7 F 65 18 132/73 99 12/20/16 10:50 12/20/16 10:50 12/20/16 10:50 12/20/16 10:50 12/20/16 10:50 General appearance: Present: cooperative, A&O X 3, pleasant, severe distress, answers questions appropriately - Head Head exam: Present: normal inspection - Eye Eye exam: Present: normal appearance, conjuntiva pink - ENT ENT exam: Present: mucous membranes moist, normal exam, normal external ear exam - Neck Neck exam general surgery: Present: normal inspection. Absent: lymphadenopathy , tenderness - Respiratory Respiratory exam: Present: CTAB. Absent: chest wall tenderness, rales, respiratory distress, rhonchi, stridor, wheezes - Cardiovascular Cardiovascular exam: Present: RRR, +S1, +S2. Absent: clicks, diastolic murmur, gallop, systolic murmur - Expanded Cardiovascular Exam Peripheral pulses: 1+: Dorsalis Pedis (L) PM, Dorsalis Pedis (R) PM, 2+: Radial (L), Radial (R) - GI/Abdominal GI/Abdominal exam: Present: normal bowel sounds, soft. Absent: hepatomegaly, tenderness - Extremities Exam Extremities exam: Present: normal inspection, warm, radial pulses palpable and symetrical. Absent: cyanotic, pedal edema, tenderness - Neurological Exam Neurological exam: Present: alert, oriented X3. Absent: no focal deficits, facial droop, speech deficit - Skin Skin exam: Present: dry, intact, warm Internal Medicine: Result - Labs CBC & Chem 7: 12/20/16 02:42 12/20/16 02:42 Labs: Cardiac Enzymes 12/20/16 Range/Units 09:57 Troponin I 0.04 H* (0-0.03) ng/mL - ABG Interpretation ABG results: PT/INR, D-dimer PT 31.3 Seconds (9.4-12.1) H 12/20/16 02:42 Consult Discharge Plan - Plan Referrals: Noel Petty DO [Primary Care Provider] -
--- NOTE | 2016-12-20 14:50 | Nuclear Medicine Stress Report ---
Regadenoson Nuclear Stress Name: Gonzales Mazariegos Date of Study: 12/20/2016 Date: 1940 Ht: 69.0 in Medical Record#: [id number] Age: 76 Wt: 165.0 lb Gender: Male Order #: [id number] Location: [facility] Room: [facility] Supervising Provider: Lisy Stanford CNP Reading Physician: Nela Underwood DO Ordering Physician: Leslie Wood CNP Primary Care Physician: Trang Petty DO Stress Technologist: aKpil Molina CRT Pin Drafting Machine Tender: Lucas Mckeon Indications: Chest Pain Impression: Bowel wall artifact limits interpretation of the inferior wall. Other segments demonstrate normal rest and stress perfusion without evidence for ischemia or infarct. Pharmacologic ECG was negative for ischemia at the level of heart rate achieved. Gated EF = >70%. History: Hypertension Stress Test Summary: Stress Test Type: Pharmacologic Regadenoson 0.4mg/5ml given IV Baseline Information: Initial Heart Rate: 71 Blood Pressure: 144/74 Stress Information: Test Terminated Due to (primary): As per protocol Maximum Blood Pressure: 130/68 Maximum Heart Rate: 92 Percent Maximum Heart Rate Achieved: 65 Double Product: [id number] METS Reached: 1 Symptoms: No chest symptoms Nuclear Summary: SPECT myocardial perfusion imaging using [id number] Sestamibi given intravenously was performed at rest and following cardiac stress testing. The resting images were obtained following initial dose of 9.9 mCi. Following stress an additional dose of 30.9 mCi was given at peak exercise or 30 seconds post regadenoson infusion. Medication Given: Time Medication Dose Units Route Findings: Stress Note * Resting ECG demonstrated normal sinus rhythm with IVCD and nonspecific ST abnormalities. * Pharmacologic stress ECG is negative for ischemia at level of heart rate achieved. * No arrhythmias were noted during stress. * Patient had no chest pain during stress. Hemodynamic responses * Normal hemodynamic responses to pharmacologic stress. Study Quality * Study quality was fair. Left Ventricle * The left ventricle is not dilated. TID * No evidence of transient ischemic dilatation. Lung Uptake * There is no evidence of increase lung uptake. Gated EF > 70% * Gated EF > 70%. NORMALS * Normal wall motion. PERFUSION * There is moderate intensity decreased perfusion in the inferior and inferolateral steel. Wall motion is normal in this area. Findings represent artifact. * Other segments demonstrate normal rest and stress radiotracer uptake. Updated by Nela Underwood on 12/20/2016 2:43:06 PM electronically signed on 12/20/2016 2:46:41 PM with status of Final
--- NOTE | 2016-12-20 15:10 | Event Note ---
Date of Encounter: 12/20/16 Time of Encounter: 15:08 - Cardiology Event Note Stress test resulted--bowel wall artifact limits interpretation of inferior wall. Other segments demonstrate normal rest and perfusion without evidence of ischemia or infarct. Gated EF >70%. No high risk findings. No further cardiac work-up warranted as inpt. Follow-up as outpt--will coordinate. Added back low dose BB. Continue ASA, Statin, BB, nitrates. Cardiology signing off. Reconsult PRN.
[2016-12-20] MEDS ORDERED: Warfarin perPT PO PRN (18:00)
[2016-12-20] MEDS ORDERED: *HR* Warfarin 3 MG TABLET PO SCH (18:00)
--- NOTE | 2016-12-20 18:06 | Electrocardiograph Report ---
[address] [address] Test Date: 2016-12-20 Pat Name: Gonzales Mazariegos Department: 113 Room: 3B33 Gender: M Client Service Consultant: [id number] : 1940 Requested By: Leslie Wood Order Number: [id number] Reading MD: Adina Taylor Measurements Intervals [place] Rate: 77 P: 44 VT: 216 QRS: -48 QRSD: 130 T: 78 QT: 379 QTc: 411 Interpretive Statements SINUS RHYTHM WITH FIRST DEGREE AV BLOCK RIGHT BUNDLE BRANCH BLOCK LEFT ANTERIOR FASCICULAR BLOCK MODERATE VOLTAGE CRITERIA FOR LVH, CONSIDER NORMAL VARIANT Electronically Signed On 12-20-2016 18:05:13 EDT by Adina Taylor
[2016-12-21] MEDS: 0.9 % Sodium Chloride 1,000 ML IVC SCH ×2 (02:01→08:55)
[2016-12-21 07:25] VITALS: BP 142/76
[2016-12-21 08:37] LABS: INR 2.9; Prothrombin Time 32.5 Seconds (9.4-12.1)
[2016-12-21 08:38] LABS: Basophils % 0.3 %; Eosinophils # 0.1 K/mcL (0.0-0.6); Eosinophils % 1.4 %; Hematocrit 36.9 % (37.5-50.1); Hemoglobin 11.7 g/dL (12.9-16.9); Immature Granulocytes % 0.2 % (0-4); Lymphocytes # 1.3 K/mcL (0.6-4.6); Lymphocytes % 20.1 %; Mean Corpuscular HGB Conc 31.7 g/dL (31.6-35.5); Mean Corpuscular Hemoglobin 26.3 pg (28.0-33.3); Mean Corpuscular Volume 82.9 fL (83.0-100.0); Mean Platelet Volume 9.6 fL (9.4-12.4); Monocytes # 0.5 K/mcL (0.0-1.3); Monocytes % 7.3 %; Neutrophils # 4.6 K/mcL (1.6-8.9); Platelet Count 224 K/mcL (140-400); Red Blood Count 4.45 M/mcL (4.19-5.50); Red Cell Distribution Width 17.3 % (11.5-14.5); Segmented Neutrophils % 70.7 %
[2016-12-21 08:49] LABS: Calcium 9.1 mg/dL (8.6-10.8); Potassium 3.7 mEq/L (3.5-4.5)
[2016-12-21] MEDS: Isosorbide MONOnitrate (24 HR) 60 MG TAB.ER.24H PO SCH (08:55)
[2016-12-21] MEDS: Finasteride 5 MG TABLET PO SCH (08:55)
[2016-12-21] MEDS: NIFEdipine XL (24 HR) 60 MG TAB.ER.24 PO SCH (08:55)
[2016-12-21] MEDS: Fenofibrate 54 MG TABLET PO SCH (08:55)
[2016-12-21] MEDS: Magnesium Oxide 400 MG TABLET PO SCH (08:56)
[2016-12-21] MEDS: hydroCHLOROthiazide 25 MG TABLET PO SCH (08:56)
[2016-12-21] MEDS: Aspirin Enteric Coated 81 MG Tablet PO SCH (08:56)
[2016-12-21] MEDS: Sucralfate 1 GM TABLET PO SCH (08:56)
[2016-12-21] MEDS: ACITRETIN 10 MG PO SCH (09:01)
--- NOTE | 2016-12-21 09:38 | Discharge Summary ---
Date of Encounter: 12/21/16 Time of Encounter: 09:25 - Discharge Diagnosis (1) Chest pain Priority: Primary Status: Acute Comments: Pt denies chest pain since yesterday. Stress test yesterday negative for ischeima or infarcet. GAted EF >70%. Continue current medication regimen. Follow up with cardiology outpatient. Qualifiers: Chest pain type: precordial pain Qualified Code(s): R07.2 - Precordial pain (2) Hypomagnesemia Priority: Secondary Status: Acute (3) GERD (gastroesophageal reflux disease) Priority: Secondary Status: Chronic Comments: Pt denies epigastric pain, n/v, chest pain. Continue home medications. Qualifiers: Esophagitis presence: without esophagitis Qualified Code(s): K21.9 - Gastro -esophageal reflux disease without esophagitis (4) Atrial flutter Priority: Secondary Status: Resolved Comments: History. Cardioverted. EKG SR with 1st degree block. No ST changes. Continue Coumadin Qualifiers: Atrial flutter type: typical Qualified Code(s): I48.3 - Typical atrial flutter (5) Hypothyroidism Priority: Secondary Status: Chronic Comments: Chronic. Continue home medications. Qualifiers: Hypothyroidism type: acquired Qualified Code(s): E03.9 - Hypothyroidism, unspecified (6) HTN (hypertension) Priority: Secondary Status: Chronic Comments: Well controlled in inpatient setting. Continue home medications. Qualifiers: Hypertension type: essential hypertension Qualified Code(s): I10 - Essential (primary) hypertension (7) Elevated troponin I level Priority: Secondary Status: Resolved Comments: Initial level elevated. Flat and adynamic. Returned to WNL. (8) CAD (coronary artery disease) Priority: Secondary Status: Chronic Comments: Pt denies chest pain today. Continue ASA, Imdur, BB, continue Coumadin. Qualifiers: Coronary Disease-Associated Artery/Lesion type: jamul artery [place] vs. transplanted heart: jamul heart Associated angina: angina presence unspecified Qualified Code(s): I25.10 - Atherosclerotic heart disease of jamul coronary artery without angina pectoris (9) CKD (chronic kidney disease) stage 3, GFR 30-59 ml/min Priority: Secondary Status: Chronic Comments: Chronic. Sr Cr and GFR both have returned to pt's baseline. Continue to avoid nephrotoxins and NSAIDs. (10) DVT prophylaxis Priority: Secondary Status: Acute Comments: Pt on coumadin. - Discharge Medications Home Medications: Acitretin [Soriatane] 10 mg PO BID 07/24/16 [History] Atorvastatin [Lipitor] 40 mg PO DAILY 07/24/16 [History] Ciclopirox [Loprox] 120 ml TP 3XW 07/24/16 [History] Ergocalciferol (VITAMIN D2) [Vitamin D2] 50,000 unit PO FLORES 07/24/16 [History] Finasteride [Proscar] 5 mg PO DAILY 07/24/16 [History] FluocinoNIDE 0.05% CRM [Lidex] 1 appl TP 3XW 07/24/16 [History] Fluticasone/Salmeterol [Advair Hfa 230-21 Mcg Inhaler] 2 puff IH BID 07/24/16 [ History] Isosorbide MONOnitrate (24 HR) [Imdur] 60 mg PO DAILY 07/24/16 [History] Levothyroxine [Synthroid] 50 mcg PO DAILY 07/24/16 [History] Nitroglycerin [Nitrostat] 0.4 mg SL Q5M PRN 07/24/16 [History] Potassium Chloride [Klor-Con] 20 meq PO DAILY 07/24/16 [History] hydroCHLOROthiazide [Hydrochlorothiazide] 25 mg PO DAILY 07/24/16 [History] Aspirin [Lo-Dose Aspirin EC] 81 mg PO DAILY 11/14/16 [History] Fenofibrate Nanocrystallized [Tricor] 145 mg PO DAILY 11/14/16 [History] Ibuprofen [Motrin] 200 mg PO Q6HR PRN 11/14/16 [History] Sucralfate [Carafate] 1 gm PO QIDAC 11/14/16 [History] Dicyclomine [Bentyl] 10 mg PO TID PRN #60 capsule 11/15/16 [Rx] Albuterol Neb [Proventil Neb] 2.5 mg IH BID 12/06/16 [History] Acetaminophen [Tylenol] 650 mg PO Q6HR PRN tab 12/17/16 [Rx] Metoprolol XL (24 HR) Succ [Toprol Xl] 25 mg PO DAILY 12/20/16 [History] Mupirocin [Bactroban Oint] 1 appl TP DAILY 12/20/16 [History] Omeprazole [PriLOSEC] 40 mg PO BID 12/20/16 [History] Warfarin Sodium [Coumadin] 6 mg PO DAILY 12/20/16 [History] Budesonide/Formoterol 160/4.5 [Symbicort 160/4.5] 2 puff IH BIDRESP 12/21/16 [Rx ] Omeprazole [PriLOSEC] 40 mg PO DAILY@0730 12/21/16 [Rx] Allergies/Adverse Reactions: Allergies No Known Allergies Allergy (Verified 11/14/16 03:04) Procedures/tests Complete & Pending: Procedures Performed prior 72 hours Category Date Time Status NM terrell perf SPECT multi [NM] Routine Exams 12/20/16 04:17 Taken EKG [ECG 12 lead ECG] [ECG] Stat Y 12/20/16 07:27 Completed SP pharm nuclear stress Routine Y 12/20/16 07:45 Completed Date of admission: 12/20/16 04:09 Primary care physician: Noel Petty Consults: 12/20/16 07:40 Consult to Cardiology [CONS] Routine Comment: Consulting Provider: Cardiology [facility] Reason for Consult: Chest pain, trop 0.04. Cardioverted last week. Time Notified: 07:42 Call Completed: Yes 12/20/16 12:07 Consult to Retanner [CONS] Routine Reason for SW Consult: Readmission Discharging clinician: Leslie Wood Anticipated date of discharge: 12/21/16 - Patient Status Disposition: Home, Self-Care Condition: Good Functional capacity at discharge: uses cane/walker Overall status at discharge: patient is back to baseline - Discharge Instructions Follow Up With: Noel Petty DO [Primary Care Provider] - 12/25/16 1:00 pm (appointment with Jackie Merchant.) Additional Instructions: Follow up with Dr Petty as scheduled. Resume your normal home medications. Follow up with cardiology, they will contact you for an appointment if you don' t have one already. Return to the ER if your symptoms return or worsen, or for any other problems or concerns that you may have. - Diet and Activity Activity: increase activity as tolerated Diet: advance to your usual diet Hospital course: Mr. Mazariegos is a 76 year old male with past medical history of coronary artery disease, MICHAEL, asthma, hypertension, CK D stage III, a flutter with recent cardioversion, GERD, and hypothyroidism. Patient presented to the emergency department on December 20 with complaints of midsternal crushing chest pain that awakened him from sleep. He described it to me has it felt like someone was stabbing and squeezing his heart. He rated the severity 10/10 and seemed to improve with nitroglycerin. He denied radiation of the pain. I did witness one episode where he became pale, clammy, nauseated, and appeared to be holding his breath during the pain. Episode lasted approximately 3-4 minutes. It was relieved with nitroglycerin. Patient was recently admitted on 12/10 with a flutter with RVR. He had a ANTONINO guided cardioversion, he converted from A. fib to junctional rhythm after one attempt. He states that he had no problems until he was awakened on December 20 with the symptoms stated above. Stress test on 12/20 was negative for ischemia or infarct with a gaited EF of > 70 %. Artifact from the bowel wall limited the interpretation of the inferior wall , but other segments showed normal stress perfusion without evidence for ischemia or infarct. Mr. Coffey was seen by cardiology and it was determined that no further testing was needed. He will continue his current medication regimen. Cardiology [employer] added metoprolol 12.5 mg by mouth twice a day , but upon discharge it was noted the patient was already taking Toprol-XL 25 mg by mouth daily. She has decided to stop her order of 12.5mg po bid. EKG SR with 1st degree block and RBBB. Rate 77, LA 216, QRS 130, [id number]. His initial troponin was elevated at 0.04, returned to normal. Chest xray was negative for actue cardiopulmonary process. Pt has denied chest pain since yesterday and states that he feels "great" and is ready to go home. He will continue his normal home medication regimen, no additions or medication changes. He has an appointment with Dr. Petty scheduled and will follow up in the clinic with cardiology. His vitals have remained stable and labs have also been stable. Renal function appears to be at baseline , Sr Cr 1.99, GFR 33. I questioned patient if he had a student loan counselor, he states that he does not, so this may be a topic that he brings up at his hospital follow up visit. Pt is stable and ready for discharge. - Time Spent with Patient Total time spent providing and/or coordinating discharge services: Less than 30 minutes - Constitutional Vitals: Temp Pulse Resp BP Pulse Ox 97.9 F 63 17 142/76 96 12/21/16 07:24 12/21/16 07:24 12/21/16 07:24 12/21/16 07:24 12/21/16 07:24 General appearance: Present: cooperative, A&O X 3, pleasant, severe distress, answers questions appropriately - Head Head exam: Present: normal inspection - Eye Eye exam: Present: normal appearance, conjuntiva pink - ENT ENT exam: Present: mucous membranes moist, normal exam, normal external ear exam - Neck Neck exam general surgery: Present: normal inspection. Absent: lymphadenopathy , tenderness - Respiratory Respiratory exam: Present: decreased breath sounds, CTAB. Absent: rales, respiratory distress, rhonchi, stridor, wheezes - Cardiovascular Cardiovascular exam: Present: RRR, +S1, +S2. Absent: clicks, diastolic murmur, gallop, systolic murmur - GI/Abdominal GI/Abdominal exam: Present: normal bowel sounds, soft. Absent: hepatomegaly, tenderness - Extremities Exam Extremities exam: Present: warm, radial pulses palpable and symetrical. Absent : joint swelling, pedal edema, tenderness - Neurological Exam Neurological exam: Present: alert, oriented X3, no focal deficits. Absent: facial droop, speech deficit - Skin Skin exam: Present: dry, intact, warm
[2016-12-21] MEDS: Budesonide/Formoterol 160/4.5 MDI IH SCH (10:55)
--- NOTE | 2016-12-21 11:00 | Physician Discharge Referral ---
Home Health/Hosp Referral Info Transfer to: Home Health Provider in Charge Post Discharge: PCP - Diagnosis (1) Chest pain Priority: Primary Status: Acute (2) Hypomagnesemia Priority: Secondary Status: Acute (3) GERD (gastroesophageal reflux disease) Priority: Secondary Status: Chronic (4) Atrial flutter Priority: Secondary Status: Resolved (5) Hypothyroidism Priority: Secondary Status: Chronic (6) HTN (hypertension) Priority: Secondary Status: Chronic (7) Elevated troponin I level Priority: Secondary Status: Resolved (8) CAD (coronary artery disease) Priority: Secondary Status: Chronic (9) CKD (chronic kidney disease) stage 3, GFR 30-59 ml/min Priority: Secondary Status: Chronic (10) DVT prophylaxis Priority: Secondary Status: Acute - Respiratory Orders Smoking Cessation: Smoking cessation has been advised. For more information, call the [place] Tobacco Quit Line at 1-073-LTTJ-NOW. - Diet/Nutrition Diet/Nutrition Orders: Regular - Activity Activity Orders: Up ad vita - Services Needed Following services are medically necessary services: Nursing - Transfer Medications Prescriptions: Sucralfate [Carafate] 1 gm PO QIDA #90 tablet Home Medications: Acitretin [Soriatane] 10 mg PO BID 07/24/16 [History] Atorvastatin [Lipitor] 40 mg PO DAILY 07/24/16 [History] Ciclopirox [Loprox] 120 ml TP 3XW 07/24/16 [History] Ergocalciferol (VITAMIN D2) [Vitamin D2] 50,000 unit PO FLORES 07/24/16 [History] Finasteride [Proscar] 5 mg PO DAILY 07/24/16 [History] FluocinoNIDE 0.05% CRM [Lidex] 1 appl TP 3XW 07/24/16 [History] Fluticasone/Salmeterol [Advair Hfa 230-21 Mcg Inhaler] 2 puff IH BID 07/24/16 [ History] Isosorbide MONOnitrate (24 HR) [Imdur] 60 mg PO DAILY 07/24/16 [History] Levothyroxine [Synthroid] 50 mcg PO DAILY 07/24/16 [History] Nitroglycerin [Nitrostat] 0.4 mg SL Q5M PRN 07/24/16 [History] Potassium Chloride [Klor-Con] 20 meq PO DAILY 07/24/16 [History] hydroCHLOROthiazide [Hydrochlorothiazide] 25 mg PO DAILY 07/24/16 [History] Aspirin [Lo-Dose Aspirin EC] 81 mg PO DAILY 11/14/16 [History] Fenofibrate Nanocrystallized [Tricor] 145 mg PO DAILY 11/14/16 [History] Ibuprofen [Motrin] 200 mg PO Q6HR PRN 11/14/16 [History] Sucralfate [Carafate] 1 gm PO QIDAC 11/14/16 [History] Dicyclomine [Bentyl] 10 mg PO TID PRN #60 capsule 11/15/16 [Rx] Albuterol Neb [Proventil Neb] 2.5 mg IH BID 12/06/16 [History] Acetaminophen [Tylenol] 650 mg PO Q6HR PRN tab 12/17/16 [Rx] Metoprolol XL (24 HR) Succ [Toprol Xl] 25 mg PO DAILY 12/20/16 [History] Mupirocin [Bactroban Oint] 1 appl TP DAILY 12/20/16 [History] Omeprazole [PriLOSEC] 40 mg PO BID 12/20/16 [History] Warfarin Sodium [Coumadin] 6 mg PO DAILY 12/20/16 [History] Budesonide/Formoterol 160/4.5 [Symbicort 160/4.5] 2 puff IH BIDRESP 12/21/16 [Rx ] Omeprazole [PriLOSEC] 40 mg PO DAILY@0730 12/21/16 [Rx] Sucralfate [Carafate] 1 gm PO QIDAC #90 tablet 12/21/16 [Rx] Allergies/Adverse Reactions: Allergies No Known Allergies Allergy (Verified 11/14/16 03:04) Certification: Further, I certify that my clinical findings support that this patient is homebound (i.e. absences from home require considerable and taxing effort and are for medical reasons or mormon services or infrequently or short duration when for other reasons) because: Homebound Reason: Patient requires assistance of a person or device to safely leave home, Severity of cardiac or pulmonary status limits activity tolerance Attestation: My signature below is to certify that this patient is under my care and that I, or nurse practitioner, or a physician's community relations assistant working with me, has a face-to -face encounter with this patient.
== END 2016-12-21 11:30 | disposition home health service (06) ==
LOC: EMEROO 02:42 → 3BNU 02:42
PROVIDERS: ADMIT Hospitalist; ATTEND Registered Nurse

== ENCOUNTER 2016-12-23 17:17 | Inpatient (IN) ==
[2016-12-23 18:23] LABS: Basophils % 0.6 %; Eosinophils # 0.1 K/mcL (0.0-0.6); Eosinophils % 1.7 %; Hematocrit 37.2 % (37.5-50.1); Hemoglobin 11.7 g/dL (12.9-16.9); Immature Granulocytes % 0.2 % (0-4); Lymphocytes # 1.5 K/mcL (0.6-4.6); Mean Corpuscular HGB Conc 31.5 g/dL (31.6-35.5); Mean Corpuscular Volume 82.7 fL (83.0-100.0); Mean Platelet Volume 9.8 fL (9.4-12.4); Monocytes # 0.5 K/mcL (0.0-1.3); Monocytes % 8.3 %; Neutrophils # 4.3 K/mcL (1.6-8.9); Platelet Count 260 K/mcL (140-400); Red Cell Distribution Width 17.2 % (11.5-14.5); Segmented Neutrophils % 66.2 %
[2016-12-23 18:27] LABS: INR 2.9
[2016-12-23 18:30] LABS: Activated Partial Thrombo Time 42.3 Seconds (26.0-36.0)
[2016-12-23 18:35] LABS: Calcium 9.3 mg/dL (8.6-10.8); Potassium 3.4 mEq/L (3.5-4.5)
--- NOTE | 2016-12-23 18:55 | Emergency Department Note ---
Disposition Clinical Impression: Chest pain Qualifiers: Chest pain type: unspecified Qualified Code(s): R07.9 - Chest pain, unspecified Disposition: Admitted As Inpatient Condition: Fair Time of Disposition: 19:34 Chest Pain HPI - General Chief Complaint: ED Chest Pain Stated Complaint: Chest Pain, Monitor going off Time Seen by Provider: 12/23/16 18:11 Source: patient Limitations: no limitations Vital Signs Reviewed: Yes Nursing Notes Reviewed: Yes - History of Present Illness HPI Narrative: 76-year-old male history of hypertension hyperlipidemia, presents with chest pain at rest, he said multiple admissions for chest pain. He had had an episode a few hours ago with 9/10 crushing substernal chest pain that lasted for several minutes. This happened a few hours prior to arrival, patient states that his pain is now completely resolved. He had several episodes today substernal chest pain. He previously had a stress test that was negative last week. Pt complaint: chest pain Pain Location: substernal Severity: none, now resolved Severity scale (1-10): 0 Improves with: nothing Worsens with: nothing Associated symptoms: Reports: nausea, dyspnea. Denies: vomiting, diaphoresis Treatments prior to arrival chest pain: none - Related Data Home Medications Medication Instructions Recorded Confirmed Acitretin [Soriatane] 10 mg PO BID 07/24/16 12/23/16 Atorvastatin [Lipitor] 40 mg PO HS 07/24/16 12/23/16 Ciclopirox [Loprox] 120 ml TP 3XW 07/24/16 12/23/16 Ergocalciferol (VITAMIN D2) 50,000 unit PO FLORES 07/24/16 12/23/16 [Vitamin D2] Finasteride [Proscar] 5 mg PO DAILY 07/24/16 12/23/16 FluocinoNIDE 0.05% CRM [Lidex] 1 appl TP 3XW 07/24/16 12/23/16 Fluticasone/Salmeterol [Advair Hfa 2 puff IH BID 07/24/16 12/23/16 230-21 Mcg Inhaler] Isosorbide MONOnitrate (24 HR) 60 mg PO DAILY 07/24/16 12/23/16 [Imdur] Levothyroxine [Synthroid] 50 mcg PO DAILY 07/24/16 12/23/16 Nitroglycerin [Nitrostat] 0.4 mg SL Q5M PRN 07/24/16 12/23/16 Potassium Chloride [Klor-Con] 20 meq PO DAILY 07/24/16 12/23/16 hydroCHLOROthiazide 25 mg PO DAILY 07/24/16 12/23/16 [Hydrochlorothiazide] Aspirin [Lo-Dose Aspirin EC] 81 mg PO DAILY 11/14/16 12/23/16 Fenofibrate Nanocrystallized 145 mg PO DAILY 11/14/16 12/23/16 [Tricor] Ibuprofen [Motrin] 200 mg PO Q6HR PRN 11/14/16 12/23/16 Albuterol Neb [Proventil Neb] 2.5 mg IH BID 12/06/16 12/23/16 Metoprolol XL (24 HR) Succ [Toprol 25 mg PO DAILY 12/20/16 12/23/16 Xl] Mupirocin [Bactroban Oint] 1 appl TP DAILY 12/20/16 12/23/16 Warfarin Sodium [Coumadin] 6 mg PO DAILY 12/20/16 12/23/16 Previous Rx's Medication Instructions Recorded Dicyclomine [Bentyl] 10 mg PO TID PRN #60 capsule 11/15/16 Acetaminophen [Tylenol] 650 mg PO Q6HR PRN tab 12/17/16 Budesonide/Formoterol 160/4.5 2 puff IH BIDRESP 12/21/16 [Symbicort 160/4.5] Omeprazole [PriLOSEC] 40 mg PO DAILY@0730 12/21/16 Sucralfate [Carafate] 1 gm PO QIDAC #90 tablet 12/21/16 Allergies Allergy/AdvReac Type Severity Reaction Status Date / Time No Known Allergies Allergy Verified 12/23/16 17:23 All systems ED: reviewed and negative except as stated. Review of Systems: As Per HPI Constitutional: Denies: fever Cardiovascular: Denies: chest pain Respiratory: Denies: cough Gastrointestinal: Reports: as per HPI. Denies: abdominal pain, nausea Genitourinary: Denies: urgency Musculoskeletal: Denies: back pain Chest Pain PMH - Past Medical History Medical history: Reports: arthritis, cancer, coronary artery disease, GERD, hyperlipidemia, hypertension Surgical history: Reports: orthopedic, other Psychiatric history: Reports: no psych history - Social History Smoking Status: Never smoker Alcohol use: Reports: none Drug use: Reports: none Physical Exam Constitutional: alert and oriented, in NAD, vital signs reviewed and wnl Neck: normal inspection, neck is supple, no JVD Resp: normal chest inspection, CTA bilaterally, no resp distress, no wheezes/ rales/rhonchi CV: RRR, no murmurs/gallops/rubs, S1 and S2 heard Extremity: +2 bilateral radial and posterial tibial pulses, no pedal edema GI: normal inspection, Soft, NTND, no peritoneal signs, no palpable abdominal aortic aneurysm Back: normal inspection, no tenderness to palpation Neuro: A&O3, no gross motor or sensory deficits bilaterally MSK: normal inspection, bilateral UE and LE with normal ROM Skin: No rashes, skin warm, dry, intact - General Limitations: no limitations General appearance: alert, in no apparent distress Course Course Narrative: 76-year-old male with multiple episodes of chest pain, and recent admissions, chest pain workup ordered, chest pain-free currently we will withhold nitroglycerin trial until or if he has recurrent chest pain. Aspirin given - Reevaluation(s) Reevaluation #1: Patient's troponin was 0.03, his EKG shows PVCs, he is admitted for chest pain rule out, possibly candidatecatheterization, Dr Maldonado accepting. Time: 19:34 Vital Signs Temperature 97.9 F 12/23/16 17:18 Pulse Rate 89 12/23/16 17:18 Respiratory Rate 18 12/23/16 17:18 Blood Pressure 163/92 12/23/16 17:18 O2 Sat by Pulse Oximetry 99 12/23/16 17:18 Temperature 98.3 F 12/24/16 11:28 Pulse Rate 66 12/24/16 11:28 Respiratory Rate 15 12/24/16 11:28 Blood Pressure 137/70 12/24/16 11:28 O2 Sat by Pulse Oximetry 97 12/24/16 11:28 Oxygen Delivery Oxygen Delivery Room Air Chest Pain - Differential Diagnosis Likely: unstable angina pectoris, atypical chest pain, chest pain - Medical Records Medical records reviewed: Yes I reviewed the patient's medical records. - Lab Data Lab results reviewed: Yes I reviewed the patient's lab results. Result diagrams: 12/24/16 06:31 12/24/16 06:31 Lab Results 12/23/16 12/23/16 12/23/16 Range/Units 17:56 17:56 17:56 WBC 6.5 (4.3-11.1) K/mcL RBC 4.50 (4.19-5.50) M/mcL Hgb 11.7 L (12.9-16.9) g/dL Hct 37.2 L (37.5-50.1) % MCV 82.7 L (83.0-100.0) fL MCH 26.0 L (28.0-33.3) pg MCHC 31.5 L (31.6-35.5) g/dL RDW 17.2 H (11.5-14.5) % Plt Count 260 (140-400) K/mcL MPV 9.8 (9.4-12.4) fL Immature Gran % 0.2 (0-4) % Seg Neutrophils % 66.2 % Lymphocytes % 23.0 % Monocytes % 8.3 % Eosinophils % 1.7 % Basophils % 0.6 % Neutrophils # 4.3 (1.6-8.9) K/mcL Lymphocytes # 1.5 (0.6-4.6) K/mcL Monocytes # 0.5 (0.0-1.3) K/mcL Eosinophils # 0.1 (0.0-0.6) K/mcL Basophils # 0.0 (0.0-0.2) K/mcL PT 32.0 H (9.4-12.1) Seconds INR 2.9 APTT 42.3 H (26.0-36.0) Seconds Sodium 139 (136-145) mEq/L Potassium 3.4 L (3.5-4.5) mEq/L Chloride 101 (98-109) mEq/L Carbon Dioxide 27 (19-29) mEq/L BUN 39 H (8-26) mg/dL Creatinine 2.19 H (0.72-1.25) mg/dL Est GFR ( Amer) 35 L (> 60) Est GFR (Non-Af Amer) 29 L (> 60) BUN/Creatinine Ratio 18 (6-26) Glucose 119 H (70-99) mg/dL Calculated Osmolality 299 (280-300) Calcium 9.3 (8.6-10.8) mg/dL Troponin I (0-0.03) ng/mL 12/23/16 Range/Units 17:56 WBC (4.3-11.1) K/mcL RBC (4.19-5.50) M/mcL Hgb (12.9-16.9) g/dL Hct (37.5-50.1) % MCV (83.0-100.0) fL MCH (28.0-33.3) pg MCHC (31.6-35.5) g/dL RDW (11.5-14.5) % Plt Count (140-400) K/mcL MPV (9.4-12.4) fL Immature Gran % (0-4) % Seg Neutrophils % % Lymphocytes % % Monocytes % % Eosinophils % % Basophils % % Neutrophils # (1.6-8.9) K/mcL Lymphocytes # (0.6-4.6) K/mcL Monocytes # (0.0-1.3) K/mcL Eosinophils # (0.0-0.6) K/mcL Basophils # (0.0-0.2) K/mcL PT (9.4-12.1) Seconds INR APTT (26.0-36.0) Seconds Sodium (136-145) mEq/L Potassium (3.5-4.5) mEq/L Chloride (98-109) mEq/L Carbon Dioxide (19-29) mEq/L BUN (8-26) mg/dL Creatinine (0.72-1.25) mg/dL Est GFR ( Amer) (> 60) Est GFR (Non-Af Amer) (> 60) BUN/Creatinine Ratio (6-26) Glucose (70-99) mg/dL Calculated Osmolality (280-300) Calcium (8.6-10.8) mg/dL Troponin I 0.03 (0-0.03) ng/mL - Radiology Data Radiology results reviewed: Yes I reviewed the patient's radiology results. Chest X-Ray 12/23/16 17:24 IMPRESSION: No acute cardiopulmonary disease. D/ / Luc Caicedo MD / Luc Caicedo MD Interpreting Provider: Luc Caicedo MD - EKG Data EKG attestation: Yes I reviewed and interpreted this EKG. Rhythm: PVC's (97 bpm HI 208 QRS 161 QTC 429 ) Interpretation: nonspecific ST-T wave changes - Core Measures AMI Core Measures Followed: Yes Heart Score - Score History: Moderately Suspicious EKG: Non Specific repolarisation Disturbance Age: Greater than 65 Risk Factors: Equal/Greater than 3 risk factor or history of atherosclerotic disease Troponin: Less than normal limit HEART Score Total: 6 Attestation Statement - Attestation Attestation: I personally interviewed and examined this patient and my medical decision- making was reviewed with the Resident Physician, Dr. Dutta. I agree with the documented findings, disposition and treatment plan as described except to the extent set forth below. Pt is a 76 yo wm, hx known CAD and multiple risk factors, who presents with CP. Pt with multiple admissions for CP, had neg stress test one week ago. Pt reports L sided CP lasting for minutes at home, intermittent and currently resolved. Worse with exertion. I agree with pt's PE as documented. EKG unchanged from previous. Labs show AL, but neg trop. Pt remained pain free thoughout ED course, given ASA. Will admit for further eval of CP, D/W hospitalist who accepted pt for admission.
[2016-12-23] MEDS ORDERED: Nitroglycerin 0.4 MG TAB.SUBL SL PRN (20:21)
[2016-12-23] MEDS ORDERED: Acetaminophen 325 MG TABLET PO PRN (20:23)
--- NOTE | 2016-12-23 20:29 | Internal Med History&Physical ---
Date of Encounter: 12/23/16 Time of Encounter: 20:27 Assessment and Plan (1) Unstable angina Current visit: Yes Status: Acute Chest pain located in substernal area relieved with nitroglycerin occurring at rest with 3 recurrences today consistent with unstable angina. Plan: Had a recent stress test however his last catheterization per records was in 2013 which showed 50% lesion and some diffuse non-obstructive CAD. We will keep the patient nothing by mouth after midnight. Consult cardiology, anticipate need for cardiac catheterization. His INR is 2.9 today. We will hold warfarin and monitor daily INR was at the falls below 2.0 consider starting heparin drip per ACS protocol. We will monitor the patient on telemetry. Trend troponin. We will treat chest pain with nitroglycerin and morphine. (2) Peptic ulcer disease Current visit: Yes Status: Acute Continue Protonix and Carafate. (3) Anticoagulated on Coumadin Current visit: Yes Status: Acute Hold Coumadin and anticipation of cardiac catheterization and monitor INR. Start heparin when INR drops below 2.0. (4) Essential hypertension Current visit: Yes Status: Acute Continue home meds. (5) CAD (coronary artery disease) Current visit: No Status: Chronic We will continue with aspirin, isosorbide, statin and beta violet. Qualifiers: Coronary Disease-Associated Artery/Lesion type: [place] artery [place] vs. transplanted heart: [place] heart Associated angina: angina presence unspecified Qualified Code(s): I25.10 - Atherosclerotic heart disease of [place] coronary artery without angina pectoris (6) GERD (gastroesophageal reflux disease) Current visit: No Status: Chronic Qualifiers: Esophagitis presence: without esophagitis Qualified Code(s): K21.9 - Gastro -esophageal reflux disease without esophagitis (7) Atrial flutter Current visit: No Status: Resolved We will monitor on telemetry. Currently in normal sinus. Qualifiers: Atrial flutter type: typical Qualified Code(s): I48.3 - Typical atrial flutter (8) CKD (chronic kidney disease) stage 3, GFR 30-59 ml/min Current visit: No Status: Chronic Avoid nephrotoxins. Provide gentle IV fluid hydration. Consider nephrology consult in anticipation of possible need for catheterization and IV dye load. Internal Medicine - H&P: HPI Chief complaint: Chest pain Admitted From: Emergency Dept Plans for Post Hospital Care: Home History of present illness: Mr. Mazariegos is a 76 year old male with past medical history of nonocclusive coronary artery disease, paroxysmal atrial flutter, hypertension and peptic ulcer disease who presented to the hospital with chest pain. He was recently admitted for the same and had a stress test which was read as negative. He reported 3 episodes of substernal chest pain which starts in the periumbilical area and progresses up and becomes severe, crushing, pressure-like associated with dry heaving and headache. The pain improves with nitroglycerin. He had 3 episodes of such chest pain at rest today. He presented to the hospital where his initial workup was negative. A 10 point review of systems was positive for left hand swelling secondary to shoulder surgery, otherwise negative Family history pertinent for history of CAD and the patient's father at age 60. Social history: Denies tobacco alcohol and drug use. Past Med Surg Social Fam HX - Past Medical History Medical history: arthritis, cancer, coronary artery disease, GERD, hyperlipidemia, hypertension Psychiatric history: no psych history - Past Surgical History Surgical History: orthopedic, other - Social History Smoking Status: Never smoker Smokeless Tobacco Status: No Alcohol use: none Drug use: none - Family History Mother Living Status: Hx Family Cancer: Yes ("blood") Father Living Status: Hx Family Cardiac Disorders: Yes Hx Family Respiratory Disorders: No Hx Family Cancer: No Hx Family GI Disorders: No Hx Family Endocrine Disorder: No (GRANDMOTHER WAS DIABETIC) Hx Family Neuromuscular Disorders: No Hx Family Neurologic Disorders: No Hx Family HEENT Disorders: No Hx Family Autoimmune Disorders: No Internal Medicine - H&P: Meds Acitretin [Soriatane] 10 mg PO BID 07/24/16 [History] Atorvastatin [Lipitor] 40 mg PO HS 07/24/16 [History] Ciclopirox [Loprox] 120 ml TP 3XW 07/24/16 [History] Ergocalciferol (VITAMIN D2) [Vitamin D2] 50,000 unit PO FLORES 07/24/16 [History] Finasteride [Proscar] 5 mg PO DAILY 07/24/16 [History] FluocinoNIDE 0.05% CRM [Lidex] 1 appl TP 3XW 07/24/16 [History] Fluticasone/Salmeterol [Advair Hfa 230-21 Mcg Inhaler] 2 puff IH BID 07/24/16 [ History] Isosorbide MONOnitrate (24 HR) [Imdur] 60 mg PO DAILY 07/24/16 [History] Levothyroxine [Synthroid] 50 mcg PO DAILY 07/24/16 [History] Nitroglycerin [Nitrostat] 0.4 mg SL Q5M PRN 07/24/16 [History] Potassium Chloride [Klor-Con] 20 meq PO DAILY 07/24/16 [History] hydroCHLOROthiazide [Hydrochlorothiazide] 25 mg PO DAILY 07/24/16 [History] Aspirin [Lo-Dose Aspirin EC] 81 mg PO DAILY 11/14/16 [History] Fenofibrate Nanocrystallized [Tricor] 145 mg PO DAILY 11/14/16 [History] Ibuprofen [Motrin] 200 mg PO Q6HR PRN 11/14/16 [History] Dicyclomine [Bentyl] 10 mg PO TID PRN #60 capsule 11/15/16 [Rx] Albuterol Neb [Proventil Neb] 2.5 mg IH BID 12/06/16 [History] Acetaminophen [Tylenol] 650 mg PO Q6HR PRN tab 12/17/16 [Rx] Metoprolol XL (24 HR) Succ [Toprol Xl] 25 mg PO DAILY 12/20/16 [History] Mupirocin [Bactroban Oint] 1 appl TP DAILY 12/20/16 [History] Warfarin Sodium [Coumadin] 6 mg PO DAILY 12/20/16 [History] Budesonide/Formoterol 160/4.5 [Symbicort 160/4.5] 2 puff IH BIDRESP 12/21/16 [Rx ] Omeprazole [PriLOSEC] 40 mg PO DAILY@0730 12/21/16 [Rx] Sucralfate [Carafate] 1 gm PO QIDAC #90 tablet 12/21/16 [Rx] Allergies No Known Allergies Allergy (Verified 12/23/16 17:23) All Systems PM: A 10-system review of systems was performed and is negative for pertinent findings except as documented above in the HPI. - Constitutional Vitals: Temp Pulse Resp BP Pulse Ox 97.9 F 93 18 144/80 98 12/23/16 17:18 12/23/16 18:53 12/23/16 18:53 12/23/16 18:53 12/23/16 18:53 General appearance: Present: A&O X 3 - Eye Eye exam: Present: PERRL, conjuntiva pink, sclera anicteric Pupils: Present: PERRL - Respiratory Respiratory exam: Present: CTAB. Absent: accessory muscle use, rales, rhonchi, wheezes - Cardiovascular Cardiovascular exam: Present: RRR, +S1, +S2. Absent: diastolic murmur, gallop, rubs, systolic murmur - GI/Abdominal GI/Abdominal exam: Present: normal bowel sounds, soft, no peritoneal signs. Absent: distended, tenderness - Extremities Exam Extremities exam: Present: warm, radial pulses palpable and symetrical. Absent : calf tenderness, cyanotic, pedal edema - Neurological Exam Neurological exam: Present: CN II-XII intact, oriented X3, no focal deficits. Absent: pronater drift, facial droop, speech deficit - Skin Skin exam: Present: dry, intact Internal Med - H&P Results - Labs CBC & Chem 7: 12/23/16 17:56 12/23/16 17:56 - EKG Data -: EKG Interpreted by Myself EKG shows normal: sinus rhythm (Old right bundle branch block and left anterior fascicular block, rare PVCs) - EKG Data Prior EKG available for review: no
[2016-12-23] MEDS: Aspirin 81 MG TAB.CHEW PO SCH (20:32)
[2016-12-23] MEDS ORDERED: NON-FORMULARY MEDICATION 1 EACH EACH (Fluticasone/Salmeterol [Advair Hfa 230-21 Mcg Inhale IH SCH (21:00)
[2016-12-23] MEDS: Budesonide/Formoterol 160/4.5 MDI IH SCH (22:45)
[2016-12-23] MEDS: Sucralfate 1 GM TABLET PO SCH (22:49)
[2016-12-23] MEDS: 0.9 % Sodium Chloride 1,000 ML IVC SCH (22:52)
[2016-12-24] MEDS: Sucralfate 1 GM TABLET PO SCH ×3 (04:39→21:47)
[2016-12-24 06:44] LABS: Basophils % 0.4 %; Eosinophils # 0.1 K/mcL (0.0-0.6); Eosinophils % 1.8 %; Hematocrit 40.4 % (37.5-50.1); Hemoglobin 12.4 g/dL (12.9-16.9); INR 2.4; Immature Granulocytes % 0.3 % (0-4); Lymphocytes # 2.1 K/mcL (0.6-4.6); Lymphocytes % 29.1 %; Mean Corpuscular HGB Conc 30.7 g/dL (31.6-35.5); Mean Corpuscular Hemoglobin 25.6 pg (28.0-33.3); Mean Corpuscular Volume 83.3 fL (83.0-100.0); Mean Platelet Volume 9.5 fL (9.4-12.4); Monocytes # 0.5 K/mcL (0.0-1.3); Monocytes % 7.4 %; Neutrophils # 4.4 K/mcL (1.6-8.9); Platelet Count 258 K/mcL (140-400); Prothrombin Time 26.5 Seconds (9.4-12.1); Red Blood Count 4.85 M/mcL (4.19-5.50); Red Cell Distribution Width 17.1 % (11.5-14.5)
[2016-12-24 06:50] LABS: Calcium 9.6 mg/dL (8.6-10.8); Potassium 3.9 mEq/L (3.5-4.5)
[2016-12-24] MEDS: Budesonide/Formoterol 160/4.5 MDI IH SCH ×2 (08:23→20:44)
[2016-12-24] MEDS: Albuterol 2.5 MG/3 ML NEBULIZER IH SCH ×2 (08:23→20:44)
[2016-12-24] MEDS ORDERED: hydroCHLOROthiazide 25 MG TABLET PO SCH (09:00)
[2016-12-24] MEDS: Metoprolol XL (24 HR) Succ 25 MG TAB.ER.24H PO SCH (10:25)
[2016-12-24] MEDS: Aspirin Enteric Coated 81 MG Tablet PO SCH (10:25)
[2016-12-24] MEDS: Isosorbide MONOnitrate (24 HR) 60 MG TAB.ER.24H PO SCH (10:25)
[2016-12-24] MEDS: Fenofibrate 54 MG TABLET PO SCH (10:25)
[2016-12-24] MEDS: Finasteride 5 MG TABLET PO SCH (10:25)
[2016-12-24] MEDS: 0.9 % Sodium Chloride 1,000 ML IVC SCH (10:28)
[2016-12-24] MEDS: Aspirin 81 MG TAB.CHEW PO SCH (10:28)
--- NOTE | 2016-12-24 12:38 | Electrocardiograph Report ---
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
--- NOTE | 2016-12-24 13:52 | Cardiology Consult Note ---
<ValdemarlarrydaphnieSukh regalado - Last Filed: 12/24/16 15:31> Date of Encounter: 12/24/16 Time of Encounter: 13:40 Assessment and Plan (1) Unstable angina Current Visit: Yes Status: Acute Nuclear stress test from 12/20/16 showed an EF of >70% with no signs of ischemic disease. Troponin on arrivial was 0.03, however patient has a history of elevated tropopnin. EKG shows a sinus rhythm with no ST-elevations. He has a CHADS2 score of 4 (HTN, Age, Vascular). Current plan is hold off on the coumadin until patient's INR (currently 2.4) drops below 2.0 and then put him on heparin in order to perform a cardiac catheterization procedure. We will continue to monitor troponins. Continue aspirin. Nitroglycerin, morphine, and oxygen as needed. (2) CAD (coronary artery disease) Current Visit: No Status: Chronic Continue aspirin, imdur, simvastatin, and Toprol XL. Qualifiers: Coronary Disease-Associated Artery/Lesion type: [place] artery [place] vs. transplanted heart: [place] heart Associated angina: angina presence unspecified Qualified Code(s): I25.10 - Atherosclerotic heart disease of [place] coronary artery without angina pectoris (3) Atrial flutter Current Visit: No Status: Resolved Patient currently has sinus rhythm. Continue to monitor telemetry. Qualifiers: Atrial flutter type: typical Qualified Code(s): I48.3 - Typical atrial flutter Discussion w patient/family: The assessment and plan as outlined above was discussed with the patient and/or family members who expressed understanding and agreement. All questions were answered. Thank you for involving us in the care of your patient. Please call with any questions. History of Present Illness Consult date: 12/24/16 Requesting physician: Khang Rodgers Consult reason: Unstable angina Chief complaint: Chest pain History of present illness: Mr. Mazariegos is a 76 year old male with a PMH of CAD, A-Fib RVR, and HTN that was admitted on 12/23/16 for chest pain. He cites that he was sitting and watching TV when he started to experience a pain in his epigastric region that migrated to his L chest, describing it as an intense pressure, rating it a 10/ 10 on the pain scale, along with shortness of breath that lasted for several minutes. This happened 3 times that day. He took some nitroglycerin tabs he had at home and said it diminished the pain a little. He admits to nausea and dizziness at the time but denies any vomiting or loss of consciousness. He denies any numbness/tingling to the arm or jaw. Denies any heart palpitations. Troponin on arrival was 0.03, although patient has a history of elevated levels. Chest X-ray showed no acute cardiopulmonary disease. He was recently admitted for chest pain and atrial flutter on 12/06/16 where he was cardiovereted on 12/10/16 from A-Fib to a junctional rhythm and discharged with an event monitor. He was then admitted again on 12/20/16 for chest pain and had a nuclear stress test performed which revealed an EF of >70% and was negative for ischemic disease. His CHADS2 score is 4. Past Med Surg Social Fam HX - Past Medical History Medical history: arthritis, cancer, coronary artery disease, GERD, hyperlipidemia, hypertension Psychiatric history: no psych history - Past Surgical History Surgical History: orthopedic, other - Social History Smoking Status: Never smoker Smokeless Tobacco Status: No Alcohol use: none Drug use: none - Family History Mother Living Status: Hx Family Cancer: Yes ("blood") Father Living Status: Hx Family Cardiac Disorders: Yes Hx Family Respiratory Disorders: No Hx Family Cancer: No Hx Family GI Disorders: No Hx Family Endocrine Disorder: No (GRANDMOTHER WAS DIABETIC) Hx Family Neuromuscular Disorders: No Hx Family Neurologic Disorders: No Hx Family HEENT Disorders: No Hx Family Autoimmune Disorders: No Medications and Allergies Acitretin [Soriatane] 10 mg PO BID 07/24/16 [History] Atorvastatin [Lipitor] 40 mg PO HS 07/24/16 [History] Ciclopirox [Loprox] 120 ml TP 3XW 07/24/16 [History] Ergocalciferol (VITAMIN D2) [Vitamin D2] 50,000 unit PO FLORES 07/24/16 [History] Finasteride [Proscar] 5 mg PO DAILY 07/24/16 [History] FluocinoNIDE 0.05% CRM [Lidex] 1 appl TP 3XW 07/24/16 [History] Fluticasone/Salmeterol [Advair Hfa 230-21 Mcg Inhaler] 2 puff IH BID 07/24/16 [ History] Isosorbide MONOnitrate (24 HR) [Imdur] 60 mg PO DAILY 07/24/16 [History] Levothyroxine [Synthroid] 50 mcg PO DAILY 07/24/16 [History] Nitroglycerin [Nitrostat] 0.4 mg SL Q5M PRN 07/24/16 [History] Potassium Chloride [Klor-Con] 20 meq PO DAILY 07/24/16 [History] hydroCHLOROthiazide [Hydrochlorothiazide] 25 mg PO DAILY 07/24/16 [History] Aspirin [Lo-Dose Aspirin EC] 81 mg PO DAILY 11/14/16 [History] Fenofibrate Nanocrystallized [Tricor] 145 mg PO DAILY 11/14/16 [History] Ibuprofen [Motrin] 200 mg PO Q6HR PRN 11/14/16 [History] Dicyclomine [Bentyl] 10 mg PO TID PRN #60 capsule 11/15/16 [Rx] Albuterol Neb [Proventil Neb] 2.5 mg IH BID 12/06/16 [History] Acetaminophen [Tylenol] 650 mg PO Q6HR PRN tab 12/17/16 [Rx] Metoprolol XL (24 HR) Succ [Toprol Xl] 25 mg PO DAILY 12/20/16 [History] Mupirocin [Bactroban Oint] 1 appl TP DAILY 12/20/16 [History] Warfarin Sodium [Coumadin] 6 mg PO DAILY 12/20/16 [History] Budesonide/Formoterol 160/4.5 [Symbicort 160/4.5] 2 puff IH BIDRESP 12/21/16 [Rx ] Omeprazole [PriLOSEC] 40 mg PO DAILY@0730 12/21/16 [Rx] Sucralfate [Carafate] 1 gm PO QIDAC #90 tablet 12/21/16 [Rx] Allergies No Known Allergies Allergy (Verified 12/23/16 17:23) All Systems Review: A 10-system review of systems was performed and is negative for pertinent findings except as documented above in the HPI. - Constitutional Constitutional: no headache(s) - Cardiovascular Cardiovascular: no chest pain at rest, no radiating jaw, neck or arm pain, no leg edema, no lightheadedness, no palpitations, no syncope - Gastrointestinal Gastrointestinal: no nausea - Neurological Neurological: no dizziness, no numbness, no syncope, no tingling Physical Examination Vital Signs, Last 4 Hours Temp Pulse Resp BP Pulse Ox 12/24/16 11:28 98.3 F 66 15 137/70 97 General: Conversant, No Apparent Distress Neck: No JVD, Normal carotid pulses Cardiac: Reg Rate and Rhythm, Normal S1 and S2, No Murmur Lungs: Normal Breath Sounds, No Wheeze, Rales, Rhonchi Neuro: Alert and responsive Abdomen: Soft, Non-Tender Musculoskeletal: No Chest Wall Tenderness Extremities: No Clubbing, No Cyanosis, No Edema Results 12/24/16 06:31 12/24/16 06:31 Lab Results 12/24/16 12/24/16 12/24/16 00:35 06:31 06:31 WBC 7.2 Hgb 12.4 L Hct 40.4 Plt Count 258 INR Sodium Potassium Chloride Carbon Dioxide BUN Creatinine Glucose Calcium Troponin I 0.02 0.03 12/24/16 12/24/16 06:31 06:31 WBC Hgb Hct Plt Count INR 2.4 Sodium 140 Potassium 3.9 Chloride 105 Carbon Dioxide 27 BUN 32 H Creatinine 1.85 H Glucose 85 Calcium 9.6 Troponin I - Imaging and Cardiology Chest Xray: report reviewed (No acute cardiopulmonary disease) - EKG Interpretation EKG results cardiology: personally reviewed (Compared to EKG from 12/20/16 and showed no significant changes other than some PACs. No ST elevations. Sinus rhythm.) Consult Discharge Plan - Plan Referrals: Jackie Merchant CNP [Advanced Practice Nurse] - 12/25/16 1:00 pm <Nela Underwood - Last Filed: 12/24/16 17:20> Date of Encounter: 12/24/16 Assessment and Plan Discussion w patient/family: The assessment and plan as outlined above was discussed with the patient and/or family members who expressed understanding and agreement. All questions were answered. Thank you for involving us in the care of your patient. Please call with any questions. History of Present Illness History of present illness: Mr. Mazariegos is a 76 year old male All Systems Review: A 10-system review of systems was performed and is negative for pertinent findings except as documented above in the HPI. Physical Examination Vital Signs, Last 4 Hours Temp Pulse Resp BP Pulse Ox 12/24/16 14:48 98.2 F 65 14 109/64 96 Results 12/24/16 06:31 12/24/16 06:31 Lab Results 12/24/16 12/24/16 12/24/16 00:35 06:31 06:31 WBC 7.2 Hgb 12.4 L Hct 40.4 Plt Count 258 INR Sodium Potassium Chloride Carbon Dioxide BUN Creatinine Glucose Calcium Troponin I 0.02 0.03 12/24/16 12/24/16 06:31 06:31 WBC Hgb Hct Plt Count INR 2.4 Sodium 140 Potassium 3.9 Chloride 105 Carbon Dioxide 27 BUN 32 H Creatinine 1.85 H Glucose 85 Calcium 9.6 Troponin I - Attending Attestation I examined this patient and my medical decision-making was reviewed with the Resident Physician. I agree with the documented findings, disposition and treatment plan. Mr. Mazariegos presents with chest pain radiating to his chest that he says was very severe. Troponins have been negative. However, he has had several recent hospitalizations, also with elevated troponin peak at 0.19 on 12/07/2016. He has a history of CAD. We discussed consideration for LHC. The patient would like to proceed after discussing R/B/A including risk of DARWIN given CKD. Coumadin is also on hold.
--- NOTE | 2016-12-24 17:04 | Internal Med Progress Note ---
Date of Encounter: 12/24/16 Time of Encounter: 17:03 - Assessment and plan (1) Chest pain, rule out acute myocardial infarction Current Visit: No Status: Acute Assessment and plan: He did have typical angina equivalent CP He had recent normal stress test He did mention he had a cardiac cath in 2013 but it was normal He may get benefit [facility] Card is on board scheduled for [facility] once his INR improves keep holding COumadin for now Cont ASA, Imdur, Metoprolol and statin (2) Unstable angina Current Visit: Yes Status: Acute (3) Acute kidney injury superimposed on CKD Current Visit: Yes Status: Acute Assessment and plan: Improved Cr at baseline Held IVF for now will resume IVF 24hrs prior to LHC also will start him on Acetylcystiene 24hrs prior to LHC (4) Atrial flutter Current Visit: No Status: Resolved Assessment and plan: Paroxysmal A flutter rate controlled with Metoprolol Held Coumadin for LHC Qualifiers: Atrial flutter type: typical Qualified Code(s): I48.3 - Typical atrial flutter (5) Essential hypertension Current Visit: Yes Status: Chronic Assessment and plan: stable with home meds - Subjective Interval history: Mr. Mazariegos is a 76 year old male with past medical history of nonocclusive coronary artery disease, paroxysmal atrial flutter, hypertension and peptic ulcer disease who presented to the hospital with chest pain. He was recently admitted for the same and had a stress test which was read as negative. He reported 3 episodes of substernal chest pain which starts in the periumbilical area and progresses up and becomes severe, crushing, pressure-like associated with dry heaving and headache. The pain improved with nitroglycerin. He deneid any more chest pain since he got admitted here. No SOB . - Constitutional Vitals: Temp Pulse Resp BP Pulse Ox 98.2 F 65 14 109/64 96 12/24/16 14:48 12/24/16 14:48 12/24/16 14:48 12/24/16 14:48 12/24/16 14:48 General appearance: Present: A&O X 3 - Head Head exam: Present: atraumatic, normal inspection - Respiratory Respiratory exam: Present: CTAB. Absent: accessory muscle use, rales, rhonchi, wheezes - Cardiovascular Cardiovascular exam: Present: RRR, +S1, +S2. Absent: diastolic murmur, gallop, rubs, systolic murmur - GI/Abdominal GI/Abdominal exam: Present: soft. Absent: distended, rebound, rigid, tenderness - Extremities Exam Extremities exam: Absent: calf tenderness, pedal edema, tenderness - Neurological Exam Neurological exam: Present: alert, oriented X3 - Psychiatric Psychiatric exam: Present: normal affect, normal mood Internal Medicine: Result - Labs CBC & Chem 7: 12/24/16 06:31 12/24/16 06:31 Labs: Short CBC 12/24/16 Range/Units 06:31 WBC 7.2 (4.3-11.1) K/mcL Hgb 12.4 L (12.9-16.9) g/dL Hct 40.4 (37.5-50.1) % Plt Count 258 (140-400) K/mcL Neutrophils # 4.4 (1.6-8.9) K/mcL BMP 12/24/16 06:31 Sodium 140 Potassium 3.9 Chloride 105 Carbon Dioxide 27 BUN 32 H Creatinine 1.85 H Glucose 85 Calcium 9.6 Cardiac Enzymes 12/24/16 12/24/16 Range/Units 00:35 06:31 Troponin I 0.02 0.03 (0-0.03) ng/mL - ABG Interpretation ABG results: PT/INR, D-dimer PT 26.5 Seconds (9.4-12.1) H 12/24/16 06:31 Consult Discharge Plan - Plan Referrals: Jackie Merchant SEARCH ANALYST [Advanced Practice Nurse] - 12/25/16 1:00 pm
[2016-12-25 06:45] LABS: Basophils % 0.4 %; Eosinophils # 0.1 K/mcL (0.0-0.6); Hematocrit 36.5 % (37.5-50.1); Hemoglobin 11.2 g/dL (12.9-16.9); Immature Granulocytes % 0.4 % (0-4); Lymphocytes # 1.6 K/mcL (0.6-4.6); Lymphocytes % 22.8 %; Mean Corpuscular HGB Conc 30.7 g/dL (31.6-35.5); Mean Corpuscular Hemoglobin 25.9 pg (28.0-33.3); Mean Corpuscular Volume 84.5 fL (83.0-100.0); Mean Platelet Volume 9.6 fL (9.4-12.4); Monocytes # 0.5 K/mcL (0.0-1.3); Monocytes % 6.5 %; Platelet Count 236 K/mcL (140-400); Red Blood Count 4.32 M/mcL (4.19-5.50); Red Cell Distribution Width 17.2 % (11.5-14.5); Segmented Neutrophils % 68.9 %
[2016-12-25 06:46] LABS: INR 1.6; Prothrombin Time 17.3 Seconds (9.4-12.1)
[2016-12-25 06:59] LABS: Calcium 9.3 mg/dL (8.6-10.8); Potassium 3.9 mEq/L (3.5-4.5)
[2016-12-25] MEDS: Albuterol 2.5 MG/3 ML NEBULIZER IH SCH ×2 (08:02→22:27)
[2016-12-25] MEDS: Budesonide/Formoterol 160/4.5 MDI IH SCH ×2 (08:02→22:28)
[2016-12-25] MEDS: Isosorbide MONOnitrate (24 HR) 60 MG TAB.ER.24H PO SCH (08:41)
[2016-12-25] MEDS: Aspirin Enteric Coated 81 MG Tablet PO SCH (08:41)
[2016-12-25] MEDS: Metoprolol XL (24 HR) Succ 25 MG TAB.ER.24H PO SCH (08:41)
[2016-12-25] MEDS: Fenofibrate 54 MG TABLET PO SCH (08:41)
[2016-12-25] MEDS: Finasteride 5 MG TABLET PO SCH (08:41)
[2016-12-25] MEDS: Sucralfate 1 GM TABLET PO SCH ×5 (08:43→21:49)
[2016-12-25] MEDS: Clotrimazole 1% CRM 15 GM TUBE TP SCH (08:44)
--- NOTE | 2016-12-25 11:32 | Pre-Sedation Evaluation ---
Pre-sedation evaluation - Pre-sedation checklist Date of procedure: 12/24/16 Procedure: [facility] Recent Vitals: Last Vital Signs Temp 97.7 F 12/25/16 07:32 Pulse 61 12/25/16 07:32 Resp 16 12/25/16 08:02 BP 168/77 12/25/16 07:32 Pulse Ox 98 12/25/16 08:02 H&P (including ROS) documented in medical record: Yes Previous reaction to sedatives/anesthetics: No Dietary Status: NPO after Midnight Dentition: No loose teeth or bridges ASA Classification *see protocol: CLASS II-Mild systemic disease Plan of Care: Pt appropriate candidate for procedure/moderate/conscious sedation , Risks/benefits of procedure/sedation discussed w/ patient/family
--- NOTE | 2016-12-25 14:30 | Internal Med Progress Note ---
Date of Encounter: 12/25/16 Time of Encounter: 14:27 - Assessment and plan (1) Chest pain, rule out acute myocardial infarction Current Visit: No Status: Acute Assessment and plan: He did have typical angina equivalent CP He had recent normal stress test Shceudled for cardiac cath later today his INR is 1.6 today keep holding COumadin for now Cont ASA, Imdur, Metoprolol and statin started him on gentle IV hydration for renal protection also started him Acetylcysteine 600mg BID x 4 doses (2) Unstable angina Current Visit: Yes Status: Acute (3) Acute kidney injury superimposed on CKD Current Visit: Yes Status: Acute Assessment and plan: Improved Cr at baseline started him on gentle IV hydration for renal protection also started him Acetylcysteine 600mg BID x 4 doses (4) Atrial flutter Current Visit: No Status: Resolved Assessment and plan: Paroxysmal A flutter rate controlled with Metoprolol Held Coumadin for [facility] Qualifiers: Atrial flutter type: typical Qualified Code(s): I48.3 - Typical atrial flutter (5) Essential hypertension Current Visit: Yes Status: Chronic Assessment and plan: stable with home meds - Subjective Interval history: Mr. Mazariegos is a 76 year old male with past medical history of non occlusive coronary artery disease, paroxysmal atrial flutter, hypertension and peptic ulcer disease who presented to the hospital with chest pain. He was recently admitted for the same and had a stress test which was read as negative. He reported 3 episodes of sub sternal chest pain which starts in the carla umbilical area and progresses up and becomes severe, crushing, pressure-like associated with dry heaving and headache. The pain improved with nitroglycerin. He did have another episode of chest pain this morning, lasted for 5 minutes. Sub sternal squeezing CP. - Constitutional Vitals: Temp Pulse Resp BP Pulse Ox 97.8 F 69 17 123/56 96 12/25/16 11:49 12/25/16 11:49 12/25/16 11:49 12/25/16 11:49 12/25/16 11:49 General appearance: Present: A&O X 3 - Head Head exam: Present: atraumatic, normal inspection - Respiratory Respiratory exam: Present: decreased breath sounds, wheezes. Absent: respiratory distress, rhonchi - Cardiovascular Cardiovascular exam: Present: RRR, +S1, +S2. Absent: gallop, systolic murmur - GI/Abdominal GI/Abdominal exam: Present: soft. Absent: rebound, rigid, tenderness - Extremities Exam Extremities exam: Absent: calf tenderness, pedal edema, tenderness - Psychiatric Psychiatric exam: Present: normal affect, normal mood Internal Medicine: Result - Labs CBC & Chem 7: 12/25/16 04:57 12/25/16 04:57 Labs: Short CBC 12/25/16 Range/Units 04:57 WBC 7.2 (4.3-11.1) K/mcL Hgb 11.2 L (12.9-16.9) g/dL Hct 36.5 L (37.5-50.1) % Plt Count 236 (140-400) K/mcL Neutrophils # 5.0 (1.6-8.9) K/mcL BMP 12/25/16 04:57 Sodium 141 Potassium 3.9 Chloride 107 Carbon Dioxide 26 BUN 34 H Creatinine 1.69 H Glucose 84 Calcium 9.3 - ABG Interpretation ABG results: PT/INR, D-dimer PT 17.3 Seconds (9.4-12.1) H 12/25/16 04:57 Consult Discharge Plan - Plan Referrals: Jackie Merchant RECOVERY OPERATOR HELPER [Advanced Practice Nurse] - 12/25/16 1:00 pm
[2016-12-25] MEDS: 0.9 % Sodium Chloride 1,000 ML IVC SCH ×2 (14:47→21:49)
[2016-12-25] MEDS: *HR* Acetylcysteine 20% 600 MG/3 ML ORAL SYRINGE PO SCH ×2 (16:32→21:52)
[2016-12-25] MEDS ORDERED: Verapamil 5 MG/2 ML VIAL ONE (16:43)
[2016-12-25] MEDS ORDERED: *HR* Heparin 10,000 UNIT/10 ML VIAL ONE (16:52)
[2016-12-25] MEDS ORDERED: Nitroglycerin 1,000 MCG/10 ML VIAL IV ONE (16:52)
[2016-12-25] MEDS ORDERED: 0.9 % Sodium Chloride 1,000 ML ONE (16:52)
[2016-12-25] MEDS ORDERED: Heparin 1,000 UNITS/500 mL NS 500 ML ONE (16:52)
[2016-12-25] MEDS ORDERED: *HR* Midazolam HCl 2 MG/2 ML VIAL ONE (17:10)
[2016-12-25] MEDS ORDERED: *HR* FentaNYL (PF) 100 MCG/2 ML VIAL ONE (17:10)
[2016-12-25] MEDS ORDERED: Tirofiban 5 MG/100ML 5 MG/100 ML BAG IV ONE (17:40)
[2016-12-25] MEDS ORDERED: *HR* Ticagrelor 90 MG TABLET ONE ×2 (18:00)
[2016-12-25] MEDS ORDERED: *HR* HYDROcodone/Acet 5/325 mg TABLET PO PRN (18:05)
[2016-12-25] MEDS ORDERED: Aspirin 81 MG TAB.CHEW ONE (18:06)
[2016-12-25] MEDS ORDERED: Tirofiban 12.5 MG/250ML 12.5 MG/250 ML BAG IVC SCH (18:15)
--- NOTE | 2016-12-25 18:29 | Invasive Diagnostic Lab Proc ---
Name: Gonzales Mazariegos Date of Study: 12/25/2016 Date: 1940 Ht: 68.9in Medical Record#: [id number] Age: 76 Wt: 160.94lb Gender: Male BSA: 1.88 Order #: [id number] BMI: 23.84 Physicians Procedure Physician: Chito Gonzalez MD, [facility] Referring MD: Referring MD: Staff Name Position Time In Layla Victoria RT (R) Monitor 05:17 PM AntonioKerline kincaid RT (R) Scrub 05:17 PM Rema Velasco RN Air Valve Mechanic 05:17 PM Susan Alfaro RN Air Valve Mechanic 05:17 PM Indications Indication Unstable Angina Procedures Performed Procedure L HRT ARTERY/VENTRICLE ANGIO PRQ CARD SINA STENT W/ANGIO 1 VSL Pre-Procedure Checklist Informed consent is complete signed and on chart. H&P is on chart. ID band is on and ID verified with patient. Patient NPO for procedure The procedure was described for the patient and questions were answered. Blood Pressure: 179/95 ECG is on chart. Rhythm: NSR Plan of Care Patient will tolerate the procedure without complications. Adequate level of comfort will be maintained. Hemodynamics will remain stable Patient will recover from procedure without complications. Respiratory function will be maintained. Cardiac rhythm will remain stable. Patient temperature will be maintained. Patient and/or family have verbalized understanding of the procedure. Patient Education Chief Complaint/Reason for Test: Cardiac Cath Developmental Category: Geriatric (65+ years) Developmentally Appropriate for Age: Yes Learning Barriers: None Education Needs: Procedure Education Method: Verbal Information Taught: Cardiac Cath Educational Evaluation: Able to repeat information Intravenous Access Time IV Size Location DC'd Fluid/Drip Rate Units RN 05:03 PM 20g 1 1/" Patent On Arrival Rt Arm 0.9NaCl 25 ml/hr Allergies Doxycycline Vital Signs Time BP (mmHg) HR (bpm) O2 Sat. RR (bpm) LOC 05:03 PM 168 / 77 61 98 % 16 5 = Fully awake and oriented or at pre-proc level 05:18 PM / % 4 = Oriented but drowsy 05:15 PM 179 / 98 81 100 % 18 Procedural Medications Time Medication Dose Units Method Given By 05:18 PM Oxygen 2 L/min nasal cannula Rema Velasco RN 05:18 PM Versed 2 mg Intravenous Rema Velasco RN 05:18 PM Fentanyl 50 mcg Intravenous Rema Velasco RN 05:24 PM Lidocaine 2% 0.5 ml Subcutaneous Chito Gonzalez MD, [facility] 05:29 PM Heparin 4000 units Nitroglycerin 200 mcg Verapamil 2.5 mg Intraarterial Chito Gonzalez MD, [facility] 05:43 PM Heparin 2000 units Intravenous Susan Alfaro RN 05:46 PM Nitroglycerin 200 mcg Intracoronary Chito Gonzalez MD 05:59 PM Nitroglycerin 200 mcg Intracoronary Chito Gonzalez MD 05:59 PM Aggrastat Bolus: 37.5 ml Intravenous Rema Velasco RN 06:00 PM Aggrastat 5mg/100ml 6.75 ml Intravenous Rema Velasco RN 06:00 PM Brilinta 180 mg Orally Rema Velasco RN 06:05 PM Aspirin (325mg) 325 mg Orally Rema Velasco RN Forrest Score Preprocedure Postprocedure Activity 2- Moves 4 extremities sustained head lift Activity 2- Moves 4 extremities sustained head lift Circulation 2- SBP +/= 20 points of pre-anesthetic level Circulation 2- SBP +/= 20 points of pre-anesthetic level Consciousness 2- Awake and alert oriented x 3 Consciousness 2- Awake and alert oriented x 3 O2 Saturation 2- Able to maintain O2 satruation of 92% on room air O2 Saturation 2- Able to maintain O2 satruation of 92% on room air Respiratory 2- Able to deep breathe and cough well Respiratory 2- Able to deep breathe and cough well Total Score 10 Total Score 10 Contrast Agent: Isovue Fluoro Dose: 545 mGy Activated Clotting Time Time Seconds to Clot 05:42 PM 232 Procedure Log Time Note Enter By 05:13 PM Vitals capture started with the following parameters, Patient=Adult, Interval=5 min, Initial Wkhhnbwg=896 mmHg, Deflation Rate=5 mmHg, Cuff placed on Right Arm 05:13 PM CathStat 05:15 PM [ Start or Stop Vital ] 05:15 PM NIBP STAT measurement started. 05:15 PM HR=81 bpm, ABOW=320/98 mmhg, XtG3=968.0 %, Resp=18 B/min, Comment=NSR 05:16 PM Recorded ECG: HR=88 Condition=Condition 1 05:16 PM Pt arrived to laboratory tester 2 at 17:16 [facility] 05:16 PM Physician arrived 17:16 [facility] 05:16 PM Meet and greet completed 05:16 PM Sign in performed according to hospital policy. 05:16 PM Procedure start 17:16 dsp 05:17 PM Layla Victoria RT (R) Position: Monitor Time in: 17: dsp 05:17 PM Kerline Alvarez RT (R) Position: Scrub Time in: 17: dsp 05:17 PM Rema Velasco RN Position: Air Valve Mechanic Time in: 17: dsp 05:17 PM Susan Alfaro RN Position: Air Valve Mechanic Time in: 17:17 dsp 05:17 PM Patient charges- Angio tray pack, Navilyst 3mm J, Pulse Oximetry and ACIST tubing and transducer 05:17 PM Hair removed from procedure site in holding area using clippers. Right wrist prepped with Chloraprep by Layla Victoria (R), safety strap applied then patient was draped. Skin intact. : PM Hair removed from procedure site in holding area using clippers. Right groin prepped with Chloraprep by Layla Victoria (R), safety strap applied then patient was draped. Skin intact. :18 PM Time: 17:18 Oxygen on at 2 L/min per nasal cannula by Rema Velasco RN :18 PM Time: 17:18 Versed 2 mg Intravenous Given by Rema Velasco RN :18 PM Time: 17:18 Fentanyl 50 mcg Intravenous Given by Rema Velasco RN :18 PM Time: 17:18 Patient comfortable and pain free: Yes dsp 05:18 PM Time: 17:18LOC: 4 = Oriented but drowsy dspell 05:23 PM Pressure channel 1 zero failed. 05:23 PM Pressure channel 1 zero failed. 05:23 PM Pressure channel 1 zeroed. 05:23 PM Time out performed according to hospital policy [email or web address] 05:24 PM Time: 17:24 0.5 ml Lidocaine 2% to right radial Subcutaneous Given by Chito Gonzalez MD, [facility] [email or web address] 05:26 PM Access obtained by percutaneous puncture. 6Fr 10cm Terumo Glidesheath sheath placed in right Radial artery. [id number] [email or web address] 05:29 PM Time: 17:29 Patient given 4,000 units Heparin, 200 mcg Nitroglycerin, and 2.5 mg Verapamil Intraarterial by Chito Gonzalez MD, [facility] [email or web address] 05:29 PM 0.035 260cm Navilyst 3mmJ wire [id number] [email or web address] 05:29 PM 5Fr TIG catheter inserted over the wire DN [email or web address] 05:30 PM LCA angiography performed in multiple views. [email or web address] 05:31 PM Recorded Pressure: Ao, HR=84, Condition=Condition 1 (Aorta) Ao 82/63/73 05:31 PM Catheter removed [email or web address] 05:31 PM RCA angiography performed in multiple views. [email or web address] 05:31 PM Recorded Pressure: Ao, HR=74, Condition=Condition 1 (Aorta) Ao 90/66/78 05:31 PM Coronary Dominance: right [email or web address] 05:32 PM Fuids increased to 100ml/hr [email or web address] 05:33 PM Catheter removed [email or web address] 05:33 PM Lesion found in Mid RCA. Pre Stenosis: 50 Pre YUNG Flow: 3: Complete and Brisk Flow/Perfusion [email or web address] 05:33 PM 5Fr FL 3.5 catheter inserted over the wire [id number] [email or web address] 05:34 PM Recorded Pressure: Ao, HR=83, Condition=Condition 1 (Aorta) Ao 112/74/91 05:35 PM Catheter removed [email or web address] 05:35 PM .014 [place] 190cm guide wire across target lesion- successful. reused? No [email or web address] 05:35 PM Inflation device was opened. [email or web address] 05:36 PM 5Fr Pigtail catheter inserted over the wire DN [email or web address] 05:36 PM Catheter selectively placed in left ventricle [email or web address] 05:37 PM Recorded Pressure: LV, HR=78, Condition=Condition 1 (Left Ventricle) LV 125/14/18 05:37 PM Recorded Pressure: LV, Ao, HR=81, Condition=Condition 1 (Left Ventricle) LV 141/15/16, (Aorta) Ao 144/37/85 05:38 PM Catheter removed [email or web address] 05:38 PM 6Fr RBL 3.5 Convey guide catheter was used to cannulate the PCI vessel successfully. reused? No [email or web address] 05:42 PM Guide catheter removed intact. [email or web address] 05:42 PM 6Fr EBU 3.0 Medtronic guide catheter was used to cannulate the PCI vessel successfully. reused? No [email or web address] 05:43 PM At 17:42 the ACT was 232 seconds. [email or web address] 05:43 PM Time: 17:43 Heparin 2000 units Intravenous Given by Susan Alfaro RN [email or web address] 05:44 PM Wire inserted. [email or web address] 05:44 PM Recorded Pressure: Ao, HR=74, Condition=Condition 1 (Aorta) Ao 133/70/96 05:46 PM 2.25 mm x 20 mm Emerge Monorail balloon across target lesion- successful. reused? No [email or web address] 05:46 PM Time: 17:46 Nitroglycerin 200 mcg Intracoronary Given by Chito Gonzalez MD [email or web address] 05:48 PM Balloon inflated @ 8 golden for 17 seconds [email or web address] 05:49 PM Recorded Pressure: Ao, HR=71, Condition=Condition 1 (Aorta) Ao 127/76/100 05:50 PM Balloon inflated @ 10 golden for 22 seconds [email or web address] 05:51 PM Balloon inflated @ 10 golden for 8 seconds [email or web address] 05:51 PM Balloon catheter removed intact. [email or web address] 05:52 PM 2.5mm x 24mm Synergy drug-eluting stent across target lesion- successful Lot #[id number] [email or web address] 05:54 PM Stent deployed @ 12 golden for 30 seconds [email or web address] 05:55 PM Stent delivery system removed intact. [email or web address] 05:57 PM 2.25mm x 16mm Synergy drug-eluting stent across target lesion- successful Lot #[id number] [email or web address] 05:58 PM Balloon inflated @ 12 golden for 19 seconds [email or web address] 05:58 PM Stent deployed @ 18 golden for 10 seconds [email or web address] 05:59 PM Time: 17:59 Nitroglycerin 200 mcg Intracoronary Given by Chito Gonzalez MD [email or web address] 06:00 PM Time: 17:59 Aggrastat Bolus: 37.5 ml Intravenous Given by Rema Velasco RN Goetz pump [email or web address] 06:00 PM Time: 18:00 Aggrastat 5mg/100ml 6.75 ml Intravenous Given by Rema Velasco RN Goetz pump [email or web address] 06:00 PM Stent delivery system removed intact. [email or web address] 06:00 PM Guide wire removed intact. [email or web address] 06:00 PM Guide catheter removed intact. [email or web address] 06:01 PM Time: 18:00 Brilinta 180 mg Orally Given by Rema Velasco RN [email or web address] 06:01 PM Procedure completed at 18:01 [email or web address] 06:01 PM Sign out completed: Radiation Dose 545.30 mGy Fluoro Time: 8.0 Isovue 370 - 100ml contrast ml given by Chito Gonzalez MD, [facility]. Complications: NoneCardiac Rehab Consult needed: YesConfirmed administered medications: Yes [email or web address] 06:01 PM Isovue 370 - 200ml,1 Bottle(s) used. [email or web address] 06:02 PM Arterial sheath pulled, Vasc Band closure device used and was Successful S/N. [email or web address] 06:02 PM 13 ml air in Vasc Band. [email or web address] 06:02 PM Post ECG NSR [email or web address] 06:02 PM Post Blood Pressure 179/98 [email or web address] 06:03 PM 18:02 Post Pulses Rt Radial 2+ [email or web address] 06:03 PM Information taught Cardiac Cath, PCI, and Vasc Band [email or web address] 06:03 PM Education needs Procedure, Plan of Care, and Disease Process [email or web address] 06:03 PM Learning barriers :None [email or web address] 06:03 PM Education Methods Verbal [email or web address] 06:03 PM Education evaluation Able to repeat information [email or web address] 06:03 PM Site status No bleeding/hematoma - Rt Wrist as reported by Kerline Alvarez RT (R) at 18:03 [email or web address] 06:03 PM Delay to floor No [email or web address] 06:05 PM Time: 18:05 Aspirin (325mg) 325 mg Orally Given by Rema Velasco RN [email or web address] 06:13 PM Report given to Laura TAFOYA Pt taken to Room #46. 18:13 [email or web address] 06:20 PM Patient out of room: 18:20 [email or web address] Complications Complication None Hemodynamics Pressures Site Systolic/A Wave Diastolic/V Wave Mean AO 82 63 73 AO 90 66 78 AO 112 74 91 LV 125 14 18 LV 141 15 16 AO 144 37 85 AO 133 70 96 AO 127 76 100 Post Procedure Information Blood Pressure: 179/98 mmHg Rhythm: NSR Post procedural instructions were given Closure Device Time Device Success/Fail 12/25/2016 6:00:00 PM Mechanical Compression Successful Site Checks Time Location Status Staff Sheath In? Note 06:03 PM Rt Wrist No bleeding/hematoma Kerline Alvarez RT (R) Pulses Time Site Pre-Procedure Post-Procedure Note 12/25/2016 5:03:00 PM Bilateral DP & PT 2+ 12/25/2016 5:19:00 PM Bilateral radial 2+ 6:02:00 PM Rt Radial 2+ Updated by Layla Victoria, RT(R) on 12/25/2016 6:21:09 PM electronically signed on 12/25/2016 6:22:07 PM with status of Final
--- NOTE | 2016-12-25 20:33 | Electrocardiograph Report ---
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
--- NOTE | 2016-12-25 20:33 | Electrocardiograph Report ---
[address] [place] [address] Test Date: 2016-12-25 Pat Name: Gonzales Mazariegos Department: 113 Room: 3B46 Gender: M Rate And Cost Analyst: JASS : 1940 Requested By: Leslie Wood Order Number: [id number] Reading MD: Chito Gonzalez MD Measurements Intervals [place] Rate: 68 P: 152 DC: 202 QRS: -29 QRSD: 136 T: 148 QT: 409 QTc: 425 Interpretive Statements SINUS RHYTHM with first degree av block RIGHT BUNDLE BRANCH BLOCK VOLTAGE CRITERIA FOR LVH LATERAL MYOCARDIAL INFARCTION, OF INDETERMINATE AGE Electronically Signed On 12-25-2016 20:31:27 EDT by Chito Gonzalez MD
[2016-12-25] MEDS: *HR* Ticagrelor 90 MG TABLET PO SCH (21:49)
[2016-12-26 05:00] LABS: Basophils % 0.3 %; Eosinophils # 0.1 K/mcL (0.0-0.6); Eosinophils % 1.5 %; Hematocrit 35.3 % (37.5-50.1); Hemoglobin 10.7 g/dL (12.9-16.9); Immature Granulocytes % 0.4 % (0-4); Immature Platelets 2.3 % (1.1-6.1); Lymphocytes # 1.4 K/mcL (0.6-4.6); Lymphocytes % 17.8 %; Mean Corpuscular HGB Conc 30.3 g/dL (31.6-35.5); Mean Corpuscular Volume 85.7 fL (83.0-100.0); Mean Platelet Volume 9.9 fL (9.4-12.4); Monocytes # 0.5 K/mcL (0.0-1.3); Monocytes % 6.9 %; Neutrophils # 5.7 K/mcL (1.6-8.9); Platelet Count 247 K/mcL (140-400); Red Blood Count 4.12 M/mcL (4.19-5.50); Red Cell Distribution Width 17.6 % (11.5-14.5); Segmented Neutrophils % 73.1 %
[2016-12-26 05:14] LABS: Calcium 8.8 mg/dL (8.6-10.8); Magnesium 1.2 mg/dL (1.6-2.6)
[2016-12-26 05:26] LABS: Potassium 4.1 mEq/L (3.5-4.5)
[2016-12-26 05:34] LABS: INR 1.2; Prothrombin Time 13.3 Seconds (9.4-12.1)
[2016-12-26] MEDS: Budesonide/Formoterol 160/4.5 MDI IH SCH ×2 (08:03→21:13)
[2016-12-26] MEDS: Albuterol 2.5 MG/3 ML NEBULIZER IH SCH ×2 (08:03→21:13)
--- NOTE | 2016-12-26 08:21 | Invasive Diagnostic Lab ---
Name: Gonzales Mazariegos Date of Study: 12/25/2016 Date: 1940 Ht: 175.0 cm /68.9 in Medical Record#: [id number] Age: 76 Wt: 73. kg / 160.94 lb Account/Order#: [id number] Gender: Male BSA: 1.88 Order #: [id number] Fluoro Dose: 545 mGy BMI: 23.84 Procedure Physician: Chito Gonzalez MD, FACC Referring MD: Referring MD: Procedures Performed: LEFT HEART CATH Transradial Stent w/ PTCA Single Major Vessel Indications: Unstable Angina Impressions: There is severe one vessel coronary artery disease. Patient had successful PTCA/Drug-Eluting Stent placement in the mid LAD. Recommendations: Optimal medical therapy of patient's disease. Aggressive risk factor modification. History/Risk Factors: CKD GERD Hypertension Dyslipidemia Family History of CAD Procedure Access obtained in the right Radial artery by percutaneous puncture Patient had successful PTCA/Drug-Eluting Stent placement in the proximal/mid LAD. Complications: None Closure Device: Mechanical Compression Hemodynamics: Pressures Site Systolic/ A Wave Diastolic/ V Wave End Diastolic/ Mean HR AO 82 63 73 84 AO 90 66 78 74 AO 112 74 91 83 LV 125 14 18 78 LV 141 15 16 82 AO 144 37 85 80 AO 133 70 96 74 AO 127 76 100 71 Coronary Dominance: right Lesion Findings/Interventions * Left Main Coronary Artery The LMCA is angiographically free of disease. * Left Anterior Descending There is a 36 mm long, 80% stenosis in the Mid LAD. The Type C lesion has no thrombus present. An intervention was performed on the Proximal LAD with a final stenosis of 0%. There were no lesion complications. The final YUNG flow was 3. * Circumflex The Circumflex has mild disease * Right Coronary Artery There is a 50% stenosis in the Mid RCA. The lesion has a YUNG flow of 3. There is a 60% stenosis in the Right PDA. Interventional Device(s) Vessel Segment Type Name Diameter (mm) Length (mm) Mid LAD Drug Eluting Stent Synergy 2.25 16 Proximal LAD Drug Eluting Stent Synergy 2.5 24 Proximal LAD Balloon Emerge Monorail 2.25 20 Updated by RT Monika(R) on 12/25/2016 6:11:52 PM Chito Gonzalez MD, FACC electronically signed on 12/26/2016 8:16:31 AM with status of Final
[2016-12-26] MEDS ORDERED: Magnesium Sulfate 2 GM in D5% in Water 100 ML IVPB ONE (08:35)
[2016-12-26] MEDS: Sucralfate 1 GM TABLET PO SCH ×4 (09:24→21:30)
[2016-12-26] MEDS: Magnesium Oxide 400 MG TABLET PO SCH ×2 (09:25→21:30)
[2016-12-26] MEDS: Finasteride 5 MG TABLET PO SCH (09:25)
[2016-12-26] MEDS: *HR* Ticagrelor 90 MG TABLET PO SCH ×2 (09:25→21:30)
[2016-12-26] MEDS: Isosorbide MONOnitrate (24 HR) 60 MG TAB.ER.24H PO SCH (09:25)
[2016-12-26] MEDS: Metoprolol XL (24 HR) Succ 25 MG TAB.ER.24H PO SCH (09:25)
[2016-12-26] MEDS: Fenofibrate 54 MG TABLET PO SCH (09:25)
[2016-12-26] MEDS: Aspirin Enteric Coated 81 MG Tablet PO SCH (09:25)
--- NOTE | 2016-12-26 10:34 | Cardiology Progress Note ---
Date of Encounter: 12/26/16 Time of Encounter: 10:00 Assessment and Plan (1) Unstable angina Current Visit: Yes Status: Acute Presented with typical chest pain symptoms; [facility] recommended. [facility] 12/25/16: s/p successful PTCA/SINA to prox-mid LAD; otherwise existing moderate non-obstructive CAD (50% mRCA and 60% R PDA). Cardiac rehab consulted. Has been chest pain free since PCI, has been up and ambulating in room without issues. Right radial cath site stable. Emphasized the importance of uninterrupted DAPT (asa + brilinta) for at least 1 year--30 day saving card provided and 1 month supply will be delivered to room prior to discharge. Patient verbalized understanding. Continue DAPT, nitrates, statin (changed to atorvastatin), and betablocker. Patient to resume coumadin today--given triple therapy, he is aware of increased risk of bleeding. (coumadin, brilinta, asa). Post PCI education provided including care of site. Cardiology will sign-off, will arrange for outpatient follow-up. (2) Hypomagnesemia Current Visit: Yes Status: Acute Mag 1.2 this AM--ordered IV rider and po replacement. Recommend rechecking in the outpatient setting to determine if po mag supplementation needed. (3) CKD (chronic kidney disease) stage 3, GFR 30-59 ml/min Current Visit: Yes Status: Chronic SCr improved from admission, slight increase from yesterday. Mucomyst given. Continue to monitor closely, avoid nephrotoxins. Defer further mgmt to primary service. (4) Atrial flutter Current Visit: Yes Status: Chronic Hx of paroxysmal atrial flutter. Recent DCCV. Has been in NSR since admission. Telemetry review: avg HR=69 SR. No PAF noted. Anticoagulated on Coumadin, INR monitored by [facility]. Has been on hold for [facility]-- order placed to resume per pharmacy dosing today. Follow-up scheduled with Dr. Wiliam Taylor for Aflutter ablation as outpatient. Qualifiers: Atrial flutter type: typical Qualified Code(s): I48.3 - Typical atrial flutter Discussion w patient/family: The assessment and plan as outlined above was discussed with the patient and/or family members who expressed understanding and agreement. All questions were answered. Thank you for involving us in the care of your patient. Please call with any questions. The patient was discussed and reviewed with Dr. Underwood; Cardiology will sign-off , please call with questions. Objective Vital Signs, Last 4 Hours Temp Pulse Resp BP Pulse Ox 12/26/16 08:04 14 98 12/26/16 07:33 98.3 F 67 16 180/82 98 General: Conversant, No Apparent Distress HEENT: Atraumatic, Normocephaly, Mucus Membranes Moist Neck: No JVD Cardiac: Reg Rate and Rhythm, Normal S1 and S2 Lungs: Normal Breath Sounds Neuro: Alert and responsive Abdomen: Soft Skin: No rashes noted on visualized skin Musculoskeletal: No Chest Wall Tenderness Extremities: No Edema, Normal Pulses Other: right radial cath site: +2 pulses, brisk cap refill. No hematoma, bleeding, or ecchymosis noted at site. Results 12/26/16 04:19 12/26/16 04:19 Lab Results 12/26/16 12/26/16 12/26/16 04:19 04:19 04:19 WBC 7.8 Hgb 10.7 L Hct 35.3 L Plt Count 247 INR 1.2 Sodium 140 Potassium 4.1 Chloride 110 H Carbon Dioxide 21 BUN 30 H Creatinine 1.75 H Glucose 88 Calcium 8.8 Magnesium 1.2 L Active Medications Acetaminophen (Tylenol) 650 mg PO Q6HR PRN PRN Reason: Mild Pain (1-3) Stop: 06/24/17 20:24 Hydrocodone Bitart/Acetaminophen ([place] 5-325 Mg) 1 tab PO Q4HR PRN PRN Reason: Moderate Pain Stop: 06/26/17 18:06 Acetylcysteine (Acetylcysteine 20%) 600 mg PO BID THELMA Stop: 12/26/16 21:01 Last Admin: 12/25/16 21:52 Dose: 600 mg Albuterol Sulfate (Proventil Neb) 2.5 mg IH BIDRESP THELMA PRN Reason: Protocol Stop: 06/25/17 10:01 Last Admin: 12/26/16 08:03 Dose: 2.5 mg Aspirin (Aspirin Ec) 81 mg PO DAILY THELMA Stop: 06/25/17 09:01 Last Admin: 12/26/16 09:25 Dose: 81 mg Atorvastatin Calcium (Lipitor) 40 mg PO HS [facility] Stop: 06/27/17 21:01 Budesonide/Formoterol Fumarate (Symbicort) 2 puff IH BIDRESP THELMA PRN Reason: Protocol Stop: 06/24/17 22:01 Last Admin: 12/26/16 08:03 Dose: 2 puff Clotrimazole (Lotrimin 1%) 1 appl TP 3XW THEL[facility] Stop: 06/26/17 09:01 Last Admin: 12/25/16 08:44 Dose: 1 appl Dicyclomine HCl (Bentyl) 10 mg PO TID PRN PRN Reason: Pain Stop: 06/24/17 20:22 Fenofibrate (Tricor) 162 mg PO DAILY THELMA Stop: 06/25/17 09:01 Last Admin: 12/26/16 09:25 Dose: 162 mg Finasteride (Proscar) 5 mg PO DAILY THELMA PRN Reason: Protocol Stop: 06/25/17 09:01 Last Admin: 12/26/16 09:25 Dose: 5 mg Sodium Chloride (0.9 % Sodium Chloride) 1,000 mls @ 100 mls/hr IVC .Q10H THELMA Stop: 06/26/17 14:31 Last Admin: 12/25/16 21:49 Dose: 100 mls/hr Isosorbide Mononitrate (Imdur) 60 mg PO DAILY THELMA Stop: 06/25/17 09:01 Last Admin: 12/26/16 09:25 Dose: 60 mg Levothyroxine Sodium (Synthroid) 50 mcg PO DAILY THELMA Stop: 06/25/17 09:01 Last Admin: 12/26/16 09:25 Dose: 50 mcg Magnesium Oxide (Mag-Ox) 400 mg PO BID THELMA PRN Reason: Protocol Stop: 12/26/16 21:01 Last Admin: 12/26/16 09:25 Dose: 400 mg Metoprolol Succinate (Toprol Xl) 25 mg PO DAILY THELMA Stop: 06/25/17 09:01 Last Admin: 12/26/16 09:25 Dose: 25 mg Nitroglycerin (Nitroglycerin) 0.4 mg SL Q5M PRN PRN Reason: Chest Pain Stop: 06/24/17 20:22 Last Admin: 12/24/16 23:02 Dose: 0.4 mg Omeprazole (Prilosec) 40 mg PO DAILY@0730 THELMA PRN Reason: Protocol Stop: 06/25/17 07:31 Last Admin: 12/26/16 09:24 Dose: 40 mg Sucralfate (Carafate) 1 gm PO QIDAC [facility] Stop: 06/24/17 22:01 Last Admin: 12/26/16 09:24 Dose: 1 gm Ticagrelor (Brilinta) 90 mg PO BID [facility] Stop: 06/26/17 21:01 Last Admin: 12/26/16 09:25 Dose: 90 mg Warfarin Sodium (Coumadin Perpt) 1 each PO DAILY@1800 PRN PRN Reason: SEE COMMENTS Stop: 06/27/17 18:01 Warfarin Sodium (Coumadin) 6 mg PO 1800 [facility] Stop: 06/27/17 18:01 - Imaging and Cardiology Echo: report reviewed Cardiac cath: report reviewed Other Results: 12 hour: avg HR=69 SR. No significant event noted. - EKG Interpretation EKG results cardiology: personally reviewed Consult Discharge Plan - Plan Referrals: Jackie Merchant EXTENSION COURSE COORDINATOR [Advanced Practice Nurse] - 12/25/16 1:00 pm Prescriptions: Ticagrelor [Brilinta] 90 mg PO BID #60 tablet
[2016-12-26] MEDS: 0.9 % Sodium Chloride 1,000 ML IVC SCH (13:28)
[2016-12-26] MEDS: Clotrimazole 1% CRM 15 GM TUBE TP SCH (13:35)
[2016-12-26] MEDS: *HR* Acetylcysteine 20% 600 MG/3 ML ORAL SYRINGE PO SCH ×2 (14:16→21:30)
--- NOTE | 2016-12-26 16:17 | Internal Med Progress Note ---
Date of Encounter: 12/26/16 Time of Encounter: 12:50 - Assessment and plan (1) CAD (coronary artery disease) Current Visit: No Status: Acute Assessment and plan: Had LHC y/d with successful PTCA/SINA to prox-mid LAD Cont ASA and Brillinta Cont Metoprolol Cont him on gentle IV hydration for renal protection Finish Acetylcysteine 600mg BID x 4 doses Qualifiers: Coronary Disease-Associated Artery/Lesion type: [place] artery [place] vs. transplanted heart: [place] heart Associated angina: angina presence unspecified Qualified Code(s): I25.10 - Atherosclerotic heart disease of [place] coronary artery without angina pectoris (2) Chest pain, rule out acute myocardial infarction Current Visit: No Status: Acute (3) Unstable angina Current Visit: Yes Status: Acute (4) Acute kidney injury superimposed on CKD Current Visit: Yes Status: Acute Assessment and plan: Improved Cr at baseline Cont him on gentle IV hydration for renal protection Finish Acetylcysteine 600mg BID x 4 doses (5) Hypomagnesemia Current Visit: Yes Status: Acute Assessment and plan: Already replaced (6) Atrial flutter Current Visit: Yes Status: Chronic Assessment and plan: Paroxysmal A flutter rate controlled with Metoprolol Resumed Coumadin Qualifiers: Atrial flutter type: typical Qualified Code(s): I48.3 - Typical atrial flutter (7) Essential hypertension Current Visit: Yes Status: Chronic Assessment and plan: stable with home meds - Subjective Interval history: Mr. Mazariegos is a 76 year old male with past medical history of non occlusive coronary artery disease, paroxysmal atrial flutter, hypertension and peptic ulcer disease who presented to the hospital with chest pain. He was recently admitted for the same and had a stress test which was read as negative. He reported 3 episodes of sub sternal chest pain which starts in the carla umbilical area and progresses up and becomes severe, crushing, pressure-like associated with dry heaving and headache. The pain improved with nitroglycerin. He did got for LHC y/d with successful PTCA/SINA to prox-mid LAD. Now pt is chest pain free. Denied any SOB. No events over night - Constitutional Vitals: Temp Pulse Resp BP Pulse Ox 98.0 F 66 16 149/75 99 12/26/16 16:12 12/26/16 16:12 12/26/16 16:12 12/26/16 16:12 12/26/16 16:12 General appearance: Present: A&O X 3 - Head Head exam: Present: atraumatic, normal inspection - Neck Neck exam general surgery: Present: supple. Absent: lymphadenopathy, thyromegaly - Respiratory Respiratory exam: Present: decreased breath sounds, wheezes. Absent: rales, respiratory distress, rhonchi - Cardiovascular Cardiovascular exam: Present: RRR, +S1, +S2. Absent: systolic murmur - GI/Abdominal GI/Abdominal exam: Present: soft. Absent: distended, rebound, tenderness - Extremities Exam Extremities exam: Absent: calf tenderness, pedal edema, tenderness - Psychiatric Psychiatric exam: Present: normal affect, normal mood Internal Medicine: Result - Labs CBC & Chem 7: 12/26/16 04:19 12/26/16 04:19 Labs: Short CBC 12/26/16 Range/Units 04:19 WBC 7.8 (4.3-11.1) K/mcL Hgb 10.7 L (12.9-16.9) g/dL Hct 35.3 L (37.5-50.1) % Plt Count 247 (140-400) K/mcL Neutrophils # 5.7 (1.6-8.9) K/mcL BMP 12/26/16 04:19 Sodium 140 Potassium 4.1 Chloride 110 H Carbon Dioxide 21 BUN 30 H Creatinine 1.75 H Glucose 88 Calcium 8.8 - ABG Interpretation ABG results: PT/INR, D-dimer PT 13.3 Seconds (9.4-12.1) H 12/26/16 04:19 Consult Discharge Plan - Plan Referrals: Noel Petty DO [Primary Care Provider] - Prescriptions: Ticagrelor [Brilinta] 90 mg PO BID #60 tablet
[2016-12-26] MEDS ORDERED: 0.9 % Sodium Chloride 1,000 ML IVC SCH (17:43)
[2016-12-26] MEDS ORDERED: Warfarin perPT PO PRN (18:00)
[2016-12-26] MEDS ORDERED: *HR* Warfarin 3 MG TABLET PO SCH (18:00)
[2016-12-27 04:46] LABS: Calcium 8.9 mg/dL (8.6-10.8); Magnesium 1.1 mg/dL (1.6-2.6); Potassium 4.1 mEq/L (3.5-4.5)
--- NOTE | 2016-12-27 07:44 | Discharge Summary ---
Date of Encounter: 12/27/16 Time of Encounter: 07:40 - Discharge Diagnosis (1) CAD (coronary artery disease) Priority: Primary Status: Acute Qualifiers: Coronary Disease-Associated Artery/Lesion type: [place] artery [place] vs. transplanted heart: [place] heart Associated angina: angina presence unspecified Qualified Code(s): I25.10 - Atherosclerotic heart disease of [place] coronary artery without angina pectoris (2) Chest pain, rule out acute myocardial infarction Priority: Primary Status: Acute (3) Unstable angina Priority: Primary Status: Acute (4) Acute kidney injury superimposed on CKD Priority: Secondary Status: Acute (5) Atrial flutter Priority: Secondary Status: Chronic Qualifiers: Atrial flutter type: typical Qualified Code(s): I48.3 - Typical atrial flutter (6) Essential hypertension Priority: Secondary Status: Chronic - Discharge Medications Prescriptions: Ticagrelor [Brilinta] 90 mg PO BID #60 tab Home Medications: Acitretin [Soriatane] 10 mg PO BID 07/24/16 [History] Atorvastatin [Lipitor] 40 mg PO HS 07/24/16 [History] Ciclopirox [Loprox] 120 ml TP 3XW 07/24/16 [History] Ergocalciferol (VITAMIN D2) [Vitamin D2] 50,000 unit PO FLORES 07/24/16 [History] Finasteride [Proscar] 5 mg PO DAILY 07/24/16 [History] FluocinoNIDE 0.05% CRM [Lidex] 1 appl TP 3XW 07/24/16 [History] Fluticasone/Salmeterol [Advair Hfa 230-21 Mcg Inhaler] 2 puff IH BID 07/24/16 [ History] Isosorbide MONOnitrate (24 HR) [Imdur] 60 mg PO DAILY 07/24/16 [History] Levothyroxine [Synthroid] 50 mcg PO DAILY 07/24/16 [History] Nitroglycerin [Nitrostat] 0.4 mg SL Q5M PRN 07/24/16 [History] Aspirin [Lo-Dose Aspirin EC] 81 mg PO DAILY 11/14/16 [History] Fenofibrate Nanocrystallized [Tricor] 145 mg PO DAILY 11/14/16 [History] Dicyclomine [Bentyl] 10 mg PO TID PRN #60 capsule 11/15/16 [Rx] Albuterol Neb [Proventil Neb] 2.5 mg IH BID 12/06/16 [History] Acetaminophen [Tylenol] 650 mg PO Q6HR PRN tab 12/17/16 [Rx] Metoprolol XL (24 HR) Succ [Toprol Xl] 25 mg PO DAILY 12/20/16 [History] Mupirocin [Bactroban Oint] 1 appl TP DAILY 12/20/16 [History] Warfarin Sodium [Coumadin] 6 mg PO DAILY 12/20/16 [History] Budesonide/Formoterol 160/4.5 [Symbicort 160/4.5] 2 puff IH BIDRESP 12/21/16 [Rx ] Omeprazole [PriLOSEC] 40 mg PO DAILY@0730 12/21/16 [Rx] Sucralfate [Carafate] 1 gm PO QIDAC #90 tablet 12/21/16 [Rx] Ticagrelor [Brilinta] 90 mg PO BID #60 tab 12/27/16 [Rx] Allergies/Adverse Reactions: Allergies No Known Allergies Allergy (Verified 12/23/16 17:23) Procedures/tests Complete & Pending: Procedures Performed prior 72 hours Category Date Time Status CL Cardiac Catheterization [CL] Routine Anthropology Instructor 12/25/16 08:05 Completed ECG 12 lead ECG [ECG] Routine Y 12/25/16 04:32 Completed ECG 12 lead ECG [ECG] Routine Y 12/25/16 04:40 Completed ECG 12 lead ECG [ECG] Routine Y 12/25/16 18:03 Ordered Date of admission: 12/23/16 20:42 Primary care physician: Noel Petty Consults: 12/24/16 08:00 Consult to Cardiology [CONS] Routine Comment: Consulting Provider: Cardiology [place] Reason for Consult: unstable angina Call Completed: No 12/26/16 08:03 Consult to Cardiac Rehabilitation-Phase1 [CONS] Routine Comment: Reason for Consult: PCI Call Completed: No - Patient Status Disposition: Home, Self-Care Condition: Good Overall status at discharge: patient is back to baseline - Discharge Instructions Follow Up With: Noel Petty DO [Primary Care Provider] - Additional Instructions: f/u with PCP in one week f/u with Cardiology in 1-2 weeks Cont taking ASA and Brilinta Cont taking Coumadin too at same home dose. Go for PT / INR on Friday and f/u with PCP for further coumadin dosing - Diet and Activity Activity: increase activity as tolerated Diet: low salt diet Hospital course: Mr. Mazariegos is a 76 year old male with past medical history of non occlusive coronary artery disease, paroxysmal atrial flutter, hypertension and peptic ulcer disease who presented to the hospital with chest pain. He was recently admitted for the same and had a stress test which was read as negative. He reported 3 episodes of sub sternal chest pain which starts in the carla umbilical area and progresses up and becomes severe, crushing, pressure-like associated with dry heaving and headache. The pain improved with nitroglycerin. He was admitted in the hospital and placed him on residential monitor. Checked his serial troponin which were negative. However he still kept on c/o intermittent sharp CP. Pt went for LHC on 12/25/16 with successful PTCA/ SINA to prox-mid LAD. Now pt is chest pain free. Denied any SOB. No events over night. He did have CKD-3 so we gave him Acetylcystein and 36 hrs IV hdyration for renal protection. Today his Cr at is baseline @ 1.82. So will d/c him home today in stable condition. Also noticed he was on HCTZ at home, but with CKD-3, I do not think he is getting any effect of HCTZ. So d/c d it here and recommend to talk to PCP about adding Lasix as diuretic if he needs one. - Time Spent with Patient Total time spent providing and/or coordinating discharge services: - Constitutional Vitals: Temp Pulse Resp BP Pulse Ox 98.1 F 72 18 142/75 98 12/27/16 03:11 12/27/16 03:11 12/27/16 03:11 12/27/16 03:11 12/27/16 03:11 General appearance: Present: A&O X 3 - Head Head exam: Present: atraumatic, normal inspection - Respiratory Respiratory exam: Present: CTAB. Absent: decreased breath sounds, rales, respiratory distress, rhonchi, wheezes - Cardiovascular Cardiovascular exam: Present: RRR, +S1, +S2. Absent: diastolic murmur, gallop, rubs, systolic murmur - GI/Abdominal GI/Abdominal exam: Present: normal bowel sounds, soft, no peritoneal signs. Absent: distended, tenderness - Extremities Exam Extremities exam: Absent: calf tenderness, pedal edema, tenderness - Psychiatric Psychiatric exam: Present: normal affect, normal mood
[2016-12-27 07:55] VITALS: BP 182/94
--- NOTE | 2016-12-27 08:13 | Physician Discharge Referral ---
Home Health/Hosp Referral Info Transfer to: Home Health Provider in Charge Post Discharge: PCP - Diagnosis (1) CAD (coronary artery disease) Status: Acute (2) Chest pain, rule out acute myocardial infarction Status: Acute (3) Unstable angina Status: Acute (4) Acute kidney injury superimposed on CKD Status: Acute (5) Atrial flutter Status: Chronic (6) Essential hypertension Status: Chronic - Respiratory Orders Smoking Cessation: Smoking cessation has been advised. For more information, call the [place] Tobacco Quit Line at 3-946-NMJQ-NOW. - Services Needed Following services are medically necessary services: Nursing - Transfer Medications Prescriptions: Ticagrelor [Brilinta] 90 mg PO BID #60 tab Home Medications: Acitretin [Soriatane] 10 mg PO BID 07/24/16 [History] Atorvastatin [Lipitor] 40 mg PO HS 07/24/16 [History] Ciclopirox [Loprox] 120 ml TP 3XW 07/24/16 [History] Ergocalciferol (VITAMIN D2) [Vitamin D2] 50,000 unit PO FLORES 07/24/16 [History] Finasteride [Proscar] 5 mg PO DAILY 07/24/16 [History] FluocinoNIDE 0.05% CRM [Lidex] 1 appl TP 3XW 07/24/16 [History] Fluticasone/Salmeterol [Advair Hfa 230-21 Mcg Inhaler] 2 puff IH BID 07/24/16 [ History] Isosorbide MONOnitrate (24 HR) [Imdur] 60 mg PO DAILY 07/24/16 [History] Levothyroxine [Synthroid] 50 mcg PO DAILY 07/24/16 [History] Nitroglycerin [Nitrostat] 0.4 mg SL Q5M PRN 07/24/16 [History] Aspirin [Lo-Dose Aspirin EC] 81 mg PO DAILY 11/14/16 [History] Fenofibrate Nanocrystallized [Tricor] 145 mg PO DAILY 11/14/16 [History] Dicyclomine [Bentyl] 10 mg PO TID PRN #60 capsule 11/15/16 [Rx] Albuterol Neb [Proventil Neb] 2.5 mg IH BID 12/06/16 [History] Acetaminophen [Tylenol] 650 mg PO Q6HR PRN tab 12/17/16 [Rx] Metoprolol XL (24 HR) Succ [Toprol Xl] 25 mg PO DAILY 12/20/16 [History] Mupirocin [Bactroban Oint] 1 appl TP DAILY 12/20/16 [History] Warfarin Sodium [Coumadin] 6 mg PO DAILY 12/20/16 [History] Budesonide/Formoterol 160/4.5 [Symbicort 160/4.5] 2 puff IH BIDRESP 12/21/16 [Rx ] Omeprazole [PriLOSEC] 40 mg PO DAILY@0730 12/21/16 [Rx] Sucralfate [Carafate] 1 gm PO QIDAC #90 tablet 12/21/16 [Rx] Ticagrelor [Brilinta] 90 mg PO BID #60 tab 12/27/16 [Rx] Allergies/Adverse Reactions: Allergies No Known Allergies Allergy (Verified 12/23/16 17:23) Certification: Further, I certify that my clinical findings support that this patient is homebound (i.e. absences from home require considerable and taxing effort and are for medical reasons or restorationist services or infrequently or short duration when for other reasons) because: Homebound Reason: Patient requires assistance of a person or device to safely leave home Attestation: My signature below is to certify that this patient is under my care and that I, or nurse practitioner, or a physician's dental chairside assistant working with me, has a face-to -face encounter with this patient.
[2016-12-27] MEDS: Budesonide/Formoterol 160/4.5 MDI IH SCH (08:18)
[2016-12-27] MEDS: Albuterol 2.5 MG/3 ML NEBULIZER IH SCH (08:18)
[2016-12-27] MEDS: Aspirin Enteric Coated 81 MG Tablet PO SCH (09:49)
[2016-12-27] MEDS: Isosorbide MONOnitrate (24 HR) 60 MG TAB.ER.24H PO SCH (09:49)
[2016-12-27] MEDS: Finasteride 5 MG TABLET PO SCH (09:50)
[2016-12-27] MEDS: Fenofibrate 54 MG TABLET PO SCH (09:50)
[2016-12-27] MEDS: Sucralfate 1 GM TABLET PO SCH (09:50)
[2016-12-27] MEDS: Metoprolol XL (24 HR) Succ 25 MG TAB.ER.24H PO SCH (09:50)
[2016-12-27] MEDS: *HR* Ticagrelor 90 MG TABLET PO SCH (09:50)
== END 2016-12-27 10:14 | disposition home or self-care (01) | DRG 247 ==
LOC: EMEROO 17:17 → 3BNU 17:17
PROVIDERS: ADMIT Hospitalist; ATTEND Registered Nurse